=== PATIENT | female | born 1995 | race Caucasian/White ===

== ENCOUNTER 2018-08-07 18:46 | Emergency (ER) | payer MEDICAID, OTHER ==
[~2018-08-07] VITALS: Ht 170.2 cm; Wt 64.9 kg
[~2018-08-07 18:46] MED LIST: ACYC400T PO; BCP; FLUC200T45 PO; METR500T PO; SULF1TAB35 PO; TRAM50TA2 PO
--- OUTSIDE RECORDS SUMMARY | 2018-08-07 18:51 | XMS REPORT ---
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 Name Role Phone Migration, Doctor Unavailable Unavailable PROBLEMS Type Condition ICD9-CM Code AMN19-OU Code Onset Dates Condition Status SNOMED Code Problem ADD (attention deficit disorder) without hyperactivity F98.8 Active 17631653 Problem Depression, major, recurrent, in remission F33.40 Active 24511276 Problem Genital herpes, unspecified A60.00 Active 50286073 Problem Migraine with aura and without status migrainosus, not intractable G43.109 Active 2226887 Problem Moderate episode of recurrent major depressive disorder F33.1 Active 384132549 Problem Generalized anxiety disorder F41.1 Active 85210216 ALLERGIES No Information ENCOUNTERS Encounter Location Date Diagnosis [facility] [id number] [place] [address]- [address]903 Jul, [facility] [address] [address] Jun, ADD (attention deficit disorder) without hyperactivity F98.8 [facility] [id number] [place] [address] 53878- 1600 May, ADD (attention deficit disorder) without hyperactivity F98.8 [facility] [id number] [place] [address] 50529- 5163 Apr, ADD (attention deficit disorder) without hyperactivity F98.8 [facility] [id number] [place] [address] 69279- 5723 Mar, ADD (attention deficit disorder) without hyperactivity F98.8 [facility] [id number] [place] [address] 61385- 1367 Mar, ADD (attention deficit disorder) without hyperactivity F98.8 [facility] [address] [address] Feb, Acute bacterial conjunctivitis of left eye H10.022 [address] [place] [address] 35781- 6516 Feb, ADD (attention deficit disorder) without hyperactivity F98.8 ; Encounter for immunization Z23 and Rash R21 [id number] [address] Jan, [address] [id number] [place] [address] 68048- 4924 Dec, ADD (attention deficit disorder) without hyperactivity F98.8 [address] [id number] [place] [address] 42699- 5303 Dec, Generalized anxiety disorder F41.1 ; Depression, major, recurrent, in remission F33.40 and ADD (attention deficit disorder) without hyperactivity F98.8 [place] [id number] [place] [address] 28779- 7992 Nov, ADD (attention deficit disorder) without hyperactivity F98.8 [address] [address] [place] [address] 83720- 0243 Nov, Generalized anxiety disorder F41.1 ; Moderate episode of recurrent major depressive disorder F33.1 and ADD (attention deficit disorder) without hyperactivity F98.8 [address] [address] [address] [address] Oct, ADD (attention deficit disorder) without hyperactivity F98.8 [address] [address] [address] Oct, Generalized anxiety disorder F41.1 ; Moderate episode of recurrent major depressive disorder F33.1 and ADD (attention deficit disorder) without hyperactivity F98.8 [address] [address] [place] [address] 08524- 4578 Oct, Generalized anxiety disorder F41.1 ; Moderate episode of recurrent major depressive disorder F33.1 and ADD (attention deficit disorder) without hyperactivity F98.8 [address] [address] [address] Sep, ADD (attention deficit disorder) without hyperactivity F98.8 [facility] [id number] [place] [address] 49581- 1759 Sep, Generalized anxiety disorder F41.1 ; Moderate episode of recurrent major depressive disorder F33.1 and ADD (attention deficit disorder) without hyperactivity F98.8 [place] [id number] [place] [address] 18418- 4450 Sep, ADD (attention deficit disorder) without hyperactivity F98.8 [place] [id number] [place] [address] 78522- 0130 August, Generalized anxiety disorder F41.1 ; Moderate episode of recurrent major depressive disorder F33.1 and ADD (attention deficit disorder) without hyperactivity F98.8 [place] [id number] [place] [address] 51292- 9019 August, Generalized anxiety disorder F41.1 ; Moderate episode of recurrent major depressive disorder F33.1 and ADD (attention deficit disorder) without hyperactivity F98.8 [address] [address] [place] [address] 43131- 6535 Jul, ADD (attention deficit disorder) without hyperactivity F98.8 [address] [address] [address] 84[address] Jul, ADD (attention deficit disorder) without hyperactivity F98.8 [place] [address] [address] 8[address] Jul, Generalized anxiety disorder F41.1 ; Moderate episode of recurrent major depressive disorder F33.1 and ADD (attention deficit disorder) without hyperactivity F98.8 [address] [address] [address] [address] Jun, Rash R21 [facility] [id number] [place] [address] 47387- 8142 Jun, Generalized anxiety disorder F41.1 and ADD (attention deficit disorder) without hyperactivity F98.8 [facility] [id number] [place] [address] 65066 -3868 09 Jun, 2017 Skin lesion L98.9 [place] [id number] [place] [address] 68690- 5279 07 Jun, 2017 Severe persistent reactive airway disease with acute exacerbation J45.51 [address] [address] [address]- 6569 Jun, Generalized anxiety disorder F41.1 and ADD (attention deficit disorder) without hyperactivity F98.8 [facility] [address] [address] 16 May, 2017 Other specified bacterial agents as the cause of diseases classified elsewhere B96.89 and Acute pharyngitis due to other specified organisms J02.8 [address] [address] [address]- [address]275 14 May, 2017 Generalized anxiety disorder F41.1 [address] [address] 14296- 5778 14 May, 2017 Shortness of breath R06.02 ; Moderate episode of recurrent major depressive disorder F33.1 and Anxiety F41.9 [facility] [id number] [place] [address] 86437 -1150 14 Jan, 2017 Folliculitis L73.9 [address] [address] 68071- 7933 23 May, 2016 control counseling Z30.09 [place] [id number] [place] [address] 42674- 0147 15 Nov, 2015 Family planning, BCP ( control pills) maintenance Z30.41 [address] [address] 23602- 5171 August, [address] [address] 8[address]14- 0408 28 Danyel, 2016 Encounter for counseling regarding contraception Z30.9 ; Genital herpes, unspecified A60.00 ; OCP (oral contraceptive pills) initiation Z30.011 and Routine screening for STI (sexually transmitted infection) Z11.3 [facility] [address] [address] 14 Jul, 2014 [facility] [address] [address] 0155 Jul, [facility] [id number] [address]- 9608 Apr, [facility] [id number] [place] [address] 34601- 5764 Apr, [facility] [id number] [address] 74[address] Mar, [facility] [id number] [place] [address] 94024- 6510 Mar, [facility] [address] [address] 2307 Jan, [facility] [address] [address]- 3092 Jan, [facility] [address] [address]- 1519 Sep, [facility] [address] [address]- 5140 Sep, [facility] [address] [address]- 4821 Jul, [facility] [address] Jul, [facility] [address] [address] Jun, [facility] [address] [address] Jun, [facility] [place] [facility] [address] [id number] [place] [address]- 4510 May, [facility] [place] [facility] [address] [id number] [place] [address]- 1102 May, [facility] [place] [facility] [address] [id number] [place] [address]- 0663 May, [facility] [place] [facility] [address] [id number] [place] [address]- 8157 May, [facility] [place] [facility] [address] [id number] [place] [address]- 3184 May, [facility] [place] [facility] [address] [id number] [place] [address]- 7628 May, [facility] [place] [facility] [address] [id number] [place] [address]- 6278 May, [facility] [place] [facility] [address] [id number] [place] [address]- 3077 May, [facility] [place] [facility] [address] [id number] [place] [address]- 0076 May, [facility] [place] [facility] [address] [id number] [place] [address]- 4737 May, [facility] [place] [facility] [address] [id number] [place] [address]- 5977 Apr, [facility] [place] [facility] [address] [id number] [address]- 6868 Apr, [facility] [place] [facility] [address] [id number] [place] [address]- 8147 Apr, [facility] [place] [facility] [address] [id number] [place] [address]- 1817 Apr, [facility] [place] [facility] [address] [id number] [place] [address]- 0299 Apr, [facility] [place] [facility] [address] [id number] [place] [address]- 8235 17 Apr, 2013 [facility] [address] [id number] [place] [address]- 4027 Apr, [facility] [place] [facility] [address] [id number] [place] [address]- 0921 Apr, [facility] [place] [facility] [address] [id number] [place] [address]- 8295 Apr, [facility] [place] [facility] [address] [id number] [place] [address]- 8807 Apr, [facility] [place] [facility] [address] [id number] [place] [address]- 9007 Apr, [facility] [place] [facility] [address] [id number] [place] [address]- 2139 Apr, [facility] [place] [facility] [address] [id number] [place] [address]- 6848 Apr, [facility] [place] [facility] [address] [id number] [place] [address]- 4567 Apr, [facility] [place] [facility] [address] [id number] [place] [address]- 5934 Mar, [facility] [place] [facility] [address] [id number] [place] [address]- 8976 Mar, [facility] [place] [facility] [address] [id number] [place] [address]- 0642 Mar, [facility] [place] [facility] [address] [id number] [place] [address]- 5054 Mar, [facility] [place] [facility] [address] [id number] [place] [address]- 2011 Feb, [facility] [place] [facility] [address] [id number] [place] [address]- 3033 Feb, [facility] [place] [facility] [address] [id number] [place] [address]- 6944 Feb, [facility] [address] [facility] [id number] [place] [address] [address] Feb, [facility] [address] [facility] [id number] [address]- 4698 Nov, [facility] [address] [facility] [id number] [place] [address]- 4005 Sep, IMMUNIZATIONS No Known Immunizations SOCIAL HISTORY Never Assessed REASON FOR VISIT EMR-[facility] PLAN OF CARE VITAL SIGNS MEDICATIONS Unknown Medications RESULTS No Results PROCEDURES No Known procedures INSTRUCTIONS MEDICATIONS ADMINISTERED No Known Medications MEDICAL (GENERAL) HISTORY Type Description Date Medical History genital herpes Medical History depression Surgical History No know Surgical history
--- OUTSIDE RECORDS SUMMARY | 2018-08-07 18:51 | XMS REPORT ---
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 Web Services Name Role Phone FARIDA DE LUNA Unavailable PROBLEMS Type Condition ICD9-CM Code TLI59-TB Code Onset Dates Condition Status SNOMED Code Problem Depression, major, recurrent, in remission F33.40 Active 37606021 Problem ADD (attention deficit disorder) without hyperactivity F98.8 Active 32284944 Problem Migraine with aura and without status migrainosus, not intractable G43.109 Active 9004655 Problem Genital herpes, unspecified A60.00 Active 07155450 Problem Generalized anxiety disorder F41.1 Active 39895694 Problem Moderate episode of recurrent major depressive disorder F33.1 Active [id number] ALLERGIES No Information ENCOUNTERS Encounter Location Date Diagnosis [facility] [id number] [place] [address] 5925 Mar, ADD (attention deficit disorder) without hyperactivity F98.8 [facility] [id number] [place] [address]71 [address]61 Feb, Acute bacterial conjunctivitis of left eye H10.022 [facility] [id number] [place] [address]2853- 5515 Feb, ADD (attention deficit disorder) without hyperactivity F98.8 ; Encounter for immunization Z23 and Rash R21 [facility] [id number] [place] [address]80- 9953 Jan, [facility] [address] [address] Dec, ADD (attention deficit disorder) without hyperactivity F98.8 [facility] [address] [address] Dec, Generalized anxiety disorder F41.1 ; Depression, major, recurrent, in remission F33.40 and ADD (attention deficit disorder) without hyperactivity F98.8 [facility] [address] [address] Nov, ADD (attention deficit disorder) without hyperactivity F98.8 [facility] [address] [address] Nov, Generalized anxiety disorder F41.1 ; Moderate episode of recurrent major depressive disorder F33.1 and ADD (attention deficit disorder) without hyperactivity F98.8 [facility] [id number] [place] [address] 72973- 0788 Oct, ADD (attention deficit disorder) without hyperactivity F98.8 [place] [id number] [place] [address]- 4552 Oct, Generalized anxiety disorder F41.1 ; Moderate episode of recurrent major depressive disorder F33.1 and ADD (attention deficit disorder) without hyperactivity F98.8 [place] [address] [address] Oct, Generalized anxiety disorder F41.1 ; Moderate episode of recurrent major depressive disorder F33.1 and ADD (attention deficit disorder) without hyperactivity F98.8 [place] [address] [address] Sep, ADD (attention deficit disorder) without hyperactivity F98.8 [facility] [address] [address] Sep, Generalized anxiety disorder F41.1 ; Moderate episode of recurrent major depressive disorder F33.1 and ADD (attention deficit disorder) without hyperactivity F98.8 [facility] [address] [address] Sep, ADD (attention deficit disorder) without hyperactivity F98.8 [facility] [address] [address] August, Generalized anxiety disorder F41.1 ; Moderate episode of recurrent major depressive disorder F33.1 and ADD (attention deficit disorder) without hyperactivity F98.8 [place] [id number] [place] [address] 8[address]15- 8327 August, Generalized anxiety disorder F41.1 ; Moderate episode of recurrent major depressive disorder F33.1 and ADD (attention deficit disorder) without hyperactivity F98.8 [place] [id number] [place] [address]60- 5473 Jul, ADD (attention deficit disorder) without hyperactivity F98.8 [place] [id number] [place] [address] 12876- 2933 Jul, ADD (attention deficit disorder) without hyperactivity F98.8 [place] [id number] [place] [address] 14052- 1626 Jul, Generalized anxiety disorder F41.1 ; Moderate episode of recurrent major depressive disorder F33.1 and ADD (attention deficit disorder) without hyperactivity F98.8 [place] [id number] [place] [address] 87935- 1123 Jun, Rash R21 [place] [id number] [place] [address] 02143- 3480 Jun, Generalized anxiety disorder F41.1 and ADD (attention deficit disorder) without hyperactivity F98.8 [facility] [id number] [place] [address]4193 Jun, Skin lesion L98.9 [facility] [id number] [place] [address] 59909- 7203 Jun, Severe persistent reactive airway disease with acute exacerbation J45.51 [place] [id number] [place] [address] 67893- 0704 Jun, Generalized anxiety disorder F41.1 and ADD (attention deficit disorder) without hyperactivity F98.8 [facility] [id number] [place] [address] 11123 -3096 May, Other specified bacterial agents as the cause of diseases classified elsewhere B96.89 and Acute pharyngitis due to other specified organisms J02.8 [place] [id number] [place] [address] 90293- 9736 14 May, 2017 Generalized anxiety disorder F41.1 [place] [id number] [place] [address] 60558- 0088 14 May, 2017 Shortness of breath R06.02 ; Moderate episode of recurrent major depressive disorder F33.1 and Anxiety F41.9 [facility] [id number] [place] [address] 33808 -2419 14 Jan, 2017 Folliculitis L73.9 [place] [id number] [place] [address] 93000- 9322 23 May, 2016 control counseling Z30.09 [place] [address] [address]- [address] 15 Nov, 2015 Family planning, BCP ( control pills) maintenance Z30.41 [place] [id number] [place] [address] 27761- 9632 August, [place] [id number] [place] [address] 81697- 4086 Apr, Encounter for counseling regarding contraception Z30.9 ; Genital herpes, unspecified A60.00 ; OCP (oral contraceptive pills) initiation Z30.011 and Routine screening for STI (sexually transmitted infection) Z11.3 [place] [id number] [place] [address] 62764- 8861 Jul, [place] [id number] [place] [address] 94667- 0592 Jul, [place] [id number] [place] [address] 39371- 0635 Apr, [place] [id number] [place] [address] 43638- 4865 Apr, [facility] [place] [facility] [address] [id number] [place] [address]345 Mar, [facility] [place] [facility] [address] [id number] [place] [address]- 2861 Mar, [facility] [place] [facility] [address] [id number] [place] [address]- 9372 Jan, [facility] [place] [facility] [address] [id number] [place] [address]- 5098 Jan, [facility] [place] [facility] [address] [id number] [place] [address]- 7964 Sep, [facility] [place] [facility] [address] [id number] [place] [address]- 3089 Sep, [facility] [place] [facility] [address] [facility] [id number] [place] [address]- 5883 Jul, [facility] [place] [facility] [address] [id number] [place] [address]- 9156 Jul, [facility] [place] [facility] [address] [facility] [id number] [place] [address]- 6522 Jun, [facility] [place] [facility] [address] [facility] [id number] [place] [address]- 1765 Jun, [facility] [place] [facility] [address] [facility] [id number] [place] [address]- 9302 May, [facility] [place] [facility] [address] [id number] [address] 0017 May, [facility] [place] [facility] [address] [id number] [place] [address]- 6712 May, [facility] [place] [facility] [address] [id number] [place] [address]- 8950 May, [facility] [place] [facility] [address] [facility] [id number] [place] [address]- 3532 May, [facility] [place] [facility] [address] [facility] [id number] [address]- 9511 May, [facility] [place] [facility] [address] [id number] [place] [address]- 0336 May, [facility] [place] [facility] [address] [id number] [place] [address]- 3368 May, [facility] [place] [facility] [address] [id number] [place] [address]- 5276 May, [facility] [place] [facility] [address] [id number] [place] [address]- 7187 May, [facility] [place] [facility] [address] [id number] [place] [address]- 6999 Apr, [facility] [place] [facility] [address] [id number] [place] [address]- 4471 Apr, [facility] [place] [facility] [address] [id number] [place] [address]- 1021 Apr, [facility] [place] [facility] [address] [id number] [place] [address]- 4665 Apr, [facility] [place] [facility] [address] [id number] [place] [address]- 1781 Apr, [facility] [place] [facility] [address] [id number] [place] [address]- 0827 Apr, [facility] [place] [facility] [address] [id number] [place] [address]- 1553 Apr, [facility] [place] [facility] [address] [id number] [place] [address]- 1567 Apr, [facility] [place] [facility] [address] [id number] [place] [address]- 3183 Apr, [facility] [place] [facility] [address] [id number] [place] [address]- 2965 Apr, [facility] [place] [facility] [address] [id number] [place] [address]- 2265 Apr, [facility] [address] [facility] [id number] [address]- [address] Apr, [facility] [address] [address]- 9496 Apr, [facility] [address] [facility] [id number] [place] [address]- 5876 Apr, [facility] [address] [address]- 0063 Mar, [facility] [address] [facility] [id number] [address]- 1832 Mar, [facility] [id number] [place] [address] 06012- 9736 Mar, [facility] [address] [address]- 9750 Mar, [facility] [address] [address]- 6325 Feb, [facility] [address] [address] Feb, [facility] [address] [address]- 8038 Feb, [facility] [address] [address]- 1466 Feb, [facility] [address] [address]- 8139 Nov, [facility] [id number] [address]- 4819 Sep, IMMUNIZATIONS No Known Immunizations SOCIAL HISTORY Never Assessed REASON FOR VISIT Controlled Med Refill PLAN OF CARE VITAL SIGNS MEDICATIONS Medication Instructions Dosage Frequency Start Date End Date Duration Status Vyvanse 20 MG Orally Once a day 1 tablet in the morning 24h Mar, 28 days Active RESULTS No Results PROCEDURES No Known procedures INSTRUCTIONS MEDICATIONS ADMINISTERED No Known Medications MEDICAL (GENERAL) HISTORY Type Description Date Medical History genital herpes Medical History depression Surgical History No know Surgical history
--- OUTSIDE RECORDS SUMMARY | 2018-08-07 18:51 | XMS REPORT ---
Author Author YENNIFER DE LUNA [facility] IN [facility] Address [address] [place] [address] Care Team Providers Care Triage Assistant Name Role Phone YENNIFER DE LUNA Unavailable PROBLEMS Type Condition ICD9-CM Code AET87-HW Code Onset Dates Condition Status SNOMED Code Problem Depression, major, recurrent, in remission F33.40 Active 36623043 Problem ADD (attention deficit disorder) without hyperactivity F98.8 Active 45710970 Problem Migraine with aura and without status migrainosus, not intractable G43.109 Active 1112003 Problem Genital herpes, unspecified A60.00 Active 17551910 Problem Generalized anxiety disorder F41.1 Active 18601957 Problem Moderate episode of recurrent major depressive disorder F33.1 Active 676108869 ALLERGIES Substance Reaction Event Type Date Status Penicillin V Potassium rash Drug Allergy Feb, Active ENCOUNTERS Encounter Location Date Diagnosis [facility], [place] [address] [address] Mar, ADD (attention deficit disorder) without hyperactivity F98.8 [facility] [address] [address] Feb, Acute bacterial conjunctivitis of left eye H10.022 [facility], [place] [address] [address] 7[address] Feb, ADD (attention deficit disorder) without hyperactivity F98.8 ; Encounter for immunization Z23 and Rash R21 [facility], [place] [address] [address] Jan, [facility], [place] [address] [address] Dec, ADD (attention deficit disorder) without hyperactivity F98.8 [facility], [place] [address] [place] [address] Dec, Generalized anxiety disorder F41.1 ; Depression, major, recurrent, in remission F33.40 and ADD (attention deficit disorder) without hyperactivity F98.8 [facility], [place] [address] [address] Nov, ADD (attention deficit disorder) without hyperactivity F98.8 [place] [address] [place] [id number] [place] [address] 83881- 2471 Nov, Generalized anxiety disorder F41.1 ; Moderate episode of recurrent major depressive disorder F33.1 and ADD (attention deficit disorder) without hyperactivity F98.8 [place] [id number] [place] [address] 75323- 3044 Oct, ADD (attention deficit disorder) without hyperactivity F98.8 [place] [address] [id number] [place] [address] 24232- 4325 Oct, Generalized anxiety disorder F41.1 ; Moderate episode of recurrent major depressive disorder F33.1 and ADD (attention deficit disorder) without hyperactivity F98.8 [place] [address] [address] 74[address] Oct, Generalized anxiety disorder F41.1 ; Moderate episode of recurrent major depressive disorder F33.1 and ADD (attention deficit disorder) without hyperactivity F98.8 [place] [address] [address] Sep, ADD (attention deficit disorder) without hyperactivity F98.8 [facility], [place] [address] [address] 20[address] Sep, Generalized anxiety disorder F41.1 ; Moderate episode of recurrent major depressive disorder F33.1 and ADD (attention deficit disorder) without hyperactivity F98.8 [place] [address] [address] 1628 Sep, ADD (attention deficit disorder) without hyperactivity F98.8 [place] [address] [id number] [place] [address] 06692- 5896 August, Generalized anxiety disorder F41.1 ; Moderate episode of recurrent major depressive disorder F33.1 and ADD (attention deficit disorder) without hyperactivity F98.8 [place] [address] [id number] [place] [address] 98497- 7315 August, Generalized anxiety disorder F41.1 ; Moderate episode of recurrent major depressive disorder F33.1 and ADD (attention deficit disorder) without hyperactivity F98.8 [place] [address] [id number] [place] [address] 40712- 3058 Jul, ADD (attention deficit disorder) without hyperactivity F98.8 [place] [address] [id number] [place] [address] 00973- 9876 Jul, ADD (attention deficit disorder) without hyperactivity F98.8 [place] [address] [id number] [place] [address] 03246- 3672 Jul, Generalized anxiety disorder F41.1 ; Moderate episode of recurrent major depressive disorder F33.1 and ADD (attention deficit disorder) without hyperactivity F98.8 [place] [address] [id number] [place] [address] 12534- 4717 Jun, Rash R21 [place] [address] [id number] [place] [address] 48623- 9915 Jun, Generalized anxiety disorder F41.1 and ADD (attention deficit disorder) without hyperactivity F98.8 [facility] [id number] [place] [address] 32777 -8747 Jun, Skin lesion L98.9 [place] [address] [id number] [place] [address] 90143- 5706 Jun, Severe persistent reactive airway disease with acute exacerbation J45.51 [facility], [place] [address] [place] [id number] [place] [address] 85772- 4929 Jun, Generalized anxiety disorder F41.1 and ADD (attention deficit disorder) without hyperactivity F98.8 [facility] [id number] [place] [address] 63089 -9333 16 May, 2017 Other specified bacterial agents as the cause of diseases classified elsewhere B96.89 and Acute pharyngitis due to other specified organisms J02.8 [place] [address] [id number] [place] [address] 58155- 1999 14 May, 2017 Generalized anxiety disorder F41.1 [place] [address] [address]- 1264 14 May, 2017 Shortness of breath R06.02 ; Moderate episode of recurrent major depressive disorder F33.1 and Anxiety F41.9 [facility] IN [facility] [address] [address] 14 Jan, 2017 Folliculitis L73.9 [place] [address] [address]- 5093 23 May, 2016 control counseling Z30.09 [place] [address] [address]- 4974 15 Nov, 2015 Family planning, BCP ( control pills) maintenance Z30.41 [place] [address] [address]- 5551 August, [place] [address] [address]- 6[address] Apr, Encounter for counseling regarding contraception Z30.9 ; Genital herpes, unspecified A60.00 ; OCP (oral contraceptive pills) initiation Z30.011 and Routine screening for STI (sexually transmitted infection) Z11.3 [place] [address] [id number] [place] [address] 76739- 7830 Jul, [place] [address] 81724- 2613 Jul, [place] [address] 69482- 7626 Apr, [place] [address] [address]- 8065 Apr, [facility] [place] [facility] [address] [id number] [place] [address]- 2318 Mar, [facility] [place] [facility] [address] [id number] [place] [address]- 8647 Mar, [facility] [place] [facility] [address] [facility] [id number] [place] [address]- 7489 Jan, [facility] [place] [facility] [address] [id number] [place] [address]- 9564 Jan, [facility] [place] [facility] [address] [id number] [place] [address]- 2885 Sep, [facility] [place] [facility] [address] [facility] [id number] [place] [address]- 1423 Sep, [facility] [place] [facility] [address] [facility] [id number] [place] [address]- 5107 Jul, [facility] [place] [facility] [address] [id number] [place] [address]- 6500 Jul, [facility] [place] [facility] [address] [facility] [id number] [place] [address]- 8487 Jun, [facility] [place] [facility] [address] [facility] [id number] [place] [address]- 3601 Jun, [facility] [place] [facility] [address] [facility] [id number] [address]- 7332 May, [facility] [place] [facility] [address] [id number] [address]- 8708 May, [facility] [place] [facility] [address] [id number] [place] [address]- 3463 May, [facility] [place] [facility] [address] [facility] [id number] [place] [address]- 0218 May, [facility] [place] [facility] [address] [facility] [id number] [place] [address]- 7382 May, [facility] [place] [facility] [address] [id number] [place] [address]- 6926 May, [facility] [place] [facility] [address] [id number] [place] [address]- 0739 May, [facility] [place] [facility] [address] [id number] [place] [address]- 6164 May, [facility] [place] [facility] [address] [id number] [place] [address]- 1230 May, [facility] [place] [facility] [address] [id number] [place] [address]- 3969 May, [facility] [place] [facility] [address] [id number] [place] [address]- 9986 Apr, [facility] [place] [facility] [address] [id number] [place] [address]- 0828 Apr, [facility] [place] [facility] [address] [id number] [place] [address]- 2144 Apr, [facility] [place] [facility] [address] [id number] [place] [address]- 7922 Apr, [facility] [place] [facility] [address] [id number] [place] [address]- 4207 Apr, [facility] [place] [facility] [address] [id number] [place] [address]- 1239 Apr, [facility] [place] [facility] [address] [id number] [place] [address]- 8472 Apr, [facility] [place] [facility] [address] [id number] [place] [address]- 7469 Apr, [facility] [place] [facility] [address] [id number] [place] [address]- 0521 Apr, [facility] [place] [facility] [address] [id number] [place] [address]- 8177 Apr, [facility] [place] [facility] [address] [id number], [place] [address]- 2178 Apr, [facility], [place] [id number] [address] Apr, [facility], [place] [address], [place] [address]- 9136 Apr, [facility], [place] [id number] 67[address] Apr, [facility], [place] [address] [address] Mar, [facility], [place] [id number] 1294 Mar, [facility], [place] [address] [address] Mar, [facility], [place] [address] [address] Mar, [facility], [place] [address], [place] [address]- 2200 Feb, [facility], [place] [address], [place] [address]- 9449 Feb, [facility], [place] [address], [place] [address]- 1571 Feb, [facility], [place] [id number] [address]- 3080 Feb, [facility], [place] [id number] [address]- 9242 Nov, [facility], [place] [id number] [address] Sep, IMMUNIZATIONS No Known Immunizations SOCIAL HISTORY Never Assessed REASON FOR VISIT woke up this am with left eye red, swollen, itching, painful, et red. repirts some drainage last noc. [email or web address] PLAN OF CARE Activity Details Follow Up if not improving with PCP or reg follow up Reason: VITAL SIGNS Height 67 in 2018-03-02 Weight 145.2 lbs 2018-03-02 Temperature 97.0 degrees Fahrenheit 2018-03-02 Heart Rate 90 bpm 2018-03-02 Respiratory Rate 20 2018-03-02 BMI 22.74 kg/m2 2018-03-02 Blood pressure systolic 118 mmHg 2018-03-02 Blood pressure diastolic 76 mmHg 2018-03-02 MEDICATIONS Medication Instructions Dosage Frequency Start Date End Date Duration Status Benadryl Allergy 25 MG Orally every 8 hrs 1 tablet as needed 8h Active Gentamicin Sulfate 0.3 % Ophthalmic every 4 hrs 1 drop into affected eye 4h Feb, 7 days Active Vyvanse 20 MG Orally Once a day 1 tablet in the morning 24h Dec, 28 days Active RESULTS No Results PROCEDURES No Known procedures INSTRUCTIONS MEDICATIONS ADMINISTERED No Known Medications MEDICAL (GENERAL) HISTORY Type Description Date Medical History genital herpes Medical History depression Surgical History No know Surgical history
--- OUTSIDE RECORDS SUMMARY | 2018-08-07 18:52 | XMS REPORT ---
Author Author FARIDA DE LUNA Organization [facility] Address [address] [place] [address] Care Team Providers Care Account Executive Trainee Name Role Phone FARIDA DE LUNA Unavailable PROBLEMS Type Condition ICD9-CM Code AFW48-HK Code Onset Dates Condition Status SNOMED Code Problem ADD (attention deficit disorder) without hyperactivity F98.8 Active 24428827 Problem Generalized anxiety disorder F41.1 Active 04084378 Problem Genital herpes, unspecified A60.00 Active 35329518 Problem Moderate episode of recurrent major depressive disorder F33.1 Active 289270431 Problem Migraine with aura and without status migrainosus, not intractable G43.109 Active 9214471 ALLERGIES No Information ENCOUNTERS Encounter Location Date Diagnosis [place] [address] [id number] [place] [address]0719- 9896 Dec, [place] [address] [address]- [address] Nov, ADD (attention deficit disorder) without hyperactivity F98.8 [place] [address] [place] [address] [id number] [place] [address] 40186- 9992 Nov, Generalized anxiety disorder F41.1 ; Moderate episode of recurrent major depressive disorder F33.1 and ADD (attention deficit disorder) without hyperactivity F98.8 [place] [address] [place] [address] [id number] [place] [address] 86040- 8714 Oct, ADD (attention deficit disorder) without hyperactivity F98.8 [place] [address] [place] [address] [id number] [place] [address] 32786- 8892 Oct, Generalized anxiety disorder F41.1 ; Moderate episode of recurrent major depressive disorder F33.1 and ADD (attention deficit disorder) without hyperactivity F98.8 [place] [address] [place] [address]- 3537 Oct, Generalized anxiety disorder F41.1 ; Moderate episode of recurrent major depressive disorder F33.1 and ADD (attention deficit disorder) without hyperactivity F98.8 [facility] [address] [place] [address] 78609- 7549 Sep, ADD (attention deficit disorder) without hyperactivity F98.8 [facility] [address] [place] [id number] [place] [address] 60835- 6492 Sep, Generalized anxiety disorder F41.1 ; Moderate episode of recurrent major depressive disorder F33.1 and ADD (attention deficit disorder) without hyperactivity F98.8 [place] [address] [place] [address] [id number] [place] [address] 23198- 2734 Sep, ADD (attention deficit disorder) without hyperactivity F98.8 [place] [address] [place] [id number] [place] [address] 76622- 0230 August, Generalized anxiety disorder F41.1 ; Moderate episode of recurrent major depressive disorder F33.1 and ADD (attention deficit disorder) without hyperactivity F98.8 [facility] [address] [place] [address] 84763- 9647 August, Generalized anxiety disorder F41.1 ; Moderate episode of recurrent major depressive disorder F33.1 and ADD (attention deficit disorder) without hyperactivity F98.8 [place] [address] [place] [address] 31116- 1888 Jul, ADD (attention deficit disorder) without hyperactivity F98.8 [facility] [address], [place] [address]- 6134 Jul, ADD (attention deficit disorder) without hyperactivity F98.8 [facility] [address], [place] [address]- 2163 Jul, Generalized anxiety disorder F41.1 ; Moderate episode of recurrent major depressive disorder F33.1 and ADD (attention deficit disorder) without hyperactivity F98.8 [place] [address] [place] [address] 74599- 0740 Jun, Rash R21 [place] [address] [place] [address] [id number] [place] [address] 95589- 0654 Jun, Generalized anxiety disorder F41.1 and ADD (attention deficit disorder) without hyperactivity F98.8 [facility] [id number] [place] [address] 89131 -6521 09 Jun, 2017 Skin lesion L98.9 [place] [address] [place] [address] [id number] [place] [address] 49507- 0490 Jun, Severe persistent reactive airway disease with acute exacerbation J45.51 [place] [address] 27677- 5419 Jun, Generalized anxiety disorder F41.1 and ADD (attention deficit disorder) without hyperactivity F98.8 [facility] IN [place] [id number] [place] [address] 60804 -1597 16 May, 2017 Other specified bacterial agents as the cause of diseases classified elsewhere B96.89 and Acute pharyngitis due to other specified organisms J02.8 [place] [address] [place] [id number] [place] [address] 46042- 1270 14 May, 2017 Generalized anxiety disorder F41.1 [place] [address] [place] [id number] [place] [address] 29619- 8262 14 May, 2017 Shortness of breath R06.02 ; Moderate episode of recurrent major depressive disorder F33.1 and Anxiety F41.9 [facility] IN [facility] [id number] [place] [address] 62702 -6371 14 Jan, 2017 Folliculitis L73.9 [place] [address] 74351- 6521 23 May, 2016 control counseling Z30.09 [place] [address] [place] [address] [id number] [place] [address] 19984- 3616 15 Nov, 2015 Family planning, BCP ( control pills) maintenance Z30.41 [place] [address], [place] [address]- 2791 August, [facility] [address] [facility] [id number], [place] [address]- 6787 Apr, Encounter for counseling regarding contraception Z30.9 ; Genital herpes, unspecified A60.00 ; OCP (oral contraceptive pills) initiation Z30.011 and Routine screening for STI (sexually transmitted infection) Z11.3 [facility] [address] [facility] [id number], [place] [address]- 2565 14 Jul, 2014 [facility] [address] [facility] [id number], [place] [address]- 3629 Jul, [facility] [address] [id number] [place] [address] 29970- 3826 Apr, [facility] [id number] [address]- 0955 Apr, [facility] [address], [place] [address]- 0012 Mar, [facility] [address], [place] [address]- 8195 Mar, [facility] [address], [place] [address]- 0010 Jan, [facility] [address], [place] [address]- 7608 Jan, [facility] [address], [place] [address]- 3070 Sep, [facility] [address] [facility] [id number], [place] [address]- 3935 Sep, [facility] [address] [facility] [id number], [place] [address]- 0602 Jul, [facility] [address] [place] [id number], [place] [address]- 6619 Jul, [facility] [id number] [place] [address], [place] [address]- 6187 Jun, [facility] [place] [facility] [address] [id number] [place] [address]- 3386 Jun, [facility] [place] [facility] [address] [id number] [place] [address]- 9270 May, [facility] [place] [facility] [address] [id number] [place] [address]- 4015 May, [facility] [place] [facility] [address] [id number] [place] [address]- 6571 May, [facility] [place] [facility] [address] [id number] [place] [address]- 3277 May, [facility] [place] [facility] [address] [id number] [place] [address]- 0587 May, [facility] [place] [facility] [address] [id number] [place] [address]- 7182 May, [facility] [place] [facility] [address] [id number] [place] [address]- 9969 May, [facility] [place] [facility] [address] [facility] [id number] [place] [address]- 4037 May, [facility] [place] [facility] [address] [facility] [id number] [place] [address]- 1687 May, [facility] [place] [facility] [address] [id number] [place] [address]- 2866 May, [facility] [place] [facility] [address] [id number] [place] [address]- 6203 Apr, [facility] [place] [facility] [address] [id number] [place] [address]- 5807 Apr, [facility] [place] [facility] [address] [id number] [place] [address]- 2347 Apr, [facility] [place] [facility] [address] [id number] [place] [address]- 5977 Apr, [facility] [place] [facility] [address] [id number] [place] [address]- 8819 Apr, [facility] [place] [facility] [address] [id number] [place] [address]- 0525 Apr, [facility] [place] [facility] [address] [id number] [place] [address]- 6691 Apr, [facility] [place] [facility] [address] [id number] [place] [address]- 1573 Apr, [facility] [place] [facility] [address] [id number] [place] [address]- 6504 Apr, [facility] [place] [facility] [address] [id number] [place] [address]- 9215 Apr, [facility] [place] [facility] [address] [id number] [place] [address]- 3887 Apr, [facility] [place] [facility] [address] [id number] [place] [address]- 3472 Apr, [facility] [place] [facility] [address] [id number] [place] [address]- 5420 Apr, [facility] [place] [facility] [address] [id number] [place] [address]- 2516 Apr, [facility] [place] [facility] [address] [id number], [place] [address]- 7784 Mar, [facility] [place] [facility] [address] [id number], [place] [address]- 4705 Mar, [facility] [place] [facility] [address] [id number] [place] [address]- 5636 Mar, [facility] [place] [facility] [address] [id number][place] [address] Mar, [facility] [place] [facility] [address] [id number], [place] [address] Feb, [facility] [place] [facility] [address] [facility] [id number] [place] [address] Feb, [facility] [address] [facility] [id number], [place] [address] Feb, [facility] [address] [facility] [id number], [place] [address] Feb, [facility] [address] [facility] [id number], [place] [address] Nov, [facility] [address] [facility] [id number], [place] [address] Sep, IMMUNIZATIONS No Known Immunizations SOCIAL HISTORY Never Assessed REASON FOR VISIT controlled med refill PLAN OF CARE VITAL SIGNS MEDICATIONS Medication Instructions Dosage Frequency Start Date End Date Duration Status Vyvanse 20 MG Orally Once a day 1 tablet in the morning 24h Oct, 28 days Active RESULTS No Results PROCEDURES No Known procedures INSTRUCTIONS MEDICATIONS ADMINISTERED No Known Medications MEDICAL (GENERAL) HISTORY Type Description Date Medical History genital herpes Medical History depression
--- OUTSIDE RECORDS SUMMARY | 2018-08-07 18:52 | XMS REPORT ---
Author Author OSMEL GARCIA Organization [facility] Address [address] [place] [address] Care Team Providers Care Lever Operator Name Role Phone RADHA OSMEL Unavailable PROBLEMS Type Condition ICD9-CM Code [id number] Code Onset Dates Condition Status SNOMED Code Problem Depression, major, recurrent, in remission F33.40 Active 97696581 Problem ADD (attention deficit disorder) without hyperactivity F98.8 Active 95672571 Problem Migraine with aura and without status migrainosus, not intractable G43.109 Active 4906626 Problem Genital herpes, unspecified A60.00 Active 78042421 Problem Generalized anxiety disorder F41.1 Active 33540316 Problem Moderate episode of recurrent major depressive disorder F33.1 Active 812530315 ALLERGIES No Information ENCOUNTERS Encounter Location Date Diagnosis [place] [address] [place] [address] 85731- 4341 Dec, Generalized anxiety disorder F41.1 ; Depression, major, recurrent, in remission F33.40 and ADD (attention deficit disorder) without hyperactivity F98.8 [place] [address] [place] [address] 76982- 4339 Nov, ADD (attention deficit disorder) without hyperactivity F98.8 [place] [address] [place] [id number] [place] [address] 01609- 1994 Nov, Generalized anxiety disorder F41.1 ; Moderate episode of recurrent major depressive disorder F33.1 and ADD (attention deficit disorder) without hyperactivity F98.8 [place] [address] [place] [address] 45713- 2266 Oct, ADD (attention deficit disorder) without hyperactivity F98.8 [place] [address] [place] [id number] [place] [address] 66826- 1855 Oct, Generalized anxiety disorder F41.1 ; Moderate episode of recurrent major depressive disorder F33.1 and ADD (attention deficit disorder) without hyperactivity F98.8 [facility] [address] [address] 9387 Oct, Generalized anxiety disorder F41.1 ; Moderate episode of recurrent major depressive disorder F33.1 and ADD (attention deficit disorder) without hyperactivity F98.8 [facility] [address] [place] [id number] [place] [address] 08251- 8038 Sep, ADD (attention deficit disorder) without hyperactivity F98.8 [facility] [address] [place] [id number] [address] 3113 Sep, Generalized anxiety disorder F41.1 ; Moderate episode of recurrent major depressive disorder F33.1 and ADD (attention deficit disorder) without hyperactivity F98.8 [place] [address] [address]- 3967 Sep, ADD (attention deficit disorder) without hyperactivity F98.8 [facility] [address] [place] [id number] [address] August, Generalized anxiety disorder F41.1 ; Moderate episode of recurrent major depressive disorder F33.1 and ADD (attention deficit disorder) without hyperactivity F98.8 [facility] [address] [address]- 2294 August, Generalized anxiety disorder F41.1 ; Moderate episode of recurrent major depressive disorder F33.1 and ADD (attention deficit disorder) without hyperactivity F98.8 [facility] [address], [place] [address]- 5998 Jul, ADD (attention deficit disorder) without hyperactivity F98.8 [facility] [address] [place] [id number] [address] 5551 Jul, ADD (attention deficit disorder) without hyperactivity F98.8 [facility] [address] [place] [id number] [address]- 9187 Jul, Generalized anxiety disorder F41.1 ; Moderate episode of recurrent major depressive disorder F33.1 and ADD (attention deficit disorder) without hyperactivity F98.8 [place] [address] [place] [id number] [place] [address] 27205- 8248 Jun, Rash R21 [facility] [address] [place] [id number] [place] [address] 28957- 1968 Jun, Generalized anxiety disorder F41.1 and ADD (attention deficit disorder) without hyperactivity F98.8 [facility] [address] [place] [address] [id number] [place] [address] 88085 -9383 09 Jun, 2017 Skin lesion L98.9 [place] [address] [address]80- 7493 07 Jun, 2017 Severe persistent reactive airway disease with acute exacerbation J45.51 [place] [address] [place] [id number] [place] [address] 61922- 0602 Jun, Generalized anxiety disorder F41.1 and ADD (attention deficit disorder) without hyperactivity F98.8 [facility] [address] [place] [id number] [place] [address] 19824 -7982 16 May, 2017 Other specified bacterial agents as the cause of diseases classified elsewhere B96.89 and Acute pharyngitis due to other specified organisms J02.8 [place] [address] [place] [address] 49291- 0063 14 May, 2017 Generalized anxiety disorder F41.1 [place] [address] [place] [id number] [place] [address] 82262- 3896 14 May, 2017 Shortness of breath R06.02 ; Moderate episode of recurrent major depressive disorder F33.1 and Anxiety F41.9 [facility] [address] [place] [id number] [place] [address] 02241 -3159 14 Jan, 2017 Folliculitis L73.9 [place] [address] [place] [id number] [place] [address] 94677- 8540 23 May, 2016 control counseling Z30.09 [place] [address] [place] [address]- 6897 15 Nov, 2015 Family planning, BCP ( control pills) maintenance Z30.41 [facility] [address] [place] [id number] [place] [address] 13361- 6940 August, [facility] [address] [place] [address] 10740- 6773 28 Apr, 2015 Encounter for counseling regarding contraception Z30.9 ; Genital herpes, unspecified A60.00 ; OCP (oral contraceptive pills) initiation Z30.011 and Routine screening for STI (sexually transmitted infection) Z11.3 [facility] [address] [place] [address] 18158- 3745 14 Jul, 2014 [facility] [address] [place] [id number] [place] [address] 41456- 5084 Jul, [facility] [address] [place] [id number] [place] [address] 81771- 6021 Apr, [facility] [address] [place] [address] 35651- 8155 Apr, [facility] [address] [place] [address] 26905- 9233 Mar, [facility] [address], [place] [address]- 2445 Mar, [facility] [address], [place] [address]- 4350 Jan, [facility] [address], [place] [address]- 9474 Jan, [facility] [address], [place] [address]- 4012 Sep, [facility] [address] [address]- 2131 Sep, [facility] [address], [place] [address]- 0325 Jul, [facility] [place] [facility] [address] [id number] [place] [address]- 7115 Jul, [facility] [place] [facility] [address] [id number] [place] [address]- 9446 Jun, [facility] [place] [facility] [address] [id number] [place] [address]- 9747 Jun, [facility] [place] [facility] [address] [id number] [place] [address]- 2189 May, [facility] [place] [facility] [address] [id number] [place] [address]- 2349 May, [facility] [place] [facility] [address] [id number] [place] [address]- 7897 May, [facility] [place] [facility] [address] [id number] [place] [address]- 3950 May, [facility] [place] [facility] [address] [id number] [place] [address]- 0070 May, [facility] [place] [facility] [address] [id number] [place] [address]- 6818 May, [facility] [place] [facility] [address] [id number] [place] [address]- 2948 May, [facility] [place] [facility] [address] [id number] [place] [address]- 9334 May, [facility] [place] [facility] [address] [id number] [place] [address]- 9883 May, [facility] [place] [facility] [address] [id number] [place] [address]- 9978 May, [facility] [place] [facility] [address] [id number] [place] [address]- 2722 Apr, [facility] [place] [facility] [address] [id number] [place] [address]- 9886 Apr, [facility] [place] [facility] [address] [id number] [place] [address]- 1171 Apr, [facility] [address] [id number] [place] [address]- 6849 Apr, [facility] [place] [facility] [address] [id number] [place] [address]- 1243 Apr, [facility] [place] [facility] [address] [id number] [place] [address]- 3953 Apr, [facility] [place] [facility] [address] [id number] [place] [address]- 2039 Apr, [facility] [place] [facility] [address] [id number] [place] [address]- 9777 Apr, [facility] [place] [facility] [address] [id number] [place] [address]- 5875 Apr, [facility] [place] [facility] [address] [id number] [place] [address]- 2520 Apr, [facility] [place] [facility] [address] [id number] [place] [address]- 2379 Apr, [facility] [place] [facility] [address] [id number] [place] [address]- 7138 Apr, [facility] [place] [facility] [address] [id number] [place] [address]- 1011 Apr, [facility] [place] [facility] [address] [id number] [place] [address]- 2336 Apr, [facility] [place] [facility] [address] [id number] [place] [address]- 8314 Mar, [facility] [place] [facility] [address] [id number] [place] [address]- 5084 Mar, [facility] [place] [facility] [address] [id number] [place] [address]- 3284 Mar, [facility] [place] [facility] [address] [id number] [place] [address]- 8900 Mar, [facility] [address] [place] [id number] [address]- 2333 Feb, [facility] [address] [place] [id number] [address]- 1825 Feb, [facility] [address], [place] [address]- 7164 Feb, [facility] [address], [place] [address]- 3326 Feb, [facility] [address] [address]- 7579 Nov, [facility] [address] [place] [id number] 3515 Sep, IMMUNIZATIONS No Known Immunizations SOCIAL HISTORY Never Assessed REASON FOR VISIT Follow-up Anxiety PLAN OF CARE Activity Details Follow Up 4 Weeks Reason: Follow-up VITAL SIGNS MEDICATIONS Unknown Medications RESULTS No Results PROCEDURES Procedure Date Ordered Result Body Site Psychotherapy, patient &/family, 30 minutes, established patient Nov 14, 2017 INSTRUCTIONS MEDICATIONS ADMINISTERED No Known Medications MEDICAL (GENERAL) HISTORY Type Description Date Medical History genital herpes Medical History depression
--- OUTSIDE RECORDS SUMMARY | 2018-08-07 18:52 | XMS REPORT ---
Author Author FARIDA DE LUNA Organization [facility] Address [address] [place] [address] Care Team Providers Care Mail Officer Name Role Phone FARIDA DE LUNA Unavailable PROBLEMS Type Condition ICD9-CM Code WXB60-GP Code Onset Dates Condition Status SNOMED Code Problem Depression, major, recurrent, in remission F33.40 Active 53304478 Problem ADD (attention deficit disorder) without hyperactivity F98.8 Active 84866989 Problem Migraine with aura and without status migrainosus, not intractable G43.109 Active 3027301 Problem Genital herpes, unspecified A60.00 Active 61955337 Problem Generalized anxiety disorder F41.1 Active 92210507 Problem Moderate episode of recurrent major depressive disorder F33.1 Active 064522175 ALLERGIES No Information ENCOUNTERS Encounter Location Date Diagnosis [place] [address] [place] [id number] [place] [address] 19366- 7747 Dec, Generalized anxiety disorder F41.1 ; Depression, major, recurrent, in remission F33.40 and ADD (attention deficit disorder) without hyperactivity F98.8 [place] [address] [place] [address] 86447- 1193 Nov, ADD (attention deficit disorder) without hyperactivity F98.8 [facility] [address] [place] [id number] [place] [address] 40008- 4710 Nov, Generalized anxiety disorder F41.1 ; Moderate episode of recurrent major depressive disorder F33.1 and ADD (attention deficit disorder) without hyperactivity F98.8 [place] [address] [place] [id number] [place] [address] 36710- 6745 Oct, ADD (attention deficit disorder) without hyperactivity F98.8 [place] [address] [place] [id number] [place] [address] 59424- 9918 Oct, Generalized anxiety disorder F41.1 ; Moderate episode of recurrent major depressive disorder F33.1 and ADD (attention deficit disorder) without hyperactivity F98.8 [facility] [address], [place] [address]- 6393 Oct, Generalized anxiety disorder F41.1 ; Moderate episode of recurrent major depressive disorder F33.1 and ADD (attention deficit disorder) without hyperactivity F98.8 [facility] [address] [place] [id number] [place] [address] 58627- 3599 Sep, ADD (attention deficit disorder) without hyperactivity F98.8 [facility] [address] [place] [id number] [place] [address] 77889- 2970 Sep, Generalized anxiety disorder F41.1 ; Moderate episode of recurrent major depressive disorder F33.1 and ADD (attention deficit disorder) without hyperactivity F98.8 [place] [address], [place] [address]- 8681 Sep, ADD (attention deficit disorder) without hyperactivity F98.8 [facility] [address] [place] [id number] [place] [address] 44064- 3877 August, Generalized anxiety disorder F41.1 ; Moderate episode of recurrent major depressive disorder F33.1 and ADD (attention deficit disorder) without hyperactivity F98.8 [facility] [address], [place] [address]- 2763 August, Generalized anxiety disorder F41.1 ; Moderate episode of recurrent major depressive disorder F33.1 and ADD (attention deficit disorder) without hyperactivity F98.8 [facility] [address], [place] [address]- 6456 Jul, ADD (attention deficit disorder) without hyperactivity F98.8 [facility] [address], [place] [address]- 6276 Jul, ADD (attention deficit disorder) without hyperactivity F98.8 [facility] [address], [place] [address]- 1122 Jul, Generalized anxiety disorder F41.1 ; Moderate episode of recurrent major depressive disorder F33.1 and ADD (attention deficit disorder) without hyperactivity F98.8 [place] [address] [place] [id number] [place] [address] 95447- 7654 29 Jun, 2017 Rash R21 [place] [address] [place] [id number] [place] [address] 27644- 6459 Jun, Generalized anxiety disorder F41.1 and ADD (attention deficit disorder) without hyperactivity F98.8 [facility] [address] [place] [id number] [place] [address] 58074 -8649 09 Jun, 2017 Skin lesion L98.9 [place] [address] 88755- 5862 07 Jun, 2017 Severe persistent reactive airway disease with acute exacerbation J45.51 [place] [address] [place] [id number] [place] [address] 50587- 4263 Jun, Generalized anxiety disorder F41.1 and ADD (attention deficit disorder) without hyperactivity F98.8 [facility] [place] [address] [place] [id number] [place] [address] 26035 -3292 16 May, 2017 Other specified bacterial agents as the cause of diseases classified elsewhere B96.89 and Acute pharyngitis due to other specified organisms J02.8 [place] [address] [place] [id number] [place] [address] 68169- 2660 14 May, 2017 Generalized anxiety disorder F41.1 [place] [address] [place] [id number] [place] [address] 73310- 7761 14 May, 2017 Shortness of breath R06.02 ; Moderate episode of recurrent major depressive disorder F33.1 and Anxiety F41.9 [facility] [address] [place] [id number] [place] [address] 09716 -2061 14 Jan, 2017 Folliculitis L73.9 [place] [address] [place] [id number] [place] [address] 11309- 5298 23 May, 2016 control counseling Z30.09 [place] [address], [place] [address]- 6211 15 Nov, 2015 Family planning, BCP ( control pills) maintenance Z30.41 [facility] [address] [place] [id number] [place] [address] 32091- 4639 26 Aug, 2015 [facility] [address] [place] [id number] [place] [address] 18038- 8285 28 Apr, 2015 Encounter for counseling regarding contraception Z30.9 ; Genital herpes, unspecified A60.00 ; OCP (oral contraceptive pills) initiation Z30.011 and Routine screening for STI (sexually transmitted infection) Z11.3 [facility] [address] [place] [id number] [place] [address] 151588- 3555 14 Jul, 2014 [facility] [address] [place] [id number] [place] [address] 58259- 9170 Jul, [facility] [address] [place] [id number] [place] [address] 90591- 0713 Apr, [facility] [address] [place] [address] 96407- 9954 Apr, [facility] [address] [place] [id number] [place] [address] 00796- 1820 Mar, [facility] [address], [place] [address]- 4084 Mar, [facility] [address] [place] [address] 37341- 9007 Jan, [facility] [address], [place] [address]- 4294 Jan, [facility] [address] [place] [id number] [place] [address] 556711- 6228 Sep, [facility] [address], [place] [address]- 8336 Sep, [facility] [address] [place] [address] 52873- 0351 Jul, [facility] [place] [facility] [address] [id number] [place] [address]- 4413 Jul, [facility] [place] [facility] [address] [id number] [place] [address]- 1947 Jun, [facility] [place] [facility] [address] [id number] [place] [address]- 2100 Jun, [facility] [place] [facility] [address] [id number] [place] [address]- 8184 May, [facility] [place] [facility] [address] [id number] [place] [address]- 4000 May, [facility] [place] [facility] [address] [id number] [place] [address]- 5775 May, [facility] [place] [facility] [address] [id number] [place] [address]- 4199 May, [facility] [place] [facility] [address] [id number] [place] [address]- 1160 May, [facility] [place] [facility] [address] [id number] [place] [address]- 2639 May, [facility] [place] [facility] [address] [id number] [place] [address]- 3431 May, [facility] [place] [facility] [address] [id number] [place] [address]- 9131 May, [facility] [place] [facility] [address] [id number] [place] [address]- 0313 May, [facility] [place] [facility] [address] [id number] [place] [address]- 3509 May, [facility] [place] [facility] [address] [id number] [place] [address]- 6804 Apr, [facility] [place] [facility] [address] [id number] [place] [address]- 3038 Apr, [facility] [place] [facility] [address] [id number] [place] [address]- 4586 Apr, [facility] [address] [id number] [place] [address]- 8447 Apr, [facility] [place] [facility] [address] [id number] [place] [address]- 4436 Apr, [facility] [address] [id number] [place] [address]- 1806 Apr, [facility] [place] [facility] [address] [id number] [place] [address]- 3421 Apr, [facility] [address] [id number] [place] [address]- 1162 Apr, [facility] [place] [facility] [address] [id number] [place] [address]- 6922 Apr, [facility] [place] [facility] [address] [id number] [place] [address]- 0145 Apr, [facility] [address] [id number] [place] [address]- 2466 Apr, [facility] [place] [facility] [address] [id number] [place] [address]- 4542 Apr, [facility] [address] [id number] [place] [address]- 8533 Apr, [facility] [place] [facility] [address] [id number] [place] [address]- 5034 Apr, [facility] [place] [facility] [address] [id number] [place] [address]- 0706 Mar, [facility] [place] [facility] [address] [id number] [place] [address]- 3496 Mar, [facility] [place] [facility] [address] [id number] [place] [address]- 2546 Mar, [facility] [place] [facility] [address] [id number] [place] [address]- 2396 Mar, [facility] [address] [facility] [id number] [address]- 0805 Feb, [facility] [address], [place] [address]- 0396 Feb, [facility] [address], [place] [address]- 9618 Feb, [facility] [address], [place] [address] 2546 Feb, [facility] [address] [place] [id number], [place] [address]- 9887 Nov, [facility] [address], [place] [address]- 0464 Sep, IMMUNIZATIONS No Known Immunizations SOCIAL HISTORY Never Assessed REASON FOR VISIT Controlled Med Refill 12/04/17 PLAN OF CARE VITAL SIGNS MEDICATIONS Medication Instructions Dosage Frequency Start Date End Date Duration Status Vyvanse 20 MG Orally Once a day 1 tablet in the morning 24h Nov, 28 days Active RESULTS No Results PROCEDURES No Known procedures INSTRUCTIONS MEDICATIONS ADMINISTERED No Known Medications MEDICAL (GENERAL) HISTORY Type Description Date Medical History genital herpes Medical History depression
--- OUTSIDE RECORDS SUMMARY | 2018-08-07 18:52 | XMS REPORT ---
Author Author OSMEL GARCIA Organization [facility] Address [address] [place] [address] Care Team Providers Care Slasher Tender Name Role Phone RADHA OSMEL Unavailable PROBLEMS Type Condition ICD9-CM Code WEV31-LP Code Onset Dates Condition Status SNOMED Code Problem Depression, major, recurrent, in remission F33.40 Active 10316533 Problem ADD (attention deficit disorder) without hyperactivity F98.8 Active 04604853 Problem Migraine with aura and without status migrainosus, not intractable G43.109 Active 9307448 Problem Genital herpes, unspecified A60.00 Active 23375924 Problem Generalized anxiety disorder F41.1 Active 99188239 Problem Moderate episode of recurrent major depressive disorder F33.1 Active [id number] ALLERGIES No Information ENCOUNTERS Encounter Location Date Diagnosis [place] [address] [place] [address] 83536- 8309 Dec, ADD (attention deficit disorder) without hyperactivity F98.8 [place] [address] [place] [id number] [place] [address] 80277- 7913 Dec, Generalized anxiety disorder F41.1 ; Depression, major, recurrent, in remission F33.40 and ADD (attention deficit disorder) without hyperactivity F98.8 [place] [address] [place] [id number] [place] [address] 16749- 3750 Nov, ADD (attention deficit disorder) without hyperactivity F98.8 [place] [address] [place] [id number] [place] [address] 10356- 0790 Nov, Generalized anxiety disorder F41.1 ; Moderate episode of recurrent major depressive disorder F33.1 and ADD (attention deficit disorder) without hyperactivity F98.8 [place] [address] [place] [address] 11229- 8425 Oct, ADD (attention deficit disorder) without hyperactivity F98.8 [facility] [address] [place] [id number] [address] 5583 Oct, Generalized anxiety disorder F41.1 ; Moderate episode of recurrent major depressive disorder F33.1 and ADD (attention deficit disorder) without hyperactivity F98.8 [facility] [address] [address] 7911 Oct, Generalized anxiety disorder F41.1 ; Moderate episode of recurrent major depressive disorder F33.1 and ADD (attention deficit disorder) without hyperactivity F98.8 [facility] [address] [address]- 6679 Sep, ADD (attention deficit disorder) without hyperactivity F98.8 [facility] [address] [address] 2214 Sep, Generalized anxiety disorder F41.1 ; Moderate episode of recurrent major depressive disorder F33.1 and ADD (attention deficit disorder) without hyperactivity F98.8 [facility] [address] [address] 6494 Sep, ADD (attention deficit disorder) without hyperactivity F98.8 [facility] [address] [address] 5077 August, Generalized anxiety disorder F41.1 ; Moderate episode of recurrent major depressive disorder F33.1 and ADD (attention deficit disorder) without hyperactivity F98.8 [facility] [address] [address] 8740 August, Generalized anxiety disorder F41.1 ; Moderate episode of recurrent major depressive disorder F33.1 and ADD (attention deficit disorder) without hyperactivity F98.8 [facility] [address] [address]- 7102 Jul, ADD (attention deficit disorder) without hyperactivity F98.8 [facility] [address] [place] [id number] [address]- 5518 Jul, ADD (attention deficit disorder) without hyperactivity F98.8 [place] [address] [place] [address] 04706- 3959 05 Jul, 2017 Generalized anxiety disorder F41.1 ; Moderate episode of recurrent major depressive disorder F33.1 and ADD (attention deficit disorder) without hyperactivity F98.8 [place] [address] [place] [id number] [place] [address] 99892- 1452 29 Jun, 2017 Rash R21 [place] [address] 89313- 1245 Jun, Generalized anxiety disorder F41.1 and ADD (attention deficit disorder) without hyperactivity F98.8 [facility] WALK IN [place] [address] 95517 -1897 09 Jun, 2017 Skin lesion L98.9 [place] [address] [place] [id number] [place] [address] 47651- 3288 Jun, Severe persistent reactive airway disease with acute exacerbation J45.51 [place] [address] [place] [id number] [place] [address] 52377- 3766 Jun, Generalized anxiety disorder F41.1 and ADD (attention deficit disorder) without hyperactivity F98.8 [facility] WALK [place] [address] [place] [id number] [place] [address] 61319 -2346 16 May, 2017 Other specified bacterial agents as the cause of diseases classified elsewhere B96.89 and Acute pharyngitis due to other specified organisms J02.8 [place] [address] [place] [id number] [place] [address] 04345- 2134 14 May, 2017 Generalized anxiety disorder F41.1 [place] [address] [place] [id number] [place] [address] 63649- 3490 14 May, 2017 Shortness of breath R06.02 ; Moderate episode of recurrent major depressive disorder F33.1 and Anxiety F41.9 [facility] WALK IN [facility] [address] [id number] [place] [address] 82015 -5231 14 Jan, 2017 Folliculitis L73.9 [place] [address] [place] [id number] [place] [address] 65104- 4332 23 May, 2016 control counseling Z30.09 [facility] [address] [address] [id number] [place] [address] 08670- 5114 15 Nov, 2015 Family planning, BCP ( control pills) maintenance Z30.41 [facility] [address] [place] [id number] [place] [address] 41036- 3637 August, [facility] [address] 33347- 0850 28 Apr, 2015 Encounter for counseling regarding contraception Z30.9 ; Genital herpes, unspecified A60.00 ; OCP (oral contraceptive pills) initiation Z30.011 and Routine screening for STI (sexually transmitted infection) Z11.3 [facility] [address] [place] [id number] [place] [address] 94627- 8001 14 Jul, 2014 [facility] [address] 85232- 1275 Jul, [facility] [address] [place] [id number] [place] [address] 61245- 6333 Apr, [facility] [address] [place] [id number] [place] [address] 72299- 6782 Apr, [facility] [address] [place] [address] [id number] [place] [address] 50065- 2479 Mar, [facility] [address] [place] [id number] [place] [address] 65405- 9741 Mar, [facility] [address] [place] [id number] [place] [address] 89571- 7436 Jan, [facility] [address] [place] [id number] [place] [address] [id number]- 1462 Jan, [facility] [address] [place] [id number] [place] [address] 40609- 4993 Sep, [facility] [address] [address] [id number] [place] [address] 82518- 0149 Sep, [facility] [place] [facility] [address] [id number] [place] [address]- 9636 Jul, [facility] [place] [facility] [address] [id number] [place] [address]- 3981 Jul, [facility] [place] [facility] [address] [facility] [id number] [place] [address]- 0311 Jun, [facility] [place] [facility] [address] [facility] [address] [facility] [id number] [place] [address]- 0886 Jun, [facility] [place] [facility] [address] [id number] [place] [address]- 3050 May, [facility] [place] [facility] [address] [facility] [address] [facility] [id number] [place] [address]- 0338 May, [facility] [place] [facility] [address] [facility] [address] [facility] [id number] [place] [address]- 3167 May, [facility] [place] [facility] [address] [facility] [address] [facility] [id number] [place] [address]- 7544 May, [facility] [place] [facility] [address] [facility] [address] [facility] [id number] [place] [address]- 3787 May, [facility] [place] [facility] [address] [facility] [address] [facility] [id number] [place] [address]- 6186 May, [facility] [place] [facility] [address] [facility] [address] [facility] [id number] [place] [address]- 8499 May, [facility] [place] [facility] [address] [facility] [address] [facility] [id number] [address]- 1353 May, [facility] [place] [facility] [address] [facility] [address] [facility] [id number] [place] [address]- 7666 May, [facility] [place] [facility] [address] [facility] [address] [facility] [id number] [address]- 9940 May, [facility] [place] [facility] [address] [facility] [address] [facility] [id number] [address]- 0884 Apr, [facility] [place] [facility] [address] [id number] [place] [address]- 6107 Apr, [facility] [place] [facility] [address] [id number] [place] [address]- 1364 Apr, [facility] [place] [facility] [address] [id number] [place] [address]- 0667 Apr, [facility] [place] [facility] [address] [id number] [place] [address]- 6118 Apr, [facility] [address] [id number] [place] [address]- 8220 Apr, [facility] [place] [facility] [address] [id number] [place] [address]- 1980 Apr, [facility] [address] [id number] [place] [address]- 9311 Apr, [facility] [address] [id number] [place] [address]- 1396 Apr, [facility] [place] [facility] [address] [id number] [place] [address]- 8335 Apr, [facility] [place] [facility] [address] [id number] [place] [address]- 6677 Apr, [facility] [place] [facility] [address] [id number] [place] [address]- 1327 Apr, [facility] [place] [facility] [address] [id number] [place] [address]- 4982 Apr, [facility] [place] [facility] [address] [id number] [place] [address]- 2348 Apr, [facility] [place] [facility] [address] [id number] [place] [address]- 4402 Mar, [facility] [place] [facility] [address] [id number] [place] [address]- 3813 Mar, [facility] [place] [facility] [address] [id number] [address] 2546 Mar, [facility] [address] [place] [id number] [address]- 2926 Mar, [facility] [address] [place] [id number] [address]- 1876 Feb, [facility] [address] [address] 2546 Feb, [facility] [address] [address]- 8883 Feb, [facility] [address] [address]- 3818 Feb, [facility] [address] [address]- 6706 Nov, [facility] [address] [address]- 2982 Sep, IMMUNIZATIONS No Known Immunizations SOCIAL HISTORY Never Assessed REASON FOR VISIT Follow-up Anxiety PLAN OF CARE VITAL SIGNS MEDICATIONS Unknown Medications RESULTS No Results PROCEDURES Procedure Date Ordered Result Body Site Psychotherapy, patient &/family, 30 minutes, established patient Dec 23, 2017 INSTRUCTIONS MEDICATIONS ADMINISTERED No Known Medications MEDICAL (GENERAL) HISTORY Type Description Date Medical History genital herpes Medical History depression
--- OUTSIDE RECORDS SUMMARY | 2018-08-07 18:52 | XMS REPORT ---
Author Author FARIDA DE LUNA [facility] Address [address] [place] [address] Care Team Providers Care Product Coordinator Name Role Phone FARIDA DE LUNA Unavailable PROBLEMS ALLERGIES No Information ENCOUNTERS IMMUNIZATIONS No Known Immunizations SOCIAL HISTORY No smoking Hx information available REASON FOR VISIT PLAN OF CARE VITAL SIGNS MEDICATIONS RESULTS No Results PROCEDURES No Known procedures INSTRUCTIONS MEDICATIONS ADMINISTERED No Known Medications MEDICAL (GENERAL) HISTORY
--- OUTSIDE RECORDS SUMMARY | 2018-08-07 18:53 | XMS REPORT ---
Author Author OSMEL GARCIA Organization [facility] Address [address] [place] [address] Care Team Providers Care Shirring Machine Operator Name Role Phone RADHAHEYDIOSMEL Unavailable PROBLEMS Type Condition ICD9-CM Code UAD78-MT Code Onset Dates Condition Status SNOMED Code Problem ADD (attention deficit disorder) without hyperactivity F98.8 Active 66414736 Problem Generalized anxiety disorder F41.1 Active 28476211 Problem Genital herpes, unspecified A60.00 Active 38676888 Problem Moderate episode of recurrent major depressive disorder F33.1 Active 557384187 Problem Migraine with aura and without status migrainosus, not intractable G43.109 Active 1316604 ALLERGIES No Information ENCOUNTERS Encounter Location Date Diagnosis [place] [address] [place] [id number] [place] [address] 26034- 8143 Dec, [place] [address] 13716- 8436 Nov, ADD (attention deficit disorder) without hyperactivity F98.8 [place] [address] [place] [id number] [place] [address] 96050- 6567 Nov, Generalized anxiety disorder F41.1 ; Moderate episode of recurrent major depressive disorder F33.1 and ADD (attention deficit disorder) without hyperactivity F98.8 [place] [address] [place] [id number] [place] [address] 24602- 1918 Oct, ADD (attention deficit disorder) without hyperactivity F98.8 [place] [address] 10674- 7721 Oct, Generalized anxiety disorder F41.1 ; Moderate episode of recurrent major depressive disorder F33.1 and ADD (attention deficit disorder) without hyperactivity F98.8 [place] [address] 84938- 3480 Oct, Generalized anxiety disorder F41.1 ; Moderate episode of recurrent major depressive disorder F33.1 and ADD (attention deficit disorder) without hyperactivity F98.8 [facility] [address], [place] [address]- 8640 Sep, ADD (attention deficit disorder) without hyperactivity F98.8 [facility] [address] [place] [id number] [place] [address] 04463- 1067 Sep, Generalized anxiety disorder F41.1 ; Moderate episode of recurrent major depressive disorder F33.1 and ADD (attention deficit disorder) without hyperactivity F98.8 [place] [address] [place] [id number] [place] [address] 05177- 6662 Sep, ADD (attention deficit disorder) without hyperactivity F98.8 [place] [address] [place] [id number] [place] [address] 37708- 3464 August, Generalized anxiety disorder F41.1 ; Moderate episode of recurrent major depressive disorder F33.1 and ADD (attention deficit disorder) without hyperactivity F98.8 [place] [address], [place] [address]- 1520 August, Generalized anxiety disorder F41.1 ; Moderate episode of recurrent major depressive disorder F33.1 and ADD (attention deficit disorder) without hyperactivity F98.8 [facility] [address], [place] [address]- 7699 Jul, ADD (attention deficit disorder) without hyperactivity F98.8 [facility] [address], [place] [address]- 7600 Jul, ADD (attention deficit disorder) without hyperactivity F98.8 [facility] [address], [place] [address]- 2281 Jul, Generalized anxiety disorder F41.1 ; Moderate episode of recurrent major depressive disorder F33.1 and ADD (attention deficit disorder) without hyperactivity F98.8 [facility] [address], [place] [address]- 8810 Jun, Rash R21 [place] [address] [place] [id number] [place] [address] 04633- 6395 19 Jun, 2017 Generalized anxiety disorder F41.1 and ADD (attention deficit disorder) without hyperactivity F98.8 [facility] WALK IN [facility] [address] [place] [id number] [place] [address] 42018 -4523 09 Jun, 2017 Skin lesion L98.9 [place] [address] 52457- 3446 07 Jun, 2017 Severe persistent reactive airway disease with acute exacerbation J45.51 [place] [address] 86864- 5646 Jun, Generalized anxiety disorder F41.1 and ADD (attention deficit disorder) without hyperactivity F98.8 [facility] [place] [address] 52448 -6959 16 May, 2017 Other specified bacterial agents as the cause of diseases classified elsewhere B96.89 and Acute pharyngitis due to other specified organisms J02.8 [place] [address] [place] [id number] [place] [address] 77082- 5169 14 May, 2017 Generalized anxiety disorder F41.1 [place] [address] [place] [id number] [place] [address] 16968- 3420 14 May, 2017 Shortness of breath R06.02 ; Moderate episode of recurrent major depressive disorder F33.1 and Anxiety F41.9 [facility] IN [facility] [address] [place] [id number] [place] [address] 31583 -5624 14 Jan, 2017 Folliculitis L73.9 [place] [address] 56504- 0881 23 May, 2016 control counseling Z30.09 [place] [address] 20259- 6227 15 Nov, 2015 Family planning, BCP ( control pills) maintenance Z30.41 [place] [address] [place] [address]- 9[address] August, [facility] [address], [place] [address]- 2010 Apr, Encounter for counseling regarding contraception Z30.9 ; Genital herpes, unspecified A60.00 ; OCP (oral contraceptive pills) initiation Z30.011 and Routine screening for STI (sexually transmitted infection) Z11.3 [facility] [address] [place] [id number] [place] [address] 89564- 8632 14 Jul, 2014 [facility] [address] [place] [id number] [place] [address] 63453- 1815 Jul, [facility] [id number] [place] [address] 40148- 9457 Apr, [facility] [address] [place] [id number] [place] [address] 36288- 4116 Apr, [facility] [address] [place] [id number] [place] [address] 47799- 9395 Mar, [facility] [address] [address]- 2063 Mar, [facility] [id number] [place] [address] 75739- 9356 Jan, [facility] [address], [place] [address]- 3797 Jan, [facility] [address], [place] [address]- 4369 Sep, [facility] [address], [place] [address]- 3215 Sep, [facility] [address] [id number] [place] [address] 58269- 2062 Jul, [facility] [address], [place] [address]- 9322 Jul, [facility] [address] [place] [id number] [place] [address] 95847- 7355 Jun, [facility] [place] [facility] [address] [id number] [place] [address]- 5325 Jun, [facility] [place] [facility] [address] [id number] [place] [address]- 1902 May, [facility] [place] [facility] [address] [facility] [id number] [place] [address]- 0756 May, [facility] [place] [facility] [address] [id number] [place] [address]- 1011 May, [facility] [place] [facility] [address] [id number] [place] [address]- 7617 May, [facility] [place] [facility] [address] [id number] [place] [address]- 5914 May, [facility] [place] [facility] [address] [facility] [id number] [place] [address]- 1103 May, [facility] [place] [facility] [address] [facility] [id number] [place] [address]- 7532 May, [facility] [place] [facility] [address] [facility] [id number] [place] [address]- 4860 May, [facility] [place] [facility] [address] [facility] [id number] [place] [address]- 2418 May, [facility] [place] [facility] [address] [facility] [id number] [place] [address]- 9581 May, [facility] [place] [facility] [address] [facility] [id number] [place] [address]- 3155 Apr, [facility] [place] [facility] [address] [id number] [place] [address]- 5656 Apr, [facility] [place] [facility] [address] [facility] [id number] [place] [address]- 5841 Apr, [facility] [place] [facility] [address] [facility] [id number] [place] [address]- 1378 Apr, [facility] [place] [facility] [address] [id number] [place] [address]- 9198 Apr, [facility] [place] [facility] [address] [id number] [place] [address]- 8621 Apr, [facility] [place] [facility] [address] [id number] [place] [address]- 6530 Apr, [facility] [place] [facility] [address] [id number] [place] [address]- 7496 Apr, [facility] [place] [facility] [address] [id number] [place] [address]- 6575 Apr, [facility] [place] [facility] [address] [id number] [place] [address]- 8961 Apr, [facility] [place] [facility] [address] [id number] [place] [address]- 8100 Apr, [facility] [place] [facility] [address] [id number] [place] [address]- 5983 Apr, [facility] [place] [facility] [address] [id number] [place] [address]- 8307 Apr, [facility] [place] [facility] [address] [id number] [place] [address]- 9026 Apr, [facility] [place] [facility] [address] [id number] [place] [address]- 8512 Mar, [facility] [place] [facility] [address] [id number] [address]- 1644 Mar, [facility] [place] [facility] [address] [id number] [place] [address]- 9282 Mar, [facility] [place] [facility] [address] [id number] [place] [address] Mar, [facility] [place] [facility] [address] [id number] [place] [address] Feb, [facility] [place] [facility] [address] [id number], [place] [address] Feb, [facility] [address] [facility] [id number] [address] Feb, [facility] [address] [facility] [id number], [place] [address] Feb, [facility] [address] [facility] [id number], [place] [address] Nov, [facility] [address] [facility] [id number], [place] [address] Sep, IMMUNIZATIONS No Known Immunizations SOCIAL HISTORY Never Assessed REASON FOR VISIT Follow-up Anxiety PLAN OF CARE Activity Details Follow Up 2 Weeks Reason: Follow-up VITAL SIGNS MEDICATIONS Unknown Medications RESULTS No Results PROCEDURES Procedure Date Ordered Result Body Site Psychotherapy, patient &/family, 45 minutes, established patient October 24, 2017 INSTRUCTIONS MEDICATIONS ADMINISTERED No Known Medications MEDICAL (GENERAL) HISTORY Type Description Date Medical History genital herpes Medical History depression
--- OUTSIDE RECORDS SUMMARY | 2018-08-07 18:53 | XMS REPORT ---
Author Author OSMEL GARCIA Organization [facility] Address [address] [place] [address] Care Team Providers Care Access Registrar Name Role Phone RADHAHEYDIOSMEL Unavailable PROBLEMS Type Condition ICD9-CM Code [id number] Code Onset Dates Condition Status SNOMED Code Problem ADD (attention deficit disorder) without hyperactivity F98.8 Active 48337197 Problem Generalized anxiety disorder F41.1 Active 23074042 Problem Genital herpes, unspecified A60.00 Active 25442119 Problem Moderate episode of recurrent major depressive disorder F33.1 Active 529839784 Problem Migraine with aura and without status migrainosus, not intractable G43.109 Active 8968696 ALLERGIES No Information ENCOUNTERS Encounter Location Date Diagnosis [place] [address] [address] [id number] [place] [address] 76214- 8069 Dec, [place] [address] [address] [id number] [place] [address] 76676- 6917 Dec, [place] [address] [address] [id number] [place] [address] 25540- 6104 Nov, ADD (attention deficit disorder) without hyperactivity F98.8 [place] [address] [id number] [place] [address] 58854- 6134 Nov, Generalized anxiety disorder F41.1 ; Moderate episode of recurrent major depressive disorder F33.1 and ADD (attention deficit disorder) without hyperactivity F98.8 [place] [address] [id number] [place] [address] 38221- 3235 Oct, ADD (attention deficit disorder) without hyperactivity F98.8 [place] [address] [address] [id number] [place] [address] 15369- 4724 Oct, Generalized anxiety disorder F41.1 ; Moderate episode of recurrent major depressive disorder F33.1 and ADD (attention deficit disorder) without hyperactivity F98.8 [facility] [address] [address] 3[address] Oct, Generalized anxiety disorder F41.1 ; Moderate episode of recurrent major depressive disorder F33.1 and ADD (attention deficit disorder) without hyperactivity F98.8 [facility] [address] [address] 6974 Sep, ADD (attention deficit disorder) without hyperactivity F98.8 [facility] [id number] [address] 8080 Sep, Generalized anxiety disorder F41.1 ; Moderate episode of recurrent major depressive disorder F33.1 and ADD (attention deficit disorder) without hyperactivity F98.8 [facility] [address] [address]- 9837 Sep, ADD (attention deficit disorder) without hyperactivity F98.8 [place] [address] [address] 6120 August, Generalized anxiety disorder F41.1 ; Moderate episode of recurrent major depressive disorder F33.1 and ADD (attention deficit disorder) without hyperactivity F98.8 [place] [address] [address] 50[address] August, Generalized anxiety disorder F41.1 ; Moderate episode of recurrent major depressive disorder F33.1 and ADD (attention deficit disorder) without hyperactivity F98.8 [place] [address] [address]- 9140 Jul, ADD (attention deficit disorder) without hyperactivity F98.8 [place] [address] [address]- 4314 Jul, ADD (attention deficit disorder) without hyperactivity F98.8 [facility] [address], [place] [address]- 7615 Jul, Generalized anxiety disorder F41.1 ; Moderate episode of recurrent major depressive disorder F33.1 and ADD (attention deficit disorder) without hyperactivity F98.8 [place] [id number] [place] [address] 78373- 6044 Jun, Rash R21 [place] [id number] [place] [address] 48874- 4326 Jun, Generalized anxiety disorder F41.1 and ADD (attention deficit disorder) without hyperactivity F98.8 [facility]ALK IN [place] [address] 65675 -0008 09 Jun, 2017 Skin lesion L98.9 [place] [address] 23695- 0094 07 Jun, 2017 Severe persistent reactive airway disease with acute exacerbation J45.51 [place] [id number] [place] [address] 96116- 9703 Jun, Generalized anxiety disorder F41.1 and ADD (attention deficit disorder) without hyperactivity F98.8 [facility] IN [place] [id number] [place] [address] 97188 -7692 16 May, 2017 Other specified bacterial agents as the cause of diseases classified elsewhere B96.89 and Acute pharyngitis due to other specified organisms J02.8 [place] [id number] [place] [address] 51395- 2160 14 May, 2017 Generalized anxiety disorder F41.1 [place] [id number] [place] [address] 57187- 5367 14 May, 2017 Shortness of breath R06.02 ; Moderate episode of recurrent major depressive disorder F33.1 and Anxiety F41.9 [facility] [place] [id number] [place] [address] 05096 -3543 14 Jan, 2017 Folliculitis L73.9 [place] [address] [id number] [place] [address] 10897- 2291 23 May, 2016 control counseling Z30.09 [place] [address] 65725- 6817 15 Nov, 2015 Family planning, BCP ( control pills) maintenance Z30.41 [facility] [id number] [place] [address] 97718- 3000 August, [facility] [id number] [place] [address] 34835- 1587 Apr, Encounter for counseling regarding contraception Z30.9 ; Genital herpes, unspecified A60.00 ; OCP (oral contraceptive pills) initiation Z30.011 and Routine screening for STI (sexually transmitted infection) Z11.3 [facility] [id number] [place] [address] 17216- 9654 14 Jul, 2014 [facility] [id number] [place] [address] 64688- 2570 Jul, [facility] [id number] [place] [address] 42348- 8967 Apr, [facility] [id number] [place] [address] 50322- 2729 Apr, [facility] [id number] [place] [address] 97194- 2053 Mar, [facility] [id number] [place] [address] 88033- 9890 Mar, [facility] [id number] [place] [address] 54484- 6775 Jan, [facility] [id number] [place] [address] 72565- 7621 Jan, [facility] [id number] [place] [address] 32691- 3867 Sep, [facility] [id number] [place] [address] 79849- 2700 Sep, [facility] [id number] [place] [address] 26519- 1220 Jul, [facility] [id number] [place] [address] 30440- 6421 Jul, [facility] [place] [facility] [address] [id number] [place] [address]- 5516 Jun, [facility] [place] [facility] [address] [id number] [place] 6736 Jun, [facility] [place] [facility] [address] [facility] [id number] [place] [address]- 4058 May, [facility] [place] [facility] [address] [id number] [place] [address]- 4091 May, [facility] [place] [facility] [address] [id number] [place] [address]- 4379 May, [facility] [place] [facility] [address] [id number] [place] [address]- 2889 May, [facility] [place] [facility] [address] [facility] [id number] [place] [address]- 9597 May, [facility] [place] [facility] [address] [facility] [id number] [place] [address]- 2950 May, [facility] [place] [facility] [address] [facility] [id number] [place] [address]- 3190 May, [facility] [place] [facility] [address] [facility] [id number] [place] [address]- 3792 May, [facility] [place] [facility] [address] [facility] [id number] [place] [address]- 4888 May, [facility] [place] [facility] [address] [facility] [id number] [place] [address]- 3065 May, [facility] [place] [facility] [address] [id number] [place] [address]- 8116 Apr, [facility] [place] [facility] [address] [facility] [id number] [place] [address]- 0403 Apr, [facility] [place] [facility] [address] [facility] [id number] [place] [address]- 5675 Apr, [facility] [place] [facility] [address] [id number] [place] [address]- 3847 Apr, [facility] [place] [facility] [address] [id number] [place] [address]- 9290 Apr, [facility] [place] [facility] [address] [id number] [place] [address]- 8749 Apr, [facility] [place] [facility] [address] [id number] [place] [address]- 2373 Apr, [facility] [place] [facility] [address] [id number] [place] [address]- 7270 Apr, [facility] [place] [facility] [address] [id number] [place] [address]- 9627 Apr, [facility] [place] [facility] [address] [id number] [place] [address]- 7706 Apr, [facility] [place] [facility] [address] [id number] [place] [address]- 0855 Apr, [facility] [place] [facility] [address] [id number] [place] [address]- 9267 Apr, [facility] [place] [facility] [address] [id number] [place] [address]- 8035 Apr, [facility] [place] [facility] [address] [id number] [place] [address]- 7565 Apr, [facility] [place] [facility] [address] [id number] [address]- 3714 Mar, [facility] [place] [facility] [address] [id number] [place] [address]- 3052 Mar, [facility] [place] [facility] [address] [id number] [place] [address]- 9295 Mar, [facility] [place] [facility] [address] [id number] [place] [address]- 0054 Mar, [facility] [place] [facility] [address] [id number] [address]- 2546 Feb, [facility] [address] [facility] [id number], [place] [address] 2546 Feb, [facility] [address], [place] [address] 2546 Feb, [facility] [address] [facility] [id number], [place] [address]- 2546 Feb, [facility] [address] [facility] [id number] [address] 2546 Nov, [facility] [address] [facility] [id number] [address]- 9716 Sep, IMMUNIZATIONS No Known Immunizations SOCIAL HISTORY Never Assessed REASON FOR VISIT Follow-up Anxiety PLAN OF CARE Activity Details Follow Up 2 Weeks Reason: Follow-up VITAL SIGNS MEDICATIONS Unknown Medications RESULTS No Results PROCEDURES Procedure Date Ordered Result Body Site Psychotherapy, patient &/family, 45 minutes, established patient October 08, 2017 INSTRUCTIONS MEDICATIONS ADMINISTERED No Known Medications MEDICAL (GENERAL) HISTORY Type Description Date Medical History genital herpes Medical History depression
--- OUTSIDE RECORDS SUMMARY | 2018-08-07 18:53 | XMS REPORT ---
Author Author FARIDA DE LUNA Organization [facility] Address [address] [place] [address] Care Team Providers Care Maintenance Clerk Name Role Phone FARIDA DE LUNA Unavailable PROBLEMS Type Condition ICD9-CM Code SUB65-QQ Code Onset Dates Condition Status SNOMED Code Problem ADD (attention deficit disorder) without hyperactivity F98.8 Active 17162538 Problem Generalized anxiety disorder F41.1 Active 94158394 Problem Genital herpes, unspecified A60.00 Active 23221123 Problem Moderate episode of recurrent major depressive disorder F33.1 Active 476214460 Problem Migraine with aura and without status migrainosus, not intractable G43.109 Active 5691002 ALLERGIES Substance Reaction Event Type Date Status Penicillin V Potassium rash Drug Allergy Sep, Active ENCOUNTERS Encounter Location Date Diagnosis [place] [address] [address] [id number] [place] [address] 10778- 5891 Dec, [place] [address] [place] [id number] [place] [address] 22149- 5892 Dec, [place] [address] [place] [address] [id number] [place] [address] 59232- 7765 Nov, ADD (attention deficit disorder) without hyperactivity F98.8 [place] [address] [place] [address] [id number] [place] [address] 57201- 9304 Nov, Generalized anxiety disorder F41.1 ; Moderate episode of recurrent major depressive disorder F33.1 and ADD (attention deficit disorder) without hyperactivity F98.8 [place] [address] [address] [id number] [place] [address] 43991- 9764 Oct, ADD (attention deficit disorder) without hyperactivity F98.8 [place] [address] [place] [address] [id number] [place] [address] 45067- 6899 Oct, Generalized anxiety disorder F41.1 ; Moderate episode of recurrent major depressive disorder F33.1 and ADD (attention deficit disorder) without hyperactivity F98.8 [facility] [address], [place] [address]- 8312 Oct, Generalized anxiety disorder F41.1 ; Moderate episode of recurrent major depressive disorder F33.1 and ADD (attention deficit disorder) without hyperactivity F98.8 [facility] [address] [place] [id number] [place] [address] 55041- 3520 Sep, ADD (attention deficit disorder) without hyperactivity F98.8 [facility] [address] [id number], [place] [address]- 7362 Sep, Generalized anxiety disorder F41.1 ; Moderate episode of recurrent major depressive disorder F33.1 and ADD (attention deficit disorder) without hyperactivity F98.8 [place] [address] [place] [id number], [place] [address]- 5400 Sep, ADD (attention deficit disorder) without hyperactivity F98.8 [facility] [id number], [place] [address]- 2768 August, Generalized anxiety disorder F41.1 ; Moderate episode of recurrent major depressive disorder F33.1 and ADD (attention deficit disorder) without hyperactivity F98.8 [facility] [address], [place] [address]- 7469 August, Generalized anxiety disorder F41.1 ; Moderate episode of recurrent major depressive disorder F33.1 and ADD (attention deficit disorder) without hyperactivity F98.8 [facility] [address], [place] [address]- 8683 Jul, ADD (attention deficit disorder) without hyperactivity F98.8 [facility] [address], [place] [address]- 4503 Jul, ADD (attention deficit disorder) without hyperactivity F98.8 [facility] [address] [place] [id number], [place] [address]- 3624 Jul, Generalized anxiety disorder F41.1 ; Moderate episode of recurrent major depressive disorder F33.1 and ADD (attention deficit disorder) without hyperactivity F98.8 [place] [address] [place] [id number] [place] [address] 86883- 1389 29 Jun, 2017 Rash R21 [place] [address] [place] [id number] [place] [address] 71998- 5140 Jun, Generalized anxiety disorder F41.1 and ADD (attention deficit disorder) without hyperactivity F98.8 [facility] [address] [place] [address] [id number] [place] [address] 25495 -6786 09 Jun, 2017 Skin lesion L98.9 [place] [address] 77863- 8495 07 Jun, 2017 Severe persistent reactive airway disease with acute exacerbation J45.51 [place] [address] [place] [id number] [place] [address] 68824- 1325 Jun, Generalized anxiety disorder F41.1 and ADD (attention deficit disorder) without hyperactivity F98.8 [facility] WALK IN [facility] [address] [place] [id number] [place] [address] 88585 -1036 16 May, 2017 Other specified bacterial agents as the cause of diseases classified elsewhere B96.89 and Acute pharyngitis due to other specified organisms J02.8 [place] [address] [place] [id number] [place] [address] 24380- 9979 14 May, 2017 Generalized anxiety disorder F41.1 [place] [address] [place] [id number] [place] [address] 73763- 8184 14 May, 2017 Shortness of breath R06.02 ; Moderate episode of recurrent major depressive disorder F33.1 and Anxiety F41.9 [facility] WALK IN [facility] [address] [place] [id number] [place] [address] 63122 -7899 14 Jan, 2017 Folliculitis L73.9 [place] [address] [place] [id number] [place] [address] 55777- 9318 23 May, 2016 control counseling Z30.09 [place] [address], [place] [address]- 3213 15 Nov, 2015 Family planning, BCP ( control pills) maintenance Z30.41 [facility] [address] [place] [address] [id number] [place] [address] 29222- 2654 August, [facility] [address] [id number] [place] [address] 08172- 6072 28 Apr, 2015 Encounter for counseling regarding contraception Z30.9 ; Genital herpes, unspecified A60.00 ; OCP (oral contraceptive pills) initiation Z30.011 and Routine screening for STI (sexually transmitted infection) Z11.3 [facility] [address] [place] [id number] [place] [address] 84511- 6074 14 Jul, 2014 [facility] [address] [place] [address] [id number] [place] [address] 07387- 0366 Jul, [facility] [address] [place] [address] [id number] [place] [address] 13552- 9687 Apr, [facility] [address] [place] [address] 66554- 4560 Apr, [facility] [address] [place] [address] [id number] [place] [address] 16629- 5088 Mar, [facility] [address], [place] [address]- 5103 Mar, [facility] [address], [place] [address]- 7476 Jan, [facility] [address], [place] [address]- 4431 Jan, [facility] [id number] [place] [address] 58998- 5216 Sep, [facility] [address], [place] [address]- 9861 Sep, [facility] [address], [place] [address]- 1475 Jul, [facility] [place] [facility] [address] [id number] [place] [address]- 4384 Jul, [facility] [place] [facility] [address] [id number] [place] [address]- 8911 Jun, [facility] [place] [facility] [address] [id number] [place] [address]- 2205 Jun, [facility] [place] [facility] [address] [id number] [place] [address]- 0207 May, [facility] [place] [facility] [address] [id number] [place] [address]- 8203 May, [facility] [place] [facility] [address] [id number] [place] [address]- 4152 May, [facility] [place] [facility] [address] [id number] [place] [address]- 1861 May, [facility] [place] [facility] [address] [id number] [place] [address]- 7922 May, [facility] [place] [facility] [address] [id number] [place] [address]- 7980 May, [facility] [place] [facility] [address] [id number] [place] [address]- 9666 May, [facility] [place] [facility] [address] [id number] [place] [address]- 6353 May, [facility] [place] [facility] [address] [id number] [place] [address]- 6152 May, [facility] [place] [facility] [address] [id number] [place] [address]- 2243 May, [facility] [place] [facility] [address] [id number] [place] [address]- 3871 Apr, [facility] [place] [facility] [address] [id number] [place] [address]- 3418 Apr, [facility] [place] [facility] [address] [id number] [place] [address]- 2095 Apr, [facility] [address] [id number] [place] [address]- 1023 Apr, [facility] [address] [id number] [place] [address]- 0349 Apr, [facility] [address] [id number] [place] [address]- 5888 Apr, [facility] [address] [id number] [place] [address]- 7745 Apr, [facility] [address] [id number] [place] [address]- 7891 Apr, [facility] [address] [id number] [place] [address]- 0003 Apr, [facility] [address] [id number] [place] [address]- 8873 Apr, [facility] [address] [id number] [place] [address]- 7760 Apr, [facility] [address] [id number] [place] [address]- 1159 Apr, [facility] [address] [id number] [place] [address]- 4022 Apr, [facility] [address] [id number] [place] [address]- 7217 Apr, [facility] [address] [id number] [place] [address]- 2277 Mar, [facility] [place] [facility] [address] [id number] [place] [address]- 5010 Mar, [facility] [address] [id number] [place] [address]- 9626 Mar, [facility] [address] [id number] [place] [address]- 8862 Mar, [facility] [address] [facility] [id number], [place] [address]- 3776 Feb, [facility] [address] [facility] [id number], [place] [address]- 9066 Feb, [facility] [address] [facility] [id number], [place] [address]- 0646 Feb, [facility] [address] [id number], [place] [address]- 2546 Feb, [facility] [address] [facility] [id number], [place] [address]- 9096 Nov, [facility] [id number], [place] [address]- 9196 Sep, IMMUNIZATIONS No Known Immunizations SOCIAL HISTORY Never Assessed REASON FOR VISIT Anxiety-Jordon MARVIN, ADD f/u (Vyvanse refill due) PLAN OF CARE Activity Details Follow Up FU for ADD Reason: VITAL SIGNS Height 67 in 2017-09-09 Weight 155.6 lbs 2017-09-09 Temperature 98.2 degrees Fahrenheit 2017-09-09 Heart Rate 74 bpm 2017-09-09 Respiratory Rate 20 2017-09-09 BMI 24.37 kg/m2 2017-09-09 Blood pressure systolic 116 mmHg 2017-09-09 Blood pressure diastolic 78 mmHg 2017-09-09 MEDICATIONS Medication Instructions Dosage Frequency Start Date End Date Duration Status Vyvanse 20 MG Orally Once a day 1 tablet in the morning 24h Sep, 28 days Active Singulair 10 MG Orally Once a day 1 tablet in the evening 24h Active Lisdexamfetamine Dimesylate 20 MG Orally Once a day 1 capsule in the morning 24h Jul, 28 days Active Triamcinolone Acetonide 0.1 % Externally Twice a day 1 application to affected area 12h Jun, 14 days Not-Taking RESULTS No Results PROCEDURES Procedure Date Ordered Result Body Site 09 PANEL (PROFILE 1) September 09, 2017 INSTRUCTIONS MEDICATIONS ADMINISTERED No Known Medications MEDICAL (GENERAL) HISTORY Type Description Date Medical History genital herpes Medical History depression
--- OUTSIDE RECORDS SUMMARY | 2018-08-07 18:53 | XMS REPORT ---
Author Author OSMEL GARCIA Organization [facility] Address [address] [place] [address] Care Team Providers Care Field Research Assistant Name Role Phone RADHAHEYDIOSMEL Unavailable PROBLEMS Type Condition ICD9-CM Code DQA10-EF Code Onset Dates Condition Status SNOMED Code Problem ADD (attention deficit disorder) without hyperactivity F98.8 Active 48255344 Problem Generalized anxiety disorder F41.1 Active 32861149 Problem Genital herpes, unspecified A60.00 Active 95421125 Problem Moderate episode of recurrent major depressive disorder F33.1 Active 170995851 Problem Migraine with aura and without status migrainosus, not intractable G43.109 Active 3057483 ALLERGIES No Information ENCOUNTERS Encounter Location Date Diagnosis [place] [address] [place] [id number] [place] [address] 38524- 1577 Dec, [place] [address] [place] [id number] [place] [address] 69322- 0470 Dec, [place] [address] [place] [id number] [place] [address] 63014- 4645 Nov, ADD (attention deficit disorder) without hyperactivity F98.8 [place] [address] [place] [id number] [place] [address] 93691- 2919 Nov, Generalized anxiety disorder F41.1 ; Moderate episode of recurrent major depressive disorder F33.1 and ADD (attention deficit disorder) without hyperactivity F98.8 [place] [address] [id number] [place] [address] 18111- 7508 Oct, ADD (attention deficit disorder) without hyperactivity F98.8 [place] [address] [place] [id number] [place] [address] 35110- 5312 Oct, Generalized anxiety disorder F41.1 ; Moderate episode of recurrent major depressive disorder F33.1 and ADD (attention deficit disorder) without hyperactivity F98.8 [facility] [address] [address] 8550 Oct, Generalized anxiety disorder F41.1 ; Moderate episode of recurrent major depressive disorder F33.1 and ADD (attention deficit disorder) without hyperactivity F98.8 [facility] [address] [address] 8372 Sep, ADD (attention deficit disorder) without hyperactivity F98.8 [facility] [id number] [address]- 9186 Sep, Generalized anxiety disorder F41.1 ; Moderate episode of recurrent major depressive disorder F33.1 and ADD (attention deficit disorder) without hyperactivity F98.8 [facility] [address] [address]- 6330 Sep, ADD (attention deficit disorder) without hyperactivity F98.8 [place] [address] [address]- 1545 August, Generalized anxiety disorder F41.1 ; Moderate episode of recurrent major depressive disorder F33.1 and ADD (attention deficit disorder) without hyperactivity F98.8 [place] [address] [address] 2111 August, Generalized anxiety disorder F41.1 ; Moderate episode of recurrent major depressive disorder F33.1 and ADD (attention deficit disorder) without hyperactivity F98.8 [place] [address] [address]- 8815 Jul, ADD (attention deficit disorder) without hyperactivity F98.8 [place] [address] [address]- 4953 Jul, ADD (attention deficit disorder) without hyperactivity F98.8 [facility] [address] [address]- 9704 Jul, Generalized anxiety disorder F41.1 ; Moderate episode of recurrent major depressive disorder F33.1 and ADD (attention deficit disorder) without hyperactivity F98.8 [place] [address] [place] [address] 85709- 9114 Jun, Rash R21 [place] [address] [id number] [place] [address] 44532- 0446 Jun, Generalized anxiety disorder F41.1 and ADD (attention deficit disorder) without hyperactivity F98.8 [facility] [place] [address] 60367 -9945 09 Jun, 2017 Skin lesion L98.9 [place] [address] 24609- 6980 07 Jun, 2017 Severe persistent reactive airway disease with acute exacerbation J45.51 [place] [address] [id number] [place] [address] 75068- 1253 Jun, Generalized anxiety disorder F41.1 and ADD (attention deficit disorder) without hyperactivity F98.8 [facility] [place] [address] [id number] [place] [address] 02947 -8531 16 May, 2017 Other specified bacterial agents as the cause of diseases classified elsewhere B96.89 and Acute pharyngitis due to other specified organisms J02.8 [place] [address] [id number] [place] [address] 50691- 9065 14 May, 2017 Generalized anxiety disorder F41.1 [place] [address] [address] [id number] [place] [address] 14636- 7152 14 May, 2017 Shortness of breath R06.02 ; Moderate episode of recurrent major depressive disorder F33.1 and Anxiety F41.9 [facility] [place] [address] [id number] [place] [address] 74178 -5261 14 Jan, 2017 Folliculitis L73.9 [place] [address] [id number] [place] [address] 25899- 1443 23 May, 2016 control counseling Z30.09 [place] [address] 62703- 5091 15 Nov, 2015 Family planning, BCP ( control pills) maintenance Z30.41 [facility] [id number] [place] [address] 70724- 7100 August, [facility] [id number] [place] [address] 72141- 5971 Apr, Encounter for counseling regarding contraception Z30.9 ; Genital herpes, unspecified A60.00 ; OCP (oral contraceptive pills) initiation Z30.011 and Routine screening for STI (sexually transmitted infection) Z11.3 [facility] [id number] [place] [address] 20779- 8499 14 Jul, 2014 [facility] [id number] [place] [address] 72008- 3094 Jul, [facility] [id number] [place] [address] 14168- 5906 Apr, [facility] [id number] [place] [address] 49609- 0533 Apr, [facility] [id number] [place] [address] 04280- 5862 Mar, [facility] [id number] [place] [address] 84056- 8249 Mar, [facility] [id number] [place] [address] 46949- 6982 Jan, [facility] [id number] [place] [address] 01464- 0541 Jan, [facility] [address] [place] [address] 93547- 0062 Sep, [facility] [id number] [place] [address] 35606- 0008 Sep, [facility] [id number] [place] [address] 65876- 9566 Jul, [facility] [id number] [place] [address] 82192- 2563 Jul, [facility] [place] [facility] [address] [id number] [place] [address]- 4426 Jun, [facility] [place] [facility] [address] [id number] [place] 1386 Jun, [facility] [place] [facility] [address] [facility] [id number] [place] [address]- 2181 May, [facility] [place] [facility] [address] [id number] [place] [address]- 5866 May, [facility] [place] [facility] [address] [id number] [place] [address]- 9185 May, [facility] [place] [facility] [address] [id number] [place] [address]- 1915 May, [facility] [place] [facility] [address] [facility] [id number] [place] [address]- 3134 May, [facility] [place] [facility] [address] [facility] [id number] [place] [address]- 0010 May, [facility] [place] [facility] [address] [facility] [id number] [place] [address]- 6575 May, [facility] [place] [facility] [address] [facility] [id number] [place] [address]- 6703 May, [facility] [place] [facility] [address] [facility] [id number] [place] [address]- 7488 May, [facility] [place] [facility] [address] [facility] [id number] [place] [address]- 1317 May, [facility] [place] [facility] [address] [id number] [place] [address]- 4885 Apr, [facility] [place] [facility] [address] [facility] [id number] [place] [address]- 4940 Apr, [facility] [place] [facility] [address] [facility] [id number] [place] [address]- 4145 Apr, [facility] [place] [facility] [address] [id number] [place] [address]- 7261 Apr, [facility] [place] [facility] [address] [id number] [place] [address]- 9531 Apr, [facility] [place] [facility] [address] [id number] [place] [address]- 5646 Apr, [facility] [place] [facility] [address] [id number] [place] [address]- 8374 Apr, [facility] [place] [facility] [address] [id number] [place] [address]- 2466 Apr, [facility] [place] [facility] [address] [id number] [place] [address]- 1091 Apr, [facility] [place] [facility] [address] [id number] [place] [address]- 8668 Apr, [facility] [place] [facility] [address] [id number] [place] [address]- 5111 Apr, [facility] [place] [facility] [address] [id number] [place] [address]- 3943 Apr, [facility] [place] [facility] [address] [id number] [place] [address]- 8679 Apr, [facility] [place] [facility] [address] [id number] [place] [address]- 2526 Apr, [facility] [place] [facility] [address] [id number] [address]- 2463 Mar, [facility] [place] [facility] [address] [id number] [place] [address]- 1903 Mar, [facility] [place] [facility] [address] [id number] [place] [address]- 2530 Mar, [facility] [place] [facility] [address] [id number] [place] [address]- 1626 Mar, [facility] [place] [facility] [address] [id number] [address]- 2546 Feb, [facility] [address] [facility] [id number] [address] 2546 Feb, [facility] [address] [address] 2546 Feb, [facility] [address] [facility] [id number] [address]- 2546 Feb, [facility] [address] [facility] [id number] [address] 2546 Nov, [facility] [address] [facility] [id number] [address]- 7346 Sep, IMMUNIZATIONS No Known Immunizations SOCIAL HISTORY Never Assessed REASON FOR VISIT Follow-up Anxiety PLAN OF CARE Activity Details Follow Up 2 Weeks Reason: Follow-up VITAL SIGNS MEDICATIONS Unknown Medications RESULTS No Results PROCEDURES Procedure Date Ordered Result Body Site Psychotherapy, patient &/family, 45 minutes, established patient September 23, 2017 INSTRUCTIONS MEDICATIONS ADMINISTERED No Known Medications MEDICAL (GENERAL) HISTORY Type Description Date Medical History genital herpes Medical History depression
--- OUTSIDE RECORDS SUMMARY | 2018-08-07 18:53 | XMS REPORT ---
Author Author FARIDA DE LUNA Organization [facility] Address [address] [place] [address] Care Team Providers Care Brassiere Cup Mold Cutter Name Role Phone FARIDA DE LUNA Unavailable PROBLEMS Type Condition ICD9-CM Code YKF26-DW Code Onset Dates Condition Status SNOMED Code Problem ADD (attention deficit disorder) without hyperactivity F98.8 Active 84533371 Problem Generalized anxiety disorder F41.1 Active 61066048 Problem Genital herpes, unspecified A60.00 Active 06508860 Problem Moderate episode of recurrent major depressive disorder F33.1 Active 835195435 Problem Migraine with aura and without status migrainosus, not intractable G43.109 Active 2743278 ALLERGIES No Information ENCOUNTERS Encounter Location Date Diagnosis [place] [address] [place] [id number] [place] [address] 26367- 0754 Dec, [place] [address] 89787- 8842 Dec, [place] [address] [place] [id number] [place] [address] 68528- 4403 Nov, ADD (attention deficit disorder) without hyperactivity F98.8 [place] [address] [place] [id number] [place] [address] 73761- 9573 Nov, Generalized anxiety disorder F41.1 ; Moderate episode of recurrent major depressive disorder F33.1 and ADD (attention deficit disorder) without hyperactivity F98.8 [place] [address] 43092- 5305 Oct, ADD (attention deficit disorder) without hyperactivity F98.8 [place] [address] [place] [id number] [place] [address] 24546- 4631 Oct, Generalized anxiety disorder F41.1 ; Moderate episode of recurrent major depressive disorder F33.1 and ADD (attention deficit disorder) without hyperactivity F98.8 [facility] [address], [place] [address]- 1388 Oct, Generalized anxiety disorder F41.1 ; Moderate episode of recurrent major depressive disorder F33.1 and ADD (attention deficit disorder) without hyperactivity F98.8 [facility] [address], [place] [address]- 8051 Sep, ADD (attention deficit disorder) without hyperactivity F98.8 [facility] [address] [place] [id number] [place] [address] 30992- 0864 Sep, Generalized anxiety disorder F41.1 ; Moderate episode of recurrent major depressive disorder F33.1 and ADD (attention deficit disorder) without hyperactivity F98.8 [place] [address], [place] [address]- 5317 Sep, ADD (attention deficit disorder) without hyperactivity F98.8 [place] [address] [place] [address] 66097- 5749 August, Generalized anxiety disorder F41.1 ; Moderate episode of recurrent major depressive disorder F33.1 and ADD (attention deficit disorder) without hyperactivity F98.8 [place] [address], [place] [address]- 4840 August, Generalized anxiety disorder F41.1 ; Moderate episode of recurrent major depressive disorder F33.1 and ADD (attention deficit disorder) without hyperactivity F98.8 [place] [address], [place] [address]- 5764 Jul, ADD (attention deficit disorder) without hyperactivity F98.8 [facility] [address], [place] [address]- 0220 Jul, ADD (attention deficit disorder) without hyperactivity F98.8 [facility] [address], [place] [address]- 7487 Jul, Generalized anxiety disorder F41.1 ; Moderate episode of recurrent major depressive disorder F33.1 and ADD (attention deficit disorder) without hyperactivity F98.8 [place] [address] [place] [id number] [place] [address] 72227- 3058 29 Jun, 2017 Rash R21 [place] [address] [place] [id number] [place] [address] 04223- 4842 19 Jun, 2017 Generalized anxiety disorder F41.1 and ADD (attention deficit disorder) without hyperactivity F98.8 [facility] [address] 37762 -2874 09 Jun, 2017 Skin lesion L98.9 [place] [address] [place] [id number] [place] [address] 46155- 8297 07 Jun, 2017 Severe persistent reactive airway disease with acute exacerbation J45.51 [place] [address] [place] [id number] [place] [address] 68252- 1114 01 Jun, 2017 Generalized anxiety disorder F41.1 and ADD (attention deficit disorder) without hyperactivity F98.8 [facility] [place] [address] [place] [id number] [place] [address] 66974 -5579 16 May, 2017 Other specified bacterial agents as the cause of diseases classified elsewhere B96.89 and Acute pharyngitis due to other specified organisms J02.8 [place] [address] [place] [id number] [place] [address] 68657- 0794 14 May, 2017 Generalized anxiety disorder F41.1 [place] [address] [place] [id number] [place] [address] 10627- 3450 14 May, 2017 Shortness of breath R06.02 ; Moderate episode of recurrent major depressive disorder F33.1 and Anxiety F41.9 [facility] [address] [place] [id number] [place] [address] 97275 -6486 14 Jan, 2017 Folliculitis L73.9 [place] [address] [place] [id number] [place] [address] 68793- 4796 23 May, 2016 control counseling Z30.09 [place] [address] 26354- 8876 Nov, Family planning, BCP ( control pills) maintenance Z30.41 [facility] [address] [place] [id number] [place] [address] 28890- 3652 August, [facility] [address] [place] [id number] [place] [address] 25572- 4621 28 Apr, 2015 Encounter for counseling regarding contraception Z30.9 ; Genital herpes, unspecified A60.00 ; OCP (oral contraceptive pills) initiation Z30.011 and Routine screening for STI (sexually transmitted infection) Z11.3 [facility] [address] [place] [address] 30192- 0690 14 Jul, 2014 [facility] [address] [place] [id number] [place] [address] 90823- 0840 Jul, [facility] [address] [place] [id number] [place] [address] 56507- 0546 Apr, [facility] [address] [place] [id number] [place] [address] 87414- 3701 Apr, [facility] [address] [place] [id number] [place] [address] 87259- 7618 Mar, [facility] [address] [place] [id number] [place] [address] 44415- 5774 Mar, [facility] [address], [place] [address]- 0548 Jan, [facility] [address] [place] [address] 17716- 2178 Jan, [facility] [address], [place] [address]- 2464 Sep, [facility] [address] [place] [id number] [place] [address] 49683- 6309 Sep, [facility] [address], [place] [address]- 1535 Jul, [facility] [address] [place] [id number] [place] [address], [place] [address]- 4646 Jul, [facility] [place] [facility] [address] [id number] [place] [address]- 0529 Jun, [facility] [place] [facility] [address] [id number] [place] [address]- 1290 Jun, [facility] [place] [facility] [address] [id number] [place] [address]- 0766 May, [facility] [place] [facility] [address] [id number] [place] [address]- 0278 May, [facility] [place] [facility] [address] [id number] [place] [address]- 6855 May, [facility] [place] [facility] [address] [id number] [place] [address]- 8354 May, [facility] [place] [facility] [address] [id number] [place] [address]- 6471 May, [facility] [place] [facility] [address] [id number] [place] [address]- 9841 May, [facility] [place] [facility] [address] [id number] [place] [address]- 6443 May, [facility] [place] [facility] [address] [facility] [id number] [place] [address]- 3664 May, [facility] [place] [facility] [address] [id number] [place] [address]- 5384 May, [facility] [place] [facility] [address] [id number] [place] [address]- 1026 May, [facility] [place] [facility] [address] [id number] [place] [address]- 9651 Apr, [facility] [place] [facility] [address] [id number] [place] [address]- 0786 Apr, [facility] [place] [facility] [address] [id number] [place] [address]- 6406 Apr, [facility] [place] [facility] [address] [id number] [place] [address]- 4160 Apr, [facility] [place] [facility] [address] [id number] [place] [address]- 8812 Apr, [facility] [place] [facility] [address] [id number] [place] [address]- 0627 Apr, [facility] [place] [facility] [address] [id number] [place] [address]- 7582 Apr, [facility] [place] [facility] [address] [id number] [place] [address]- 2950 Apr, [facility] [place] [facility] [address] [id number] [place] [address]- 3699 Apr, [facility] [place] [facility] [address] [id number] [place] [address]- 0490 Apr, [facility] [place] [facility] [address] [id number] [place] [address]- 2475 Apr, [facility] [place] [facility] [address] [id number] [place] [address]- 6691 Apr, [facility] [place] [facility] [address] [id number] [place] [address]- 0963 Apr, [facility] [place] [facility] [address] [id number], [place] [address]- 3889 Apr, [facility] [place] [facility] [address] [id number], [place] [address]- 7357 Mar, [facility] [place] [facility] [address] [id number] [place] [address]- 8286 Mar, [facility] [place] [facility] [address] [id number], [place] [address]- 2709 Mar, [facility] [place] [facility] [address] [id number], [place] [address]- 2896 Mar, [facility] [place] [facility] [address] [facility] [id number], [place] [address]- 3786 Feb, [facility] [address] [place] [id number] [address]- 6537 Feb, [facility] [id number], [place] [address] Feb, [facility] [address] [id number], [place] [address] Feb, [facility] [address] [id number], [place] [address] Nov, [facility] [address] [id number], [place] [address] Sep, IMMUNIZATIONS No Known Immunizations SOCIAL HISTORY Never Assessed REASON FOR VISIT Controlled Med Refill 10/09/17 PLAN OF CARE VITAL SIGNS MEDICATIONS Medication Instructions Dosage Frequency Start Date End Date Duration Status Vyvanse 20 MG Orally Once a day 1 tablet in the morning 24h Sep, 28 days Active RESULTS No Results PROCEDURES No Known procedures INSTRUCTIONS MEDICATIONS ADMINISTERED No Known Medications MEDICAL (GENERAL) HISTORY Type Description Date Medical History genital herpes Medical History depression
--- OUTSIDE RECORDS SUMMARY | 2018-08-07 18:54 | XMS REPORT ---
Author Author MAITE PERALTA Organization [facility] Address [address] [place] [address] Care Team Providers Care Superintendent Transportation Name Role Phone MAITE PERALTA Unavailable PROBLEMS Type Condition ICD9-CM Code [id number] Code Onset Dates Condition Status SNOMED Code Problem ADD (attention deficit disorder) without hyperactivity F98.8 Active 64900829 Problem Generalized anxiety disorder F41.1 Active 34395824 Problem Genital herpes, unspecified A60.00 Active 89190839 Problem Moderate episode of recurrent major depressive disorder F33.1 Active 135685357 Problem Migraine with aura and without status migrainosus, not intractable G43.109 Active 9700010 ALLERGIES No Information ENCOUNTERS Encounter Location Date Diagnosis [place] [id number] [place] [address] 09372- 8204 Dec, [place] [id number] [place] [address] 32600- 0579 Dec, [place] [id number] [place] [address] 45821- 5798 Nov, [place] [id number] [place] [address] 83934- 8924 Oct, ADD (attention deficit disorder) without hyperactivity F98.8 [facility] [id number] [place] [address] 60782- 5660 Oct, Generalized anxiety disorder F41.1 ; Moderate episode of recurrent major depressive disorder F33.1 and ADD (attention deficit disorder) without hyperactivity F98.8 [place] [id number] [place] [address] 80405- 4403 Oct, Generalized anxiety disorder F41.1 ; Moderate episode of recurrent major depressive disorder F33.1 and ADD (attention deficit disorder) without hyperactivity F98.8 [place] [address] [address] 8818 Sep, ADD (attention deficit disorder) without hyperactivity F98.8 [facility] [id number] [place] [address] 49255- 3786 Sep, Generalized anxiety disorder F41.1 ; Moderate episode of recurrent major depressive disorder F33.1 and ADD (attention deficit disorder) without hyperactivity F98.8 [place] [id number] [place] [address] 81556- 9423 Sep, ADD (attention deficit disorder) without hyperactivity F98.8 [place] [id number] [place] [address] 38269- 7957 August, Generalized anxiety disorder F41.1 ; Moderate episode of recurrent major depressive disorder F33.1 and ADD (attention deficit disorder) without hyperactivity F98.8 [place] [id number] [place] [address] 59909- 5620 August, Generalized anxiety disorder F41.1 ; Moderate episode of recurrent major depressive disorder F33.1 and ADD (attention deficit disorder) without hyperactivity F98.8 [place] [address] [place] [address] 88412- 3876 Jul, ADD (attention deficit disorder) without hyperactivity F98.8 [place] [address] [address]- 3767 Jul, ADD (attention deficit disorder) without hyperactivity F98.8 [place] [address] [address]- 1052 Jul, Generalized anxiety disorder F41.1 ; Moderate episode of recurrent major depressive disorder F33.1 and ADD (attention deficit disorder) without hyperactivity F98.8 [place] [address] [address] 5388 Jun, Rash R21 [facility] [address] [address]- 0403 Jun, Generalized anxiety disorder F41.1 and ADD (attention deficit disorder) without hyperactivity F98.8 [facility] [id number] [place] [address] 98095 -0804 09 Jun, 2017 Skin lesion L98.9 [place] [address] 64977- 6107 07 Jun, 2017 Severe persistent reactive airway disease with acute exacerbation J45.51 [place] [address] 26319- 6470 Jun, Generalized anxiety disorder F41.1 and ADD (attention deficit disorder) without hyperactivity F98.8 [facility] [address] 00369 -4846 16 May, 2017 Other specified bacterial agents as the cause of diseases classified elsewhere B96.89 and Acute pharyngitis due to other specified organisms J02.8 [place] [address] 61471- 2113 14 May, 2017 Generalized anxiety disorder F41.1 [place] [address] 04519- 9511 14 May, 2017 Shortness of breath R06.02 ; Moderate episode of recurrent major depressive disorder F33.1 and Anxiety F41.9 [facility] [id number] [place] [address] 24982 -9298 14 Jan, 2017 Folliculitis L73.9 [place] [address] 91339- 4973 23 May, 2016 control counseling Z30.09 [place] [id number] [place] [address] 03620- 3802 15 Nov, 2015 Family planning, BCP ( control pills) maintenance Z30.41 [place] [address] 49272- 0226 August, [place] [address] 55842- 2448 28 Adnyel, 2016 Encounter for counseling regarding contraception Z30.9 ; Genital herpes, unspecified A60.00 ; OCP (oral contraceptive pills) initiation Z30.011 and Routine screening for STI (sexually transmitted infection) Z11.3 [facility] [address] 7749 14 Jul, 2014 [facility] [address] [address]- 0735 13 Jul, 2014 [facility] [address] [address]- 7258 Apr, [facility] [address] [place] [address] 17109- 7065 Apr, [facility] [address] [address]- 8787 Mar, [facility] [address] [address]- 4865 Mar, [facility] [address] [address]- 9859 Jan, [facility] [address] [address]- 7592 Jan, [facility] [address] [address]- 3259 Sep, [facility] [address] [address]- 2237 Sep, [facility] [address] [address]- 2956 Jul, [facility] [address] [address]- 6601 Jul, [facility] [address] 4592 Jun, [facility] [address] 0640 Jun, [facility] [place] [facility] [address] [id number] [place] [address]- 0609 May, [facility] [place] [facility] [address] [id number] [place] [address]- 0761 May, [facility] [place] [facility] [address] [id number] [place] [address]- 6306 May, [facility] [place] [facility] [address] [id number] [place] [address]- 9118 May, [facility] [place] [facility] [address] [id number] [place] [address]- 1628 May, [facility] [place] [facility] [address] [id number] [place] [address]- 6412 May, [facility] [place] [facility] [address] [id number] [place] [address]- 2671 May, [facility] [place] [facility] [address] [id number] [place] [address]- 5537 May, [facility] [place] [facility] [address] [id number] [place] [address]- 5084 May, [facility] [place] [facility] [address] [id number] [place] [address]- 0996 May, [facility] [place] [facility] [address] [id number] [place] [address]- 1155 Apr, [facility] [place] [facility] [address] [id number] [place] [address]- 9037 Apr, [facility] [place] [facility] [address] [id number] [place] [address]- 3016 Apr, [facility] [place] [facility] [address] [id number] [place] [address]- 1131 Apr, [facility] [place] [facility] [address] [id number] [place] [address]- 9100 Apr, [facility] [place] [facility] [address] [id number] [place] [address]- 4561 17 Apr, 2013 [facility] [address] [id number] [place] [address]- 7071 Apr, [facility] [place] [facility] [address] [id number] [place] [address]- 7625 Apr, [facility] [place] [facility] [address] [id number] [place] [address]- 8677 Apr, [facility] [place] [facility] [address] [id number] [place] [address]- 4277 Apr, [facility] [place] [facility] [address] [id number] [place] [address]- 1583 Apr, [facility] [place] [facility] [address] [id number] [place] [address]- 6979 Apr, [facility] [place] [facility] [address] [id number] [place] [address]- 0915 Apr, [facility] [place] [facility] [address] [id number] [place] [address]- 3575 Apr, [facility] [place] [facility] [address] [id number] [place] [address]- 7984 Mar, [facility] [place] [facility] [address] [id number] [place] [address]- 7058 Mar, [facility] [place] [facility] [address] [id number] [place] [address]- 9453 Mar, [facility] [place] [facility] [address] [id number] [place] [address]- 1407 Mar, [facility] [place] [facility] [address] [id number] [place] [address]- 5902 Feb, [facility] [place] [facility] [address] [id number] [place] [address]- 4862 Feb, [facility] [place] [facility] [address] [id number] [place] [address]- 6448 Feb, [facility] [address] [facility] [id number] [place] [address]- 0416 Feb, [facility] [address] [facility] [id number] [address]- 3606 Nov, [facility] [address] [facility] [id number] [address]- 3346 Sep, IMMUNIZATIONS No Known Immunizations SOCIAL HISTORY Never Assessed REASON FOR VISIT Controlled Med Refill/Vyvanse PLAN OF CARE VITAL SIGNS MEDICATIONS Medication Instructions Dosage Frequency Start Date End Date Duration Status Lisdexamfetamine Dimesylate 20 MG Orally Once a day 1 capsule in the morning 24h Jul, 28 days Active RESULTS No Results PROCEDURES No Known procedures INSTRUCTIONS MEDICATIONS ADMINISTERED No Known Medications MEDICAL (GENERAL) HISTORY Type Description Date Medical History genital herpes Medical History depression
--- OUTSIDE RECORDS SUMMARY | 2018-08-07 18:54 | XMS REPORT ---
Author Author OSMEL GARCIA Organization [facility] Address [address] [place] [address] Care Team Providers Care Cigar Bander Hand Name Role Phone RADHAHEYDIOSMEL Unavailable PROBLEMS Type Condition ICD9-CM Code BKM79-OC Code Onset Dates Condition Status SNOMED Code Problem ADD (attention deficit disorder) without hyperactivity F98.8 Active 75427950 Problem Generalized anxiety disorder F41.1 Active 61935203 Problem Genital herpes, unspecified A60.00 Active 34331799 Problem Moderate episode of recurrent major depressive disorder F33.1 Active 794281135 Problem Migraine with aura and without status migrainosus, not intractable G43.109 Active 0513093 ALLERGIES No Information ENCOUNTERS Encounter Location Date Diagnosis [place] [id number] [place] [address] 13470- 6648 Dec, [place] [address] [place] [address] [id number] [place] [address] 72593- 8921 Dec, [place] [id number] [place] [address] 36588- 6684 Nov, Generalized anxiety disorder F41.1 ; Moderate episode of recurrent major depressive disorder F33.1 and ADD (attention deficit disorder) without hyperactivity F98.8 [place] [address] [place] [address] 66867- 7384 Oct, ADD (attention deficit disorder) without hyperactivity F98.8 [facility] [address] [place] [address] 57877- 0261 Oct, Generalized anxiety disorder F41.1 ; Moderate episode of recurrent major depressive disorder F33.1 and ADD (attention deficit disorder) without hyperactivity F98.8 [place] [address] [place] [address] 68319- 9686 Oct, Generalized anxiety disorder F41.1 ; Moderate episode of recurrent major depressive disorder F33.1 and ADD (attention deficit disorder) without hyperactivity F98.8 [facility] [address], [place] [address]- 7044 Sep, ADD (attention deficit disorder) without hyperactivity F98.8 [facility] [address] [place] [id number], [place] [address]- 2558 Sep, Generalized anxiety disorder F41.1 ; Moderate episode of recurrent major depressive disorder F33.1 and ADD (attention deficit disorder) without hyperactivity F98.8 [facility] [id number], [place] [address]- 9181 Sep, ADD (attention deficit disorder) without hyperactivity F98.8 [facility] [id number] [address]- 1282 August, Generalized anxiety disorder F41.1 ; Moderate episode of recurrent major depressive disorder F33.1 and ADD (attention deficit disorder) without hyperactivity F98.8 [facility] [address], [place] [address]- 9197 August, Generalized anxiety disorder F41.1 ; Moderate episode of recurrent major depressive disorder F33.1 and ADD (attention deficit disorder) without hyperactivity F98.8 [facility] [id number], [place] [address]- 9395 Jul, ADD (attention deficit disorder) without hyperactivity F98.8 [facility] [address], [place] [address]- 5753 Jul, ADD (attention deficit disorder) without hyperactivity F98.8 [facility] [id number], [place] [address]- 7122 Jul, Generalized anxiety disorder F41.1 ; Moderate episode of recurrent major depressive disorder F33.1 and ADD (attention deficit disorder) without hyperactivity F98.8 [facility] [id number], [place] [address]- 3243 Jun, Rash R21 [place] [id number] [place] [address] 45795- 4313 19 Jun, 2017 Generalized anxiety disorder F41.1 and ADD (attention deficit disorder) without hyperactivity F98.8 [facility] [id number] [place] [address] 83979 -5287 09 Jun, 2017 Skin lesion L98.9 [place] [address] 05787- 5403 07 Jun, 2017 Severe persistent reactive airway disease with acute exacerbation J45.51 [place] [id number] [place] [address] 61115- 0199 Jun, Generalized anxiety disorder F41.1 and ADD (attention deficit disorder) without hyperactivity F98.8 [facility] [place] [id number] [place] [address] 67650 -9981 16 May, 2017 Other specified bacterial agents as the cause of diseases classified elsewhere B96.89 and Acute pharyngitis due to other specified organisms J02.8 [place] [id number] [place] [address] 31817- 1073 14 May, 2017 Generalized anxiety disorder F41.1 [place] [id number] [place] [address] 25607- 7550 14 May, 2017 Shortness of breath R06.02 ; Moderate episode of recurrent major depressive disorder F33.1 and Anxiety F41.9 [facility] [place] [id number] [place] [address] 77401 -9532 14 Jan, 2017 Folliculitis L73.9 [place] [address] 52549- 7322 23 May, 2016 control counseling Z30.09 [place] [address] 62747- 5581 Nov, Family planning, BCP ( control pills) maintenance Z30.41 [place] [address] 45566- 3476 August, [facility] [address] 3065 28 Apr, 2015 Encounter for counseling regarding contraception Z30.9 ; Genital herpes, unspecified A60.00 ; OCP (oral contraceptive pills) initiation Z30.011 and Routine screening for STI (sexually transmitted infection) Z11.3 [facility] [address], [place] [address]- 9997 14 Jul, 2014 [facility] [address] [facility] [id number] [address]- 1050 Jul, [facility] [id number] [place] [address] 446931- 1382 Apr, [facility] [address], [place] [address]- 0132 Apr, [facility] [id number] 2616 Mar, [facility] [address], [place] [address]- 8436 Mar, [facility] [address], [place] [address]- 4727 Jan, [facility] [address], [place] [address]- 5884 Jan, [facility] [address]- 7140 Sep, [facility] [address], [place] [address]- 0891 Sep, [facility] [address], [place] [address]- 5915 Jul, [facility] [address] 5911 Jul, [facility] [address], [place] [address]- 7172 Jun, [facility] [place] [facility] [address] [id number] [place] [address]- 8098 Jun, [facility] [place] [facility] [address] [id number] [place] [address]- 6236 May, [facility] [place] [facility] [address] [id number] [place] [address]- 8656 May, [facility] [place] [facility] [address] [id number] [place] [address]- 9121 May, [facility] [place] [facility] [address] [id number] [place] [address]- 9440 May, [facility] [place] [facility] [address] [id number] [place] [address]- 3993 May, [facility] [place] [facility] [address] [id number] [place] [address]- 1257 May, [facility] [place] [facility] [address] [id number] [place] [address]- 1996 May, [facility] [place] [facility] [address] [id number] [place] [address]- 4281 May, [facility] [place] [facility] [address] [id number] [place] [address]- 7350 May, [facility] [place] [facility] [address] [id number] [place] [address]- 7614 May, [facility] [place] [facility] [address] [id number] [place] [address]- 7794 Apr, [facility] [place] [facility] [address] [id number] [place] [address]- 4871 Apr, [facility] [place] [facility] [address] [id number] [place] [address]- 0309 Apr, [facility] [place] [facility] [address] [id number] [place] [address]- 1812 Apr, [facility] [place] [facility] [address] [id number] [place] [address]- 3333 Apr, [facility] [address] [id number] [place] [address]- 3054 Apr, [facility] [address] [id number] [place] [address]- 1256 Apr, [facility] [address] [id number] [place] [address]- 4776 Apr, [facility] [address] [id number] [place] [address]- 1465 Apr, [facility] [address] [id number] [place] [address]- 6331 Apr, [facility] [address] [id number] [place] [address]- 1828 Apr, [facility] [address] [id number] [place] [address]- 3083 Apr, [facility] [address] [id number] [place] [address]- 2658 Apr, [facility] [address] [id number] [place] [address]- 8073 Apr, [facility] [address] [id number] [place] [address]- 9326 Mar, [facility] [address] [id number] [place] [address]- 4898 Mar, [facility] [address] [id number] [place] [address]- 0047 Mar, [facility] [place] [facility] [address] [id number] [place] [address]- 5817 Mar, [facility] [place] [facility] [address] [id number] [place] [address]- 9502 Feb, [facility] [address] [id number] [place] [address]- 4225 Feb, [facility] [address] [facility] [id number] [address]- 2546 Feb, [facility] [address] [facility] [id number], [place] [address]- 2546 Feb, [facility] [address] [facility] [id number], [place] [address]- 2546 Nov, [facility] [address] [place] [id number], [place] [address]- 2546 Sep, IMMUNIZATIONS No Known Immunizations SOCIAL HISTORY Never Assessed REASON FOR VISIT Follow-up Anxiety PLAN OF CARE Activity Details Follow Up 3 Weeks Reason: Follow-up VITAL SIGNS MEDICATIONS Unknown Medications RESULTS No Results PROCEDURES Procedure Date Ordered Result Body Site Psychotherapy, patient &/family, 45 minutes, established patient September 03, 2017 INSTRUCTIONS MEDICATIONS ADMINISTERED No Known Medications MEDICAL (GENERAL) HISTORY Type Description Date Medical History genital herpes Medical History depression
--- OUTSIDE RECORDS SUMMARY | 2018-08-07 18:54 | XMS REPORT ---
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 Name Role Phone FARIDA DE LUNA Unavailable PROBLEMS Type Condition ICD9-CM Code GNS77-JK Code Onset Dates Condition Status SNOMED Code Problem ADD (attention deficit disorder) without hyperactivity F98.8 Active 91146132 Problem Generalized anxiety disorder F41.1 Active 58857955 Problem Genital herpes, unspecified A60.00 Active 26657407 Problem Moderate episode of recurrent major depressive disorder F33.1 Active 215421742 Problem Migraine with aura and without status migrainosus, not intractable G43.109 Active 4205782 ALLERGIES Substance Reaction Event Type Date Status Penicillin V Potassium rash Drug Allergy Jul, Active ENCOUNTERS Encounter Location Date Diagnosis [facility] [id number] [place] [address] 71109- 0077 Dec, [facility] [id number] [place] [address] 27623- 4096 Dec, [facility] [id number] [place] [address] 56921- 3755 Nov, [facility] [id number] [place] [address] 05848- 0734 Oct, ADD (attention deficit disorder) without hyperactivity F98.8 [facility] [id number] [place] [address] 66242- 2634 Oct, Generalized anxiety disorder F41.1 ; Moderate episode of recurrent major depressive disorder F33.1 and ADD (attention deficit disorder) without hyperactivity F98.8 [facility] [id number] [place] [address] 23037- 2787 Oct, Generalized anxiety disorder F41.1 ; Moderate episode of recurrent major depressive disorder F33.1 and ADD (attention deficit disorder) without hyperactivity F98.8 [facility] [id number] [address]- 2345 Sep, ADD (attention deficit disorder) without hyperactivity F98.8 [facility] [address] [id number] [address]- 4036 Sep, Generalized anxiety disorder F41.1 ; Moderate episode of recurrent major depressive disorder F33.1 and ADD (attention deficit disorder) without hyperactivity F98.8 [facility] [id number] [address]- 8448 Sep, ADD (attention deficit disorder) without hyperactivity F98.8 [facility] [id number] [address]- 4860 August, Generalized anxiety disorder F41.1 ; Moderate episode of recurrent major depressive disorder F33.1 and ADD (attention deficit disorder) without hyperactivity F98.8 [facility] [address] [id number] [address]- 2958 August, Generalized anxiety disorder F41.1 ; Moderate episode of recurrent major depressive disorder F33.1 and ADD (attention deficit disorder) without hyperactivity F98.8 [facility] [id number] [address]- 4571 Jul, ADD (attention deficit disorder) without hyperactivity F98.8 [facility] [id number] [address]- 9539 Jul, ADD (attention deficit disorder) without hyperactivity F98.8 [facility] [address] [id number] [address]- 0457 Jul, Generalized anxiety disorder F41.1 ; Moderate episode of recurrent major depressive disorder F33.1 and ADD (attention deficit disorder) without hyperactivity F98.8 [facility] [address] [id number] [address]- 0044 Jun, Rash R21 [facility] [id number] [place] [address] 50319- 3034 19 Jun, 2017 Generalized anxiety disorder F41.1 and ADD (attention deficit disorder) without hyperactivity F98.8 [facility] WALK IN [facility] [address] 6[address] -1658 09 Jun, 2017 Skin lesion L98.9 [place] [address] 23836- 8509 07 Jun, 2017 Severe persistent reactive airway disease with acute exacerbation J45.51 [place] [address] 25547- 4332 01 Jun, 2017 Generalized anxiety disorder F41.1 and ADD (attention deficit disorder) without hyperactivity F98.8 [facility] [place] [address] 84500 -5545 16 May, 2017 Other specified bacterial agents as the cause of diseases classified elsewhere B96.89 and Acute pharyngitis due to other specified organisms J02.8 [place] [address] 82569- 0137 14 May, 2017 Generalized anxiety disorder F41.1 [place] [address] 11937- 2120 14 May, 2017 Shortness of breath R06.02 ; Moderate episode of recurrent major depressive disorder F33.1 and Anxiety F41.9 [facility] [place] [address] 25333 -6347 14 Jan, 2017 Folliculitis L73.9 [place] [address] 37136- 5083 23 May, 2016 control counseling Z30.09 [place] [address] 02191- 0185 15 Nov, 2015 Family planning, BCP ( control pills) maintenance Z30.41 [place] [address] 08167- 7660 August, [place] [address] [address] 28 Apr, 2016 Encounter for counseling regarding contraception Z30.9 ; Genital herpes, unspecified A60.00 ; OCP (oral contraceptive pills) initiation Z30.011 and Routine screening for STI (sexually transmitted infection) Z11.3 [facility] [id number] 9420 14 Jul, 2014 [facility] [id number] 9447 13 Jul, 2014 [facility] [address] 57[address] Apr, [facility] [address] 2815 Apr, [facility] [address], [place] [address]- 0497 Mar, [facility] [address], [place] [address]- 5032 Mar, [facility] [address], [place] [address]- 1264 Jan, [facility] [address], [place] [address]- 2076 Jan, [facility] [address], [place] [address]- 4985 Sep, [facility] [address], [place] [address]- 6347 Sep, [facility] [id number] 5288 Jul, [facility] [address] 7753 Jul, [facility] [id number] [address]- 6542 Jun, [facility] [address] [id number] [place] [address]- 0867 Jun, [facility] [place] [facility] [address] [id number] [place] [address]- 1478 May, [facility] [place] [facility] [address] [id number] [place] [address]- 9436 May, [facility] [place] [facility] [address] [id number] [place] [address]- 0946 May, [facility] [place] [facility] [address] [id number] [place] [address]- 4140 May, [facility] [place] [facility] [address] [id number] [place] [address]- 4854 May, [facility] [place] [facility] [address] [facility] [id number] [place] [address]- 4008 May, [facility] [place] [facility] [address] [id number] [place] [address]- 8619 May, [facility] [place] [facility] [address] [id number] [place] [address]- 6663 May, [facility] [place] [facility] [address] [facility] [id number] [place] [address]- 7606 May, [facility] [place] [facility] [address] [id number] [place] [address]- 7021 May, [facility] [place] [facility] [address] [id number] [place] [address]- 5243 Apr, [facility] [place] [facility] [address] [id number] [place] [address]- 4074 Apr, [facility] [place] [facility] [address] [id number] [place] [address]- 6630 Apr, [facility] [place] [facility] [address] [id number] [place] [address]- 3144 Apr, [facility] [place] [facility] [address] [id number] [place] [address]- 0056 Apr, [facility] [place] [facility] [address] [id number] [place] [address]- 2760 Apr, [facility] [place] [facility] [address] [id number] [place] [address]- 3064 Apr, [facility] [place] [facility] [address] [id number] [place] [address]- 3113 Apr, [facility] [place] [facility] [address] [id number] [place] [address]- 1132 Apr, [facility] [place] [facility] [address] [id number] [place] [address]- 5919 Apr, [facility] [place] [facility] [address] [id number] [place] [address]- 7673 Apr, [facility] [place] [facility] [address] [id number] [place] [address]- 8575 Apr, [facility] [place] [facility] [address] [id number] [place] [address]- 8212 Apr, [facility] [place] [facility] [address] [id number] [place] [address]- 7452 Apr, [facility] [place] [facility] [address] [id number] [place] [address]- 6016 Mar, [facility] [place] [facility] [address] [id number], [place] [address]- 8178 Mar, [facility] [place] [facility] [address] [id number] [address]- 1884 Mar, [facility] [place] [facility] [address] [id number] [place] [address]- 0583 Mar, [facility] [place] [facility] [address] [id number] [place] [address]- 1265 Feb, [facility] [place] [facility] [address] [id number] [place] [address]- 6223 Feb, [facility] [place] [facility] [address] [facility] [id number] [place] [address]- 4946 Feb, [facility] [address] [facility] [id number] [address]- 2643 Feb, [facility] [address] [facility] [id number] [address] 2546 Nov, [facility] [address] [facility] [id number] 5287 Sep, IMMUNIZATIONS No Known Immunizations SOCIAL HISTORY Never Assessed REASON FOR VISIT Anxiety f/u-Jordon MARVIN PLAN OF CARE Activity Details Follow Up 2 Months Reason:ADD VITAL SIGNS Height 67 in 2017-07-17 Weight 161.0 lbs 2017-07-17 Temperature 98.1 degrees Fahrenheit 2017-07-17 Heart Rate 66 bpm 2017-07-17 Respiratory Rate 18 2017-07-17 BMI 25.21 kg/m2 2017-07-17 Blood pressure systolic 110 mmHg 2017-07-17 Blood pressure diastolic 78 mmHg 2017-07-17 MEDICATIONS Medication Instructions Dosage Frequency Start Date End Date Duration Status Singulair 10 MG Orally Once a day 1 tablet in the evening 24h Active Lisdexamfetamine Dimesylate 20 mg Orally Once a day 1 capsule in the morning 24h Jul, 14 days Active Cetirizine HCl 10 mg Orally Once a day 1 tablet 24h 14 May, 2017 Jul, 30 day(s) Active Triamcinolone Acetonide 0.1 % Externally Twice a day 1 application to affected area 12h Jun, 14 days Active RESULTS No Results PROCEDURES No Known procedures INSTRUCTIONS MEDICATIONS ADMINISTERED No Known Medications MEDICAL (GENERAL) HISTORY Type Description Date Medical History genital herpes Medical History depression
--- OUTSIDE RECORDS SUMMARY | 2018-08-07 18:54 | XMS REPORT ---
Author Author OSMEL GARCIA Organization [facility] Address [address] [place] [address] Care Team Providers Care Cat Tender Name Role Phone RADHAHEYDIOSMEL Unavailable PROBLEMS Type Condition ICD9-CM Code QLP80-DD Code Onset Dates Condition Status SNOMED Code Problem ADD (attention deficit disorder) without hyperactivity F98.8 Active 59087542 Problem Generalized anxiety disorder F41.1 Active 69534961 Problem Genital herpes, unspecified A60.00 Active 04659179 Problem Moderate episode of recurrent major depressive disorder F33.1 Active 863322267 Problem Migraine with aura and without status migrainosus, not intractable G43.109 Active 8630013 ALLERGIES No Information ENCOUNTERS Encounter Location Date Diagnosis [place] [id number] [place] [address] 25534- 4175 Dec, [place] [id number] [place] [address] 48652- 0247 Dec, [place] [id number] [place] [address] 06992- 8786 Nov, Generalized anxiety disorder F41.1 ; Moderate episode of recurrent major depressive disorder F33.1 and ADD (attention deficit disorder) without hyperactivity F98.8 [place] [address] [place] [address] 37280- 7489 Oct, ADD (attention deficit disorder) without hyperactivity F98.8 [facility] [id number] [place] [address] 85266- 3874 Oct, Generalized anxiety disorder F41.1 ; Moderate episode of recurrent major depressive disorder F33.1 and ADD (attention deficit disorder) without hyperactivity F98.8 [place] [address] [place] [address] 53063- 9011 Oct, Generalized anxiety disorder F41.1 ; Moderate episode of recurrent major depressive disorder F33.1 and ADD (attention deficit disorder) without hyperactivity F98.8 [facility] [address] [address]- 3933 Sep, ADD (attention deficit disorder) without hyperactivity F98.8 [facility] [id number] [address]- 5044 Sep, Generalized anxiety disorder F41.1 ; Moderate episode of recurrent major depressive disorder F33.1 and ADD (attention deficit disorder) without hyperactivity F98.8 [facility] [id number] [address]- 5132 Sep, ADD (attention deficit disorder) without hyperactivity F98.8 [facility] [id number] [address]- 9307 August, Generalized anxiety disorder F41.1 ; Moderate episode of recurrent major depressive disorder F33.1 and ADD (attention deficit disorder) without hyperactivity F98.8 [facility] [address], [place] [address]- 5002 August, Generalized anxiety disorder F41.1 ; Moderate episode of recurrent major depressive disorder F33.1 and ADD (attention deficit disorder) without hyperactivity F98.8 [facility] [id number] [address]- 4382 Jul, ADD (attention deficit disorder) without hyperactivity F98.8 [facility] [address] [address]- 5199 Jul, ADD (attention deficit disorder) without hyperactivity F98.8 [facility] [address] [id number] [address]- 8073 Jul, Generalized anxiety disorder F41.1 ; Moderate episode of recurrent major depressive disorder F33.1 and ADD (attention deficit disorder) without hyperactivity F98.8 [facility] [id number] [address]- 1500 Jun, Rash R21 [place] [address] [place] [address] 05486- 7267 19 Jun, 2017 Generalized anxiety disorder F41.1 and ADD (attention deficit disorder) without hyperactivity F98.8 [facility] WALK IN [facility] [id number] [place] [address] 27080 -0043 09 Jun, 2017 Skin lesion L98.9 [place] [address] 6[address]89- 8829 07 Jun, 2017 Severe persistent reactive airway disease with acute exacerbation J45.51 [place] [id number] [place] [address] 08114- 7732 Jun, Generalized anxiety disorder F41.1 and ADD (attention deficit disorder) without hyperactivity F98.8 [facility] WALK IN [place] [id number] [place] [address] 90359 -8850 16 May, 2017 Other specified bacterial agents as the cause of diseases classified elsewhere B96.89 and Acute pharyngitis due to other specified organisms J02.8 [place] [id number] [place] [address] 51396- 1311 14 May, 2017 Generalized anxiety disorder F41.1 [place] [id number] [place] [address] 48392- 5503 14 May, 2017 Shortness of breath R06.02 ; Moderate episode of recurrent major depressive disorder F33.1 and Anxiety F41.9 [facility] [place] [id number] [place] [address] 79405 -8006 14 Jan, 2017 Folliculitis L73.9 [place] [address] 83243- 3248 23 May, 2016 control counseling Z30.09 [place] [address] 52846- 2659 Nov, Family planning, BCP ( control pills) maintenance Z30.41 [place] [address] 09911- 1859 August, [facility] [address] 1301 28 Apr, 2015 Encounter for counseling regarding contraception Z30.9 ; Genital herpes, unspecified A60.00 ; OCP (oral contraceptive pills) initiation Z30.011 and Routine screening for STI (sexually transmitted infection) Z11.3 [facility] [address], [place] [address]- 7514 14 Jul, 2014 [facility] [address] [facility] [id number] [address]- 0006 Jul, [facility] [address] [place] [address] 543774- 7020 Apr, [facility] [address] [address]- 4574 Apr, [facility] [id number] 0690 Mar, [facility] [address] [address]- 1287 Mar, [facility] [address], [place] [address]- 9322 Jan, [facility] [address], [place] [address]- 4093 Jan, [facility] [address] 9639 Sep, [facility] [address] [address]- 9534 Sep, [facility] [address], [place] [address]- 2142 Jul, [facility] [address] 4908 Jul, [facility] [address], [place] [address]- 0247 Jun, [facility] [place] [facility] [address] [id number] [place] [address]- 9063 Jun, [facility] [place] [facility] [address] [id number] [place] [address]- 4586 May, [facility] [place] [facility] [address] [id number] [place] [address]- 4706 May, [facility] [place] [facility] [address] [id number] [place] [address]- 8025 May, [facility] [place] [facility] [address] [id number] [place] [address]- 8031 May, [facility] [place] [facility] [address] [id number] [place] [address]- 1242 May, [facility] [place] [facility] [address] [id number] [place] [address]- 7391 May, [facility] [place] [facility] [address] [id number] [place] [address]- 3693 May, [facility] [place] [facility] [address] [id number] [place] [address]- 8091 May, [facility] [place] [facility] [address] [id number] [place] [address]- 6130 May, [facility] [place] [facility] [address] [id number] [place] [address]- 1909 May, [facility] [place] [facility] [address] [id number] [place] [address]- 9601 Apr, [facility] [place] [facility] [address] [id number] [place] [address]- 7807 Apr, [facility] [place] [facility] [address] [id number] [place] [address]- 8886 Apr, [facility] [place] [facility] [address] [id number] [place] [address]- 8206 Apr, [facility] [place] [facility] [address] [id number] [place] [address]- 3296 Apr, [facility] [address] [id number] [place] [address]- 7816 Apr, [facility] [address] [id number] [place] [address]- 1726 Apr, [facility] [address] [id number] [place] [address]- 6538 Apr, [facility] [address] [id number] [place] [address]- 1081 Apr, [facility] [address] [id number] [place] [address]- 2229 Apr, [facility] [address] [id number] [place] [address]- 7513 Apr, [facility] [address] [id number] [place] [address]- 8461 Apr, [facility] [address] [id number] [place] [address]- 7661 Apr, [facility] [address] [id number] [place] [address]- 5050 Apr, [facility] [address] [id number] [place] [address]- 2299 Mar, [facility] [address] [id number] [place] [address]- 3102 Mar, [facility] [address] [id number] [place] [address]- 1838 Mar, [facility] [place] [facility] [address] [id number] [place] [address]- 1708 Mar, [facility] [place] [facility] [address] [id number] [place] [address]- 6255 Feb, [facility] [address] [id number] [place] [address]- 4271 Feb, [facility] [address] [facility] [id number] [address]- 2546 Feb, [facility] [id number] [address]- 2546 Feb, [facility] [address] [facility] [id number] [address]- 2546 Nov, [facility] [id number] [address]- 2546 Sep, IMMUNIZATIONS No Known Immunizations SOCIAL HISTORY Never Assessed REASON FOR VISIT Follow-up Anxiety PLAN OF CARE Activity Details Follow Up 2 Weeks Reason: Follow-up VITAL SIGNS MEDICATIONS Unknown Medications RESULTS No Results PROCEDURES Procedure Date Ordered Result Body Site Psychotherapy, patient &/family, 45 minutes, established patient August 19, 2017 INSTRUCTIONS MEDICATIONS ADMINISTERED No Known Medications MEDICAL (GENERAL) HISTORY Type Description Date Medical History genital herpes Medical History depression
--- OUTSIDE RECORDS SUMMARY | 2018-08-07 18:55 | XMS REPORT ---
Author Author MAITE PERALTA Organization [facility] Address [address] [place] [address] Care Team Providers Care Warm In Name Role Phone MAITE PERALTA Unavailable PROBLEMS Type Condition ICD9-CM Code [id number] Code Onset Dates Condition Status SNOMED Code Problem ADD (attention deficit disorder) without hyperactivity F98.8 Active 31733999 Problem Generalized anxiety disorder F41.1 Active 41706064 Problem Genital herpes, unspecified A60.00 Active 59844033 Problem Moderate episode of recurrent major depressive disorder F33.1 Active 923544542 Problem Migraine with aura and without status migrainosus, not intractable G43.109 Active 7915375 ALLERGIES Substance Reaction Event Type Date Status Penicillin V Potassium rash Drug Allergy Jun, Active ENCOUNTERS Encounter Location Date Diagnosis [place] [id number] [place] [address] 91503- 9366 Dec, [place] [address] [place] [id number] [place] [address] 47222- 1652 Dec, [facility] [id number] [place] [address] 96021- 7555 Nov, [facility] [address] [place] [id number] [place] [address] 92006- 8595 Oct, Generalized anxiety disorder F41.1 ; Moderate episode of recurrent major depressive disorder F33.1 and ADD (attention deficit disorder) without hyperactivity F98.8 [facility] [id number] [place] [address] 97328- 6862 Oct, Generalized anxiety disorder F41.1 ; Moderate episode of recurrent major depressive disorder F33.1 and ADD (attention deficit disorder) without hyperactivity F98.8 [facility] [address] [place] [address] 42753- 7383 Sep, ADD (attention deficit disorder) without hyperactivity F98.8 [facility] [address] [address] 68[address] Sep, Generalized anxiety disorder F41.1 ; Moderate episode of recurrent major depressive disorder F33.1 and ADD (attention deficit disorder) without hyperactivity F98.8 [facility] [address] [address] 2795 Sep, ADD (attention deficit disorder) without hyperactivity F98.8 [facility] [address] [address] 1383 August, Generalized anxiety disorder F41.1 ; Moderate episode of recurrent major depressive disorder F33.1 and ADD (attention deficit disorder) without hyperactivity F98.8 [facility] [address] [address] 58[address] August, Generalized anxiety disorder F41.1 ; Moderate episode of recurrent major depressive disorder F33.1 and ADD (attention deficit disorder) without hyperactivity F98.8 [facility] [address] [address]- 0233 Jul, ADD (attention deficit disorder) without hyperactivity F98.8 [facility] [address] [address]- 7497 Jul, ADD (attention deficit disorder) without hyperactivity F98.8 [facility] [address] [address]- 5974 Jul, Generalized anxiety disorder F41.1 ; Moderate episode of recurrent major depressive disorder F33.1 and ADD (attention deficit disorder) without hyperactivity F98.8 [facility] [address] [address] 9445 Jun, Rash R21 [facility] [address] [address]- 7993 Jun, Generalized anxiety disorder F41.1 and ADD (attention deficit disorder) without hyperactivity F98.8 [facility] [address] [id number] [place] [address] 13012 -6671 09 Jun, 2017 Skin lesion L98.9 [place] [address] 20417- 6472 07 Jun, 2017 Severe persistent reactive airway disease with acute exacerbation J45.51 [place] [address] 62346- 3994 01 Jun, 2017 Generalized anxiety disorder F41.1 and ADD (attention deficit disorder) without hyperactivity F98.8 [facility] [address] [place] [id number] [place] [address] 58954 -7088 16 May, 2017 Other specified bacterial agents as the cause of diseases classified elsewhere B96.89 and Acute pharyngitis due to other specified organisms J02.8 [place] [address] [place] [id number] [place] [address] 15946- 8680 14 May, 2017 Generalized anxiety disorder F41.1 [place] [address] 05346- 2234 14 May, 2017 Shortness of breath R06.02 ; Moderate episode of recurrent major depressive disorder F33.1 and Anxiety F41.9 [place] [address] [place] [address] [id number] [place] [address] 00592 -7763 14 Jan, 2017 Folliculitis L73.9 [place] [address] [place] [id number] [place] [address] 83001- 7113 23 May, 2016 control counseling Z30.09 [place] [address] 30068- 1079 15 Nov, 2015 Family planning, BCP ( control pills) maintenance Z30.41 [place] [address] 52080- 4605 August, [place] [address] [place] [id number] [place] [address] 77904- 3343 Apr, Encounter for counseling regarding contraception Z30.9 ; Genital herpes, unspecified A60.00 ; OCP (oral contraceptive pills) initiation Z30.011 and Routine screening for STI (sexually transmitted infection) Z11.3 [facility] [address] [facility] [id number] [address] 3[address] 14 Jul, 2014 [facility] [address] [facility] [id number] [address] Jul, [facility] [address] [facility] [id number] 7151 Apr, [facility] [address] [facility] [id number], [place] [address]- 1060 Apr, [facility] [address] [facility] [id number][place] 8304 Mar, [facility] [address] [facility] [id number][place] [address]- 0976 Mar, [facility] [address] [place] [id number] [address]- 9528 Jan, [facility] [address] [facility] [id number], [place] [address]- 8964 Jan, [facility] [address] [facility] [id number], [place] [address]- 6851 Sep, [facility] [address] [facility] [id number], [place] [address]- 3119 Sep, [facility] [address] [facility] [id number], [place] [address]- 8286 Jul, [facility] [address] [facility] [id number][place] 7079 Jul, [facility] [address] [facility] [id number], [place] [address]- 1770 Jun, [facility] [address] [facility] [id number]- 8799 Jun, [facility] [address] [facility] [id number][place]- 3788 May, [facility] [place] [facility] [address] [id number] [place] [address]- 1763 May, [facility] [place] [facility] [address] [id number] [place] [address]- 1936 May, [facility] [place] [facility] [address] [id number] [place] [address]- 0761 May, [facility] [place] [facility] [address] [id number] [place] [address]- 6763 May, [facility] [place] [facility] [address] [id number] [place] [address]- 7318 May, [facility] [place] [facility] [address] [id number] [place] [address]- 7783 May, [facility] [place] [facility] [address] [id number] [place] [address]- 3743 May, [facility] [place] [facility] [address] [id number] [place] [address]- 1545 May, [facility] [place] [facility] [address] [id number] [place] [address]- 0207 May, [facility] [place] [facility] [address] [id number] [place] [address]- 3909 Apr, [facility] [place] [facility] [address] [id number] [place] [address]- 5975 Apr, [facility] [place] [facility] [address] [id number] [place] [address]- 2649 Apr, [facility] [place] [facility] [address] [id number] [place] [address]- 6423 Apr, [facility] [place] [facility] [address] [id number] [place] [address]- 0994 Apr, [facility] [place] [facility] [address] [id number] [place] [address]- 7521 Apr, [facility] [place] [facility] [address] [id number] [place] [address]- 1692 07 Apr, 2013 [facility] [address] [id number] [place] [address]- 2159 Apr, [facility] [address] [id number] [place] [address]- 1510 Apr, [facility] [address] [id number] [place] [address]- 7573 Apr, [facility] [address] [id number] [place] [address]- 7858 Apr, [facility] [address] [id number] [place] [address]- 9772 Apr, [facility] [address] [id number] [place] [address]- 1695 Apr, [facility] [address] [id number] [place] [address]- 3154 Apr, [facility] [address] [id number] [place] [address]- 3093 Mar, [facility] [address] [id number] [place] [address]- 1079 Mar, [facility] [address] [id number] [place] [address]- 7427 Mar, [facility] [place] [facility] [address] [id number] [place] [address]- 1233 Mar, [facility] [address] [id number] [place] [address]- 9664 Feb, [facility] [place] [facility] [address] [id number] [place] [address]- 5443 Feb, [facility] [place] [facility] [address] [id number] [place] [address]- 2521 Feb, [facility] [address] [id number] [place] [address]- 6391 Feb, [facility] [address] [facility] [id number] [place] [address]- 7476 Nov, [facility] [address] [facility] [id number] [place] [address]- 6166 Sep, IMMUNIZATIONS No Known Immunizations SOCIAL HISTORY Never Assessed REASON FOR VISIT Rash that apperead saturday after cleaning a house, rash showed up on her face and spread to the neck and chest-Jordon MARVIN PLAN OF CARE VITAL SIGNS Height 67 in 2017-07-04 Weight 159.3 lbs 2017-07-04 Temperature 98.4 degrees Fahrenheit 2017-07-04 Heart Rate 78 bpm 2017-07-04 Respiratory Rate 18 2017-07-04 BMI 24.95 kg/m2 2017-07-04 Blood pressure systolic 126 mmHg 2017-07-04 Blood pressure diastolic 74 mmHg 2017-07-04 MEDICATIONS Medication Instructions Dosage Frequency Start Date End Date Duration Status Singulair 10 MG Orally Once a day 1 tablet in the evening 24h Active Cetirizine HCl 10 mg Orally Once a day 1 tablet 24h 14 May, 2017 Jul, 30 day(s) Active Triamcinolone Acetonide 0.1 % Externally Twice a day 1 application to affected area 12h Jun, 14 days Active Montelukast Sodium 10 mg Orally Once a day 1 tablet in the evening 24h May, 30 day(s) Not-Taking RESULTS No Results PROCEDURES No Known procedures INSTRUCTIONS MEDICATIONS ADMINISTERED No Known Medications MEDICAL (GENERAL) HISTORY Type Description Date Medical History genital herpes Medical History depression
--- OUTSIDE RECORDS SUMMARY | 2018-08-07 18:55 | XMS REPORT ---
Author Author KLEBER GREEN [facility] Address [address] [place] [address] Care Team Providers Care Chief Dispatcher Service Name Role Phone KLEBER GREEN Unavailable PROBLEMS Type Condition ICD9-CM Code VZR73-UF Code Onset Dates Condition Status SNOMED Code Problem ADD (attention deficit disorder) without hyperactivity F98.8 Active 05448433 Problem Generalized anxiety disorder F41.1 Active 65816695 Problem Genital herpes, unspecified A60.00 Active 07686284 Problem Moderate episode of recurrent major depressive disorder F33.1 Active 131846482 Problem Migraine with aura and without status migrainosus, not intractable G43.109 Active 6467278 ALLERGIES Substance Reaction Event Type Date Status Penicillin V Potassium rash Drug Allergy Jun, Active ENCOUNTERS Encounter Location Date Diagnosis [place] [address] [place] [id number] [place] [address] 88885- 3031 Nov, [place] [address] [place] [id number] [place] [address] 46763- 9796 Oct, [place] [address] [place] [id number] [place] [address] 17167- 0693 Oct, Generalized anxiety disorder F41.1 ; Moderate episode of recurrent major depressive disorder F33.1 and ADD (attention deficit disorder) without hyperactivity F98.8 [facility] [address] [place] [id number] [place] [address] 87842- 9651 Sep, ADD (attention deficit disorder) without hyperactivity F98.8 [facility] [address] [place] [id number] [place] [address] 90464- 8398 Sep, Generalized anxiety disorder F41.1 ; Moderate episode of recurrent major depressive disorder F33.1 and ADD (attention deficit disorder) without hyperactivity F98.8 [place] [address] [place] [id number] [place] [address] 52010- 8060 Sep, ADD (attention deficit disorder) without hyperactivity F98.8 [place] [address] [place] [id number] [place] [address] 61618- 0862 August, Generalized anxiety disorder F41.1 ; Moderate episode of recurrent major depressive disorder F33.1 and ADD (attention deficit disorder) without hyperactivity F98.8 [place] [address] [place] [id number] [place] [address] 23376- 5229 August, Generalized anxiety disorder F41.1 ; Moderate episode of recurrent major depressive disorder F33.1 and ADD (attention deficit disorder) without hyperactivity F98.8 [place] [address] [place] [id number] [place] [address] 81066- 3076 Jul, ADD (attention deficit disorder) without hyperactivity F98.8 [place] [address] [place] [id number] [place] [address] 67463- 6015 Jul, ADD (attention deficit disorder) without hyperactivity F98.8 [place] [address] [place] [id number] [place] [address] 45253- 4016 Jul, Generalized anxiety disorder F41.1 ; Moderate episode of recurrent major depressive disorder F33.1 and ADD (attention deficit disorder) without hyperactivity F98.8 [place] [address] [place] [address] 29157- 4502 Jun, Rash R21 [place] [address] [place] [id number] [place] [address] 38743- 2607 Jun, Generalized anxiety disorder F41.1 and ADD (attention deficit disorder) without hyperactivity F98.8 [facility] [address] [place] [id number] [place] [address] 17724 -7784 Jun, Skin lesion L98.9 [facility] [address] [place] [id number] [place] [address] 28683- 8054 Jun, Severe persistent reactive airway disease with acute exacerbation J45.51 [place] [address] [place] [address]- 4742 Jun, Generalized anxiety disorder F41.1 and ADD (attention deficit disorder) without hyperactivity F98.8 [facility] [place] [address] [place] [id number] [place] [address] 17317 -4585 16 May, 2017 Other specified bacterial agents as the cause of diseases classified elsewhere B96.89 and Acute pharyngitis due to other specified organisms J02.8 [place] [address] 28984- 7443 14 May, 2017 Generalized anxiety disorder F41.[address] 83054- 6895 14 May, 2017 Shortness of breath R06.02 ; Moderate episode of recurrent major depressive disorder F33.1 and Anxiety F41.9 [facility] [place] [address] [place] [id number] [place] [address] 74717 -4918 14 Jan, 2017 Folliculitis L73.9 [place] [address] 97049- 2244 23 May, 2016 control counseling Z30.[address] 79806- 8933 15 Nov, 2015 Family planning, BCP ( control pills) maintenance Z30.41 [place] [address] 68454- 2356 August, [place] [address] 64064- 6112 Apr, Encounter for counseling regarding contraception Z30.9 ; Genital herpes, unspecified A60.00 ; OCP (oral contraceptive pills) initiation Z30.011 and Routine screening for STI (sexually transmitted infection) Z11.3 [place] [address] [place] [id number] [place] [address] 04361- 7717 14 Jul, 2014 [place] [address] 39607- 1246 Jul, [facility] [address] [id number] [place] [address]- 4163 Apr, [facility] [place] [facility] [address] [id number] [place] [address]- 4894 Apr, [facility] [place] [facility] [address] [id number] [place] [address]- 9943 Mar, [facility] [place] [facility] [address] [id number] [place] [address]- 5781 Mar, [facility] [place] [facility] [address] [id number] [place] [address]- 0431 Jan, [facility] [place] [facility] [address] [id number] [place] [address]- 1382 Jan, [facility] [place] [facility] [address] [id number] [place] [address]- 9756 Sep, [facility] [place] [facility] [address] [id number] [place] [address]- 6457 Sep, [facility] [place] [facility] [address] [id number] [place] [address]- 2768 Jul, [facility] [place] [facility] [address] [id number] [place] [address]- 5663 Jul, [facility] [place] [facility] [address] [id number] [place] [address]- 7328 Jun, [facility] [place] [facility] [address] [id number] [address]- 2584 Jun, [facility] [place] [facility] [address] [id number] [place] [address]- 3504 May, [facility] [place] [facility] [address] [id number] [place] [address]- 5120 May, [facility] [place] [facility] [address] [id number] [place] 8969 May, [facility] [place] [facility] [address] [id number] [place] [address]- 9365 May, [facility] [place] [facility] [address] [id number] [place] [address]- 4976 18 May, 2013 [facility] [place] [facility] [address] [id number] [place] [address]- 0346 May, [facility] [place] [facility] [address] [id number] [place] [address]- 3136 May, [facility] [place] [facility] [address] [id number] [place] [address]- 7650 May, [facility] [place] [facility] [address] [id number] [place] [address]- 7781 May, [facility] [place] [facility] [address] [id number] [place] [address]- 5825 May, [facility] [place] [facility] [address] [facility] [id number] [place] [address]- 1489 Apr, [facility] [place] [facility] [address] [id number] [place] [address]- 3351 Apr, [facility] [place] [facility] [address] [id number] [place] [address]- 8551 Apr, [facility] [place] [facility] [address] [facility] [id number] [place] [address]- 4203 Apr, [facility] [place] [facility] [address] [id number] [place] [address]- 7870 Apr, [facility] [place] [facility] [address] [id number] [place] [address]- 8452 Apr, [facility] [place] [facility] [address] [id number] [place] [address]- 7716 Apr, [facility] [place] [facility] [address] [id number] [place] [address]- 0186 Apr, [facility] [place] [facility] [address] [id number] [place] [address]- 8210 Apr, [facility] [address] [id number] [place] [address]- 6423 Apr, [facility] [address] [facility] [id number] [place] [address]- 7242 Apr, [facility] [address] [facility] [id number] [place] 7028 Apr, [facility] [address] [facility] [id number] [place] [address]- 9264 Apr, [facility] [address] [facility] [id number] [place] [address]- 4910 Apr, [facility] [address] [facility] [id number] [place] [address]- 8628 Mar, [facility] [address] [facility] [id number] [place] [address]- 1449 Mar, [facility] [address] [facility] [id number] [place] [address]- 8867 Mar, [facility] [address] [facility] [id number] [place] [address]- 6465 Mar, [facility] [address] [facility] [id number] [place] [address]- 4484 Feb, [facility] [address] [facility] [id number] [place] [address]- 7908 Feb, [facility] [address] [facility] [id number] [place] [address]- 8612 Feb, [facility] [address] [facility] [id number] [place] [address]- 5142 Feb, [facility] [address] [facility] [id number] [place] [address]- 8463 Nov, [facility] [address] [facility] [id number] [place] 6893 Sep, IMMUNIZATIONS No Known Immunizations SOCIAL HISTORY Never Assessed REASON FOR VISIT sore, red area on her pubic bone. been there off and on for 2 weeks. denies any drainage. [email or web address] PLAN OF CARE Activity Details Follow Up prn Reason: VITAL SIGNS Height 67 in 2017-06-14 Weight 157.4 lbs 2017-06-14 Temperature 98.2 degrees Fahrenheit 2017-06-14 Heart Rate 84 bpm 2017-06-14 Respiratory Rate 20 2017-06-14 BMI 24.65 kg/m2 2017-06-14 Blood pressure systolic 114 mmHg 2017-06-14 Blood pressure diastolic 68 mmHg 2017-06-14 MEDICATIONS Medication Instructions Dosage Frequency Start Date End Date Duration Status Montelukast Sodium 10 mg Orally Once a day 1 tablet in the evening 24h May, 30 day(s) Not-Taking Bactrim DS 800-160 MG Orally Twice a day 1 tablet 12h Jun,Jun 10 day(s) Active Singulair 10 MG Orally Once a day 1 tablet in the evening 24h Active Cetirizine HCl 10 mg Orally Once a day 1 tablet 24h 14 May, 2017 Jul, 30 day(s) Active RESULTS No Results PROCEDURES No Known procedures INSTRUCTIONS MEDICATIONS ADMINISTERED No Known Medications MEDICAL (GENERAL) HISTORY Type Description Date Medical History genital herpes Medical History depression
--- OUTSIDE RECORDS SUMMARY | 2018-08-07 18:55 | XMS REPORT ---
Author Author OSMEL GARCIA [facility] Address [address] [place] [address] Care Team Providers Care Guide Travel Name Role Phone RADHAHEYDIOSMEL Unavailable PROBLEMS Type Condition ICD9-CM Code BRZ74-BL Code Onset Dates Condition Status SNOMED Code Problem ADD (attention deficit disorder) without hyperactivity F98.8 Active 29962131 Problem Generalized anxiety disorder F41.1 Active 37020691 Problem Genital herpes, unspecified A60.00 Active 48694212 Problem Moderate episode of recurrent major depressive disorder F33.1 Active 984034675 Problem Migraine with aura and without status migrainosus, not intractable G43.109 Active 2232572 ALLERGIES No Information ENCOUNTERS Encounter Location Date Diagnosis [place] [id number] [place] [address] 40082- 8554 Dec, [facility] [place] [id number] [place] [address] 17111- 5658 Dec, [place] [id number] [place] [address] 25945- 1196 Nov, [facility] [place] [id number] [place] [address] 02345- 4453 Oct, Generalized anxiety disorder F41.1 ; Moderate episode of recurrent major depressive disorder F33.1 and ADD (attention deficit disorder) without hyperactivity F98.8 [facility] [place] [id number] [place] [address] 32718- 2475 Oct, Generalized anxiety disorder F41.1 ; Moderate episode of recurrent major depressive disorder F33.1 and ADD (attention deficit disorder) without hyperactivity F98.8 [facility] [place] [id number] [place] [address] 71465- 4953 Sep, ADD (attention deficit disorder) without hyperactivity F98.8 [facility] [place] [address], [place] [address] 8165 Sep, Generalized anxiety disorder F41.1 ; Moderate episode of recurrent major depressive disorder F33.1 and ADD (attention deficit disorder) without hyperactivity F98.8 [facility] [place] [address], [place] [address] 3706 Sep, ADD (attention deficit disorder) without hyperactivity F98.8 [place] [id number] [place] [address] 29355- 9177 August, Generalized anxiety disorder F41.1 ; Moderate episode of recurrent major depressive disorder F33.1 and ADD (attention deficit disorder) without hyperactivity F98.8 [place] [address], [place] [address] 2663 August, Generalized anxiety disorder F41.1 ; Moderate episode of recurrent major depressive disorder F33.1 and ADD (attention deficit disorder) without hyperactivity F98.8 [facility] [place] [id number] [place] [address] 01373- 1874 Jul, ADD (attention deficit disorder) without hyperactivity F98.8 [facility] [place] [id number] [place] [address] 24888- 8515 Jul, ADD (attention deficit disorder) without hyperactivity F98.8 [place] [address], [place] [address]- 5093 Jul, Generalized anxiety disorder F41.1 ; Moderate episode of recurrent major depressive disorder F33.1 and ADD (attention deficit disorder) without hyperactivity F98.8 [facility] [place] [address], [place] [address]- 7885 Jun, Rash R21 [facility] [place] [id number] [place] [address] 21741- 5916 Jun, Generalized anxiety disorder F41.1 and ADD (attention deficit disorder) without hyperactivity F98.8 [facility] [address], [place] [address] 09 Jun, 2017 Skin lesion L98.9 [place] [id number] [place] [address] 76675- 2302 07 Jun, 2017 Severe persistent reactive airway disease with acute exacerbation J45.51 [place] [id number] [place] [address] 03128- 1562 01 Jun, 2017 Generalized anxiety disorder F41.1 and ADD (attention deficit disorder) without hyperactivity F98.8 [facility] [address] [address] -0893 16 May, 2017 Other specified bacterial agents as the cause of diseases classified elsewhere B96.89 and Acute pharyngitis due to other specified organisms J02.8 [place] [id number] [place] [address] 60256- 1489 14 May, 2017 Generalized anxiety disorder F41.1 [place] [address] 50524- 1131 14 May, 2017 Shortness of breath R06.02 ; Moderate episode of recurrent major depressive disorder F33.1 and Anxiety F41.9 [place] [id number] [place] [address] 21091 -9483 14 Jan, 2017 Folliculitis L73.9 [place] [id number] [place] [address] 79253- 8320 23 May, 2016 control counseling Z30.09 [place] [address] 84220- 0377 Nov, Family planning, BCP ( control pills) maintenance Z30.41 [place] [address] 50894- 7072 August, [place] [address] 14246- 6581 Apr, Encounter for counseling regarding contraception Z30.9 ; Genital herpes, unspecified A60.00 ; OCP (oral contraceptive pills) initiation Z30.011 and Routine screening for STI (sexually transmitted infection) Z11.3 [facility] [address] [id number] [place] [address]- 6511 14 Jul, 2014 [facility] [address] [id number] [place] [address]- 2913 Jul, [facility] [address] [facility] [id number] [place] [address]- 8908 Apr, [facility] [address] [id number], [place] [address]- 9695 Apr, [facility] [address] [id number] [place] [address]- 7705 Mar, [facility] [address] [id number] [place] [address]- 1202 Mar, [facility] [address] [id number] [place] [address]- 4936 Jan, [facility] [address] [id number], [place] [address]- 3679 Jan, [facility] [address] [id number], [place] [address]- 7151 Sep, [facility] [address] [id number], [place] [address]- 1004 Sep, [facility] [address] [id number], [place] [address]- 8631 Jul, [facility] [place] [facility] [address] [id number], [place] [address]- 4086 Jul, [facility] [place] [facility] [address] [id number], [place] [address]- 3051 Jun, [facility] [place] [facility] [address] [id number], [place] [address]- 8421 Jun, [facility] [place] [facility] [address] [id number], [place] [address]- 8931 May, [facility] [place] [facility] [address] [id number] [place] [address]- 2131 May, [facility] [place] [facility] [address] [id number] [place] [address]- 9876 May, [facility] [place] [facility] [address] [id number] [place] [address]- 6966 May, [facility] [place] [facility] [address] [id number] [place] [address]- 6216 May, [facility] [place] [facility] [address] [id number] [place] [address]- 8531 May, [facility] [place] [facility] [address] [id number] [place] [address]- 3143 May, [facility] [place] [facility] [address] [facility] [id number] [place] [address]- 9525 May, [facility] [place] [facility] [address] [id number] [place] [address]- 7886 May, [facility] [place] [facility] [address] [id number] [place] [address]- 5472 May, [facility] [place] [facility] [address] [facility] [id number] [place] [address]- 9995 Apr, [facility] [place] [facility] [address] [id number] [place] [address]- 4702 Apr, [facility] [place] [facility] [address] [id number] [place] [address]- 7144 Apr, [facility] [place] [facility] [address] [id number] [place] [address]- 3354 Apr, [facility] [place] [facility] [address] [id number] [place] [address]- 4419 Apr, [facility] [place] [facility] [address] [id number] [place] [address]- 8655 Apr, [facility] [place] [facility] [address] [id number] [place] [address]- 8095 07 Apr, 2013 [facility] [place] [facility] [address] [id number] [place] [address]- 0000 Apr, [facility] [place] [facility] [address] [id number] [place] [address]- 9196 Apr, [facility] [place] [facility] [address] [id number] [place] [address]- 3787 Apr, [facility] [place] [facility] [address] [id number] [place] [address]- 3807 Apr, [facility] [place] [facility] [address] [id number] [place] [address]- 4678 Apr, [facility] [place] [facility] [address] [id number] [place] [address]- 5809 Apr, [facility] [place] [facility] [address] [id number] [place] [address]- 5552 Apr, [facility] [place] [facility] [address] [id number] [place] [address]- 1527 Mar, [facility] [place] [facility] [address] [id number] [place] [address]- 3568 Mar, [facility] [place] [facility] [address] [id number] [place] [address]- 3385 Mar, [facility] [place] [facility] [address] [id number], [place] [address]- 6082 Mar, [facility] [place] [facility] [address] [id number], [place] [address]- 9403 Feb, [facility] [place] [facility] [address] [id number] [place] [address]- 1368 Feb, [facility] [place] [facility] [address] [id number] [place] [address]- 6424 Feb, [facility] [place] [facility] [address] [id number] [place] [address]- 1016 Feb, [facility] [place] [facility] [address] [facility] [id number] [place] [address]- 1056 Nov, [facility] [place] [address] [facility] [id number] [place] [address] Sep, IMMUNIZATIONS No Known Immunizations SOCIAL HISTORY Never Assessed REASON FOR VISIT Follow-up Anxiety PLAN OF CARE Activity Details Follow Up 2 Weeks Reason: Follow-up VITAL SIGNS MEDICATIONS Unknown Medications RESULTS No Results PROCEDURES Procedure Date Ordered Result Body Site Psychotherapy, patient &/family, 45 minutes, established patient July 11, 2017 INSTRUCTIONS MEDICATIONS ADMINISTERED No Known Medications MEDICAL (GENERAL) HISTORY Type Description Date Medical History genital herpes Medical History depression
--- OUTSIDE RECORDS SUMMARY | 2018-08-07 18:55 | XMS REPORT ---
Author Author FARIDA DE LUNA Organization [facility] Address [address] [place] [address] Care Team Providers Care Electronic Tech Name Role Phone FARIDA DE LUNA Unavailable PROBLEMS Type Condition ICD9-CM Code ZCK02-TE Code Onset Dates Condition Status SNOMED Code Problem ADD (attention deficit disorder) without hyperactivity F98.8 Active 70621439 Problem Generalized anxiety disorder F41.1 Active 66957338 Problem Genital herpes, unspecified A60.00 Active 07928134 Problem Moderate episode of recurrent major depressive disorder F33.1 Active 503337032 Problem Migraine with aura and without status migrainosus, not intractable G43.109 Active 8171627 ALLERGIES Substance Reaction Event Type Date Status Penicillin V Potassium rash Drug Allergy Jun, Active ENCOUNTERS Encounter Location Date Diagnosis [place] [id number] [place] [address] 59942- 4909 Dec, [facility] [id number] [place] [address] 72121- 8247 Dec, [facility] [address] [place] [address] 78150- 3725 Nov, [facility] [id number] [place] [address] 96600- 1016 Oct, Generalized anxiety disorder F41.1 ; Moderate episode of recurrent major depressive disorder F33.1 and ADD (attention deficit disorder) without hyperactivity F98.8 [facility] [id number] [place] [address] 50763- 1164 Oct, Generalized anxiety disorder F41.1 ; Moderate episode of recurrent major depressive disorder F33.1 and ADD (attention deficit disorder) without hyperactivity F98.8 [facility] [address] [place] [address] 58124- 0479 Sep, ADD (attention deficit disorder) without hyperactivity F98.8 [facility] [address], [place] [address]- 8633 Sep, Generalized anxiety disorder F41.1 ; Moderate episode of recurrent major depressive disorder F33.1 and ADD (attention deficit disorder) without hyperactivity F98.8 [facility] [address] [place] [address] 08768- 9535 Sep, ADD (attention deficit disorder) without hyperactivity F98.8 [place] [address] [place] [address] 02796- 4546 August, Generalized anxiety disorder F41.1 ; Moderate episode of recurrent major depressive disorder F33.1 and ADD (attention deficit disorder) without hyperactivity F98.8 [place] [address], [place] [address]- 7828 August, Generalized anxiety disorder F41.1 ; Moderate episode of recurrent major depressive disorder F33.1 and ADD (attention deficit disorder) without hyperactivity F98.8 [facility] [address], [place] [address]- 5193 Jul, ADD (attention deficit disorder) without hyperactivity F98.8 [facility] [address], [place] [address]- 3848 Jul, ADD (attention deficit disorder) without hyperactivity F98.8 [place] [address], [place] [address]- 9949 Jul, Generalized anxiety disorder F41.1 ; Moderate episode of recurrent major depressive disorder F33.1 and ADD (attention deficit disorder) without hyperactivity F98.8 [place] [address], [place] [address]- 5148 Jun, Rash R21 [facility] [address] [place] [id number], [place] [address]- 9716 Jun, Generalized anxiety disorder F41.1 and ADD (attention deficit disorder) without hyperactivity F98.8 [facility] [address] [place] [address] 82219 -6750 09 Jun, 2017 Skin lesion L98.9 [place] [address] 14347- 5598 07 Jun, 2017 Severe persistent reactive airway disease with acute exacerbation J45.51 [place] [id number] [place] [address] 34555- 2194 Jun, Generalized anxiety disorder F41.1 and ADD (attention deficit disorder) without hyperactivity F98.8 [facility] [place] [id number] [place] [address] 11789 -5964 16 May, 2017 Other specified bacterial agents as the cause of diseases classified elsewhere B96.89 and Acute pharyngitis due to other specified organisms J02.8 [place] [id number] [place] [address] 00552- 7144 14 May, 2017 Generalized anxiety disorder F41.1 [place] [address] 28009- 2932 14 May, 2017 Shortness of breath R06.02 ; Moderate episode of recurrent major depressive disorder F33.1 and Anxiety F41.9 [facility] [place] [id number] [place] [address] 80521 -0965 14 Jan, 2017 Folliculitis L73.9 [place] [id number] [place] [address] 85927- 8946 23 May, 2016 control counseling Z30.09 [place] [address] 83317- 8993 15 Nov, 2015 Family planning, BCP ( control pills) maintenance Z30.41 [place] [address] 56310- 2174 August, [place] [id number] [place] [address] 01906- 4251 Apr, Encounter for counseling regarding contraception Z30.9 ; Genital herpes, unspecified A60.00 ; OCP (oral contraceptive pills) initiation Z30.011 and Routine screening for STI (sexually transmitted infection) Z11.3 [facility] [address] [facility] [id number]- 9363 14 Jul, 2014 [facility] [address] [facility] [place] [id number], [place] [address]- 5602 13 Jul, 2014 [facility] [address] [facility] [place] [id number], [place] [address]- 8606 Apr, [facility] [address] [facility] [place] [id number], [place] [address]- 7374 Apr, [facility] [address] [place] [id number] [place] [address]- 3196 Mar, [facility] [id number], [place] [address]- 5930 Mar, [facility] [address], [place] [address]- 7067 Jan, [facility] [id number], [place] [address]- 4290 Jan, [facility] [id number], [place] [address]- 7471 Sep, [facility] [id number], [place] [address]- 1009 Sep, [facility] [address] [facility] [place] [id number], [place] [address]- 5777 Jul, [facility] [address] [facility] [place] [id number], [place] [address]- 8993 Jul, [facility] [address] [facility] [place] [id number][place]50[place]- 3291 Jun, [facility] [address] [facility] [place] [id number][place]- 2371 Jun, [facility] [id number], [place] [address]- 4041 May, [facility] [place] [facility] [address] [id number] [place] [address]- 4208 May, [facility] [place] [facility] [address] [id number] [place] [address]- 6376 May, [facility] [place] [facility] [address] [facility] [place] [id number] [place] [address]- 3396 May, [facility] [place] [facility] [address] [id number] [place] [address]- 5954 May, [facility] [place] [facility] [address] [id number] [place] [address]- 7606 May, [facility] [place] [facility] [address] [id number] [place] [address]- 5989 May, [facility] [place] [facility] [address] [facility] [place] [id number] [place] [address]- 9965 May, [facility] [place] [facility] [address] [facility] [place] [id number] [place] [address]- 7883 May, [facility] [place] [facility] [address] [facility] [place] [id number] [place] [address]- 4460 May, [facility] [place] [facility] [address] [facility] [place] [id number] [place] [address]- 6952 Apr, [facility] [place] [facility] [address] [facility] [place] [id number] [place] [address]- 5266 Apr, [facility] [place] [facility] [address] [id number] [place] [address]- 0564 Apr, [facility] [place] [facility] [address] [id number] [place] [address]- 8885 Apr, [facility] [place] [facility] [address] [facility] [place] [id number] [place] [address]- 3403 Apr, [facility] [place] [facility] [address] [facility] [place] [id number], [place] [address]- 0929 Apr, [facility] [place] [facility] [address] [id number] [place] [address]- 6727 Apr, [facility] [place] [facility] [address] [id number] [place] [address]- 0470 Apr, [facility] [place] [facility] [address] [id number] [place] [address]- 8819 Apr, [facility] [place] [facility] [address] [id number] [place] [address]- 9583 Apr, [facility] [place] [facility] [address] [id number] [place] [address]- 5186 Apr, [facility] [place] [facility] [address] [id number] [place] [address]- 1849 Apr, [facility] [place] [facility] [address] [id number] [place] [address]- 7914 Apr, [facility] [place] [facility] [address] [id number] [place] [address]- 0018 Apr, [facility] [place] [facility] [address] [id number] [place] [address]- 7018 Mar, [facility] [place] [facility] [address] [id number] [place] [address]- 5746 Mar, [facility] [place] [facility] [address] [id number] [place] [address]- 5194 Mar, [facility] [place] [facility] [address] [id number] [place] [address]- 8799 Mar, [facility] [place] [facility] [address] [id number] [place] [address]- 7952 Feb, [facility] [place] [facility] [address] [id number] [place] [address]- 4122 Feb, [facility] [place] [facility] [address] [id number] [place] [address]- 0115 Feb, [facility] [place] [facility] [address] [id number] [place] [address]- 8846 Feb, [facility] [address] [facility] [place] [id number] [place] [address]- 2546 Nov, [facility] [address] [facility] [place] [id number] [place] [address]- 2546 Sep, IMMUNIZATIONS No Known Immunizations SOCIAL HISTORY Never Assessed REASON FOR VISIT Congestion, PT has been having shortness of breath. PT notes the medication helped from her last appt. but since she has been at home more the symptoms have reoccured. PT notes her fiance has been experiencing the same symtpoms being at home. -Benson MARVIN PLAN OF CARE Activity Details Follow Up prn Reason: VITAL SIGNS Height 67 in 2017-06-12 Weight 158 lbs 2017-06-12 Temperature 98.3 degrees Fahrenheit 2017-06-12 Heart Rate 80 bpm 2017-06-12 Respiratory Rate 20 2017-06-12 Oximetry on room air:99 % 2017-06-12 BMI 24.74 kg/m2 2017-06-12 Blood pressure systolic 110 mmHg 2017-06-12 Blood pressure diastolic 65 mmHg 2017-06-12 MEDICATIONS Medication Instructions Dosage Frequency Start Date End Date Duration Status Cetirizine HCl 10 mg Orally Once a day 1 tablet 24h May, Jul, 30 day(s) Active Montelukast Sodium 10 mg Orally Once a day 1 tablet in the evening 24h May, 30 day(s) Not-Taking RESULTS No Results PROCEDURES No Known procedures INSTRUCTIONS MEDICATIONS ADMINISTERED No Known Medications MEDICAL (GENERAL) HISTORY Type Description Date Medical History genital herpes Medical History depression
--- OUTSIDE RECORDS SUMMARY | 2018-08-07 18:56 | XMS REPORT ---
Author SUKUMAR Guadalupe [facility] eClinicalWorks Address Unknown Phone Unavailable Care Team Providers Care [employer] Manager Name Role Phone SUKUMAR GRIER CP Unavailable Allergies, Adverse Reactions, Alerts Substance Reaction Event Type Penicillin V Potassium Info Not Available Drug Allergy Problems Problem Type Condition Code Onset Dates Condition Status Problem Genital herpes, unspecified A60.00 Active Problem OCP (oral contraceptive pills) initiation Z30.011 Active Problem Major depressive disorder, single episode, moderate F32.1 Active Assessment Family planning, BCP ( control pills) maintenance Z30.41 Active Medications Medication Code System Code Instructions Start Date End Date Status Dosage Ortho Tri-Cyclen Lo [facility] [id number] 0.18/0.215/0.25 MG-25 MCG Orally Once a day May 05, 2015 1 tablet Procedures Procedure Coding System Code Date Office Visit, Est Pt., Level 3 CPT-4 46763 Nov 21, 2015 URINE TEST CPT-4 09525 Nov 21, 2015 Vital Signs Date/Time: Nov 21, 2015 Blood Pressure Systolic 102 mmHg Weight 146.0 lbs Height 67 in BMI 22.86 Index Blood Pressure Diastolic 70 mmHg Results No Known Results Summary Purpose eClinicalWorks Submission
--- OUTSIDE RECORDS SUMMARY | 2018-08-07 18:56 | XMS REPORT ---
Author Author JOS RIBEIRO Organization [facility] Address [address] [place] [address] Care Team Providers Care Telemetry Monitor Name Role Phone JOS RIBEIRO Unavailable PROBLEMS Type Condition ICD9-CM Code ZXR00-BD Code Onset Dates Condition Status SNOMED Code Problem ADD (attention deficit disorder) without hyperactivity F98.8 Active 97938290 Problem Generalized anxiety disorder F41.1 Active 91232375 Problem Genital herpes, unspecified A60.00 Active 97174543 Problem Moderate episode of recurrent major depressive disorder F33.1 Active 234316757 Problem Migraine with aura and without status migrainosus, not intractable G43.109 Active 2072539 ALLERGIES Substance Reaction Event Type Date Status Penicillin V Potassium Unknown Drug Allergy Jan, Active ENCOUNTERS Encounter Location Date Diagnosis [place] [address] [place] [id number] [place] [address] 25366- 7113 Sep, [facility] [address] [address] August, [place] [address] [address] [id number] [place] [address] 47793- 4411 August, [facility] [address] [address]- [address] Jul, ADD (attention deficit disorder) without hyperactivity F98.8 [facility] [address] [address]39- 46[address] Jul, ADD (attention deficit disorder) without hyperactivity F98.8 [facility] [address] [address]- [address] Jul, Generalized anxiety disorder F41.1 ; Moderate episode of recurrent major depressive disorder F33.1 and ADD (attention deficit disorder) without hyperactivity F98.8 [place] [id number] [place] [address] 79382- 6726 29 Jun, 2017 Rash R21 [place] [address] 13[address]- 1120 19 Jun, 2017 Generalized anxiety disorder F41.1 and ADD (attention deficit disorder) without hyperactivity F98.8 [facility] [place] [id number] [place] [address] 81760 -7321 09 Jun, 2017 Skin lesion L98.9 [place] [address] [address] [id number] [place] [address] 98728- 5632 07 Jun, 2017 Severe persistent reactive airway disease with acute exacerbation J45.[address] [address]- [address] 01 Jun, 2017 Generalized anxiety disorder F41.1 and ADD (attention deficit disorder) without hyperactivity F98.8 [place] [id number] [place] [address] 07387 -1562 16 May, 2017 Other specified bacterial agents as the cause of diseases classified elsewhere B96.89 and Acute pharyngitis due to other specified organisms J02.8 [place] [address] [address] [id number] [place] [address] 51368- 4923 14 May, 2017 Generalized anxiety disorder F41.1 [place] [address] [place] [address] [id number] [place] [address] 24990- 8267 14 May, 2017 Shortness of breath R06.02 ; Moderate episode of recurrent major depressive disorder F33.1 and Anxiety F41.9 [facility] [place] [address] [address] [id number] [place] [address] 04825 -0668 14 Jan, 2017 Folliculitis L73.9 [place] [address] [place] [address] [id number] [place] [address] 43945- 6288 23 May, 2016 control counseling Z30.09 [place] [id number] [place] [address] 93867- 5510 15 Nov, 2015 Family planning, BCP ( control pills) maintenance Z30.41 [facility] [address], [place] [address] August, [facility] [id number] [place] [address] 85582- 8762 28 Apr, 2015 Encounter for counseling regarding contraception Z30.9 ; Genital herpes, unspecified A60.00 ; OCP (oral contraceptive pills) initiation Z30.011 and Routine screening for STI (sexually transmitted infection) Z11.3 [facility] [address], [place] [address] 9063 14 Jul, 2014 [facility] [address] [id number] [place] [address] 96402- 6609 Jul, [facility] [id number] [place] [address] 53675- 0122 Apr, [facility] [id number] [place] [address] 74808- 9266 Apr, [facility] [address], [place] [address] 3515 Mar, [facility] [address], [place] [address] 2793 Mar, [facility] [address], [place] [address]- 7394 Jan, [facility] [address], [place] [address]- 8343 Jan, [facility] [address], [place] [address]- 6014 Sep, [facility] [address], [place] [address]- 3827 Sep, [facility] [address], [place] [address]- 8468 Jul, [facility] [address], [place] [address]- 8268 Jul, [facility] [place] [facility] [address] [id number] [place] [address] 2010 Jun, [facility] [place] [facility] [address] [id number] [place] [address]- 0577 Jun, [facility] [place] [facility] [address] [id number] [place] [address]- 3319 May, [facility] [place] [facility] [address] [id number] [place] [address]- 8445 May, [facility] [place] [facility] [address] [id number] [place] [address]- 6263 May, [facility] [place] [facility] [address] [id number] [place] [address]- 0838 May, [facility] [place] [facility] [address] [id number] [place] [address]- 9126 May, [facility] [place] [facility] [address] [id number] [place] [address]- 2605 May, [facility] [place] [facility] [address] [id number] [place] [address]- 6775 May, [facility] [place] [facility] [address] [id number] [place] [address]- 3129 May, [facility] [place] [facility] [address] [id number] [place] [address]- 5142 May, [facility] [place] [facility] [address] [id number] [place] [address]- 2131 May, [facility] [place] [facility] [address] [id number] [place] [address]- 6993 Apr, [facility] [place] [facility] [address] [id number] [place] [address]- 2589 Apr, [facility] [place] [facility] [address] [id number] [place] [address]- 3510 Apr, [facility] [place] [facility] [address] [id number] [place] [address]- 2360 Apr, [facility] [address] [id number] [place] [address]- 2332 Apr, [facility] [address] [id number] [place] [address]- 5707 Apr, [facility] [address] [id number] [place] [address]- 5940 Apr, [facility] [address] [id number] [place] [address]- 8475 Apr, [facility] [address] [id number] [place] [address]- 7906 Apr, [facility] [address] [id number] [place] [address]- 6084 Apr, [facility] [address] [id number] [place] [address]- 7344 Apr, [facility] [address] [id number] [place] [address]- 4587 Apr, [facility] [address] [id number] [place] [address]- 0176 Apr, [facility] [address] [id number] [place] [address]- 3414 Apr, [facility] [address] [id number] [place] [address]- 3365 Mar, [facility] [address] [id number] [place] [address]- 0076 Mar, [facility] [place] [facility] [address] [id number] [place] [address]- 8003 Mar, [facility] [place] [facility] [address] [id number] [place] [address]- 9876 Mar, [facility] [address] [id number] [place] [address]- 2472 Feb, [facility] [address] [facility] [id number] [address]- 1736 Feb, [facility] [address] [facility] [id number], [place] [address]- 6596 Feb, [facility] [address] [facility] [id number], [place] [address]- 6936 Feb, [facility] [address] [facility] [id number], [place] [address]- 2546 Nov, [facility] [address] [facility] [id number], [place] [address]- 6226 Sep, IMMUNIZATIONS No Known Immunizations SOCIAL HISTORY Never Assessed REASON FOR VISIT red, painful area on the right side of her bikini line. pt reports it is located under her right buttocks cheek. denies any drainage from this area. reports it has been there for 3 months. has been small...noticed it has become larger in size. didnt really start hurting until last noc. [email or web address] PLAN OF CARE Activity Details Follow Up prn Reason: VITAL SIGNS Height 67 in 2017-01-19 Weight 156.4 lbs 2017-01-19 Temperature 98.1 degrees Fahrenheit 2017-01-19 Heart Rate 82 bpm 2017-01-19 Respiratory Rate 20 2017-01-19 BMI 24.49 kg/m2 2017-01-19 Blood pressure systolic 112 mmHg 2017-01-19 Blood pressure diastolic 68 mmHg 2017-01-19 MEDICATIONS Medication Instructions Dosage Frequency Start Date End Date Duration Status Clindamycin HCl 300 MG Orally 2 times a day 1 capsule 12h Jan, Jan, 07 days Active Ortho Micronor 0.35 MG Orally Once a day 1 tablet 24h May, 28 day(s) Active RESULTS No Results PROCEDURES No Known procedures INSTRUCTIONS MEDICATIONS ADMINISTERED No Known Medications MEDICAL (GENERAL) HISTORY Type Description Date Medical History genital herpes Medical History depression
--- OUTSIDE RECORDS SUMMARY | 2018-08-07 18:56 | XMS REPORT ---
Author Author OSMEL GARCIA Organization [facility] Address [address] [place] [address] Care Team Providers Care Manager Packaging Name Role Phone RADHAHEYDIOSMEL Unavailable PROBLEMS Type Condition ICD9-CM Code WSQ47-UZ Code Onset Dates Condition Status SNOMED Code Problem ADD (attention deficit disorder) without hyperactivity F98.8 Active 90606449 Problem Generalized anxiety disorder F41.1 Active 44720344 Problem Genital herpes, unspecified A60.00 Active 81400550 Problem Moderate episode of recurrent major depressive disorder F33.1 Active 406623193 Problem Migraine with aura and without status migrainosus, not intractable G43.109 Active 4978736 ALLERGIES No Information ENCOUNTERS Encounter Location Date Diagnosis [place] [address] [place] [address] [id number] [place] [address] 35449- 0517 Nov, [place] [address] [place] [id number] [place] [address] 20949- 6619 Oct, [place] [address] [place] [id number] [place] [address] 35031- 9226 Oct, Generalized anxiety disorder F41.1 ; Moderate episode of recurrent major depressive disorder F33.1 and ADD (attention deficit disorder) without hyperactivity F98.8 [place] [address] [place] [address] [id number] [place] [address] 84368- 1040 Sep, ADD (attention deficit disorder) without hyperactivity F98.8 [place] [address] [place] [address] [id number] [place] [address] 25934- 5395 Sep, Generalized anxiety disorder F41.1 ; Moderate episode of recurrent major depressive disorder F33.1 and ADD (attention deficit disorder) without hyperactivity F98.8 [place] [address] [place] [address] [id number] [place] [address] 15178- 0629 Sep, ADD (attention deficit disorder) without hyperactivity F98.8 [facility] [address], [place] [address]- 4095 August, Generalized anxiety disorder F41.1 ; Moderate episode of recurrent major depressive disorder F33.1 and ADD (attention deficit disorder) without hyperactivity F98.8 [facility] [address], [place] [address]- 7795 August, Generalized anxiety disorder F41.1 ; Moderate episode of recurrent major depressive disorder F33.1 and ADD (attention deficit disorder) without hyperactivity F98.8 [facility] [address] [place] [address] [id number] [place] [address] 21998- 3007 Jul, ADD (attention deficit disorder) without hyperactivity F98.8 [facility] [address] [place] [address] [id number] [place] [address] 00614- 5062 Jul, ADD (attention deficit disorder) without hyperactivity F98.8 [place] [address] [place] [address] [id number] [place] [address] 02038- 2261 Jul, Generalized anxiety disorder F41.1 ; Moderate episode of recurrent major depressive disorder F33.1 and ADD (attention deficit disorder) without hyperactivity F98.8 [facility] [address] [place] [address] 93114- 8489 Jun, Rash R21 [facility] [address] [place] [address] [id number] [place] [address] 24064- 6196 Jun, Generalized anxiety disorder F41.1 and ADD (attention deficit disorder) without hyperactivity F98.8 [facility] [address], [place] [address] Jun, Skin lesion L98.9 [facility] [address] [place] [address] [id number] [place] [address] 16079- 1649 Jun, Severe persistent reactive airway disease with acute exacerbation J45.51 [facility] [address] [place] [address] [id number] [address]- 7546 Jun, Generalized anxiety disorder F41.1 and ADD (attention deficit disorder) without hyperactivity F98.8 [facility] [address] [place] [address] 04890 -5172 16 May, 2017 Other specified bacterial agents as the cause of diseases classified elsewhere B96.89 and Acute pharyngitis due to other specified organisms J02.8 [place] [address] [place] [address] [id number] [place] [address] 58561- 2345 14 May, 2017 Generalized anxiety disorder F41.1 [place] [address] [place] [address] [id number] [place] [address] 14781- 0069 14 May, 2017 Shortness of breath R06.02 ; Moderate episode of recurrent major depressive disorder F33.1 and Anxiety F41.9 [facility] [address] [place] [address] [id number] [place] [address] 72443 -7930 14 Jan, 2017 Folliculitis L73.9 [place] [address] [place] [address] [id number] [place] [address] 66868- 4933 23 May, 2016 control counseling Z30.09 [place] [address] [place] [address] [id number] [place] [address] 04646- 8467 15 Nov, 2015 Family planning, BCP ( control pills) maintenance Z30.41 [place] [address] [place] [address] [id number] [place] [address] 55505- 7649 August, [place] [address] [place] [address] [id number] [place] [address] 87798- 9236 Apr, Encounter for counseling regarding contraception Z30.9 ; Genital herpes, unspecified A60.00 ; OCP (oral contraceptive pills) initiation Z30.011 and Routine screening for STI (sexually transmitted infection) Z11.3 [place] [address] [place] [address] [id number] [place] [address] 49128- 6014 14 Jul, 2014 [place] [address] [place] [address] [id number] [place] [address] 85600- 2845 13 Jul, 2014 [place] [address] [place] [address] [id number] [place] [address] 25483- 3271 Apr, [facility] [place] [facility] [address] [id number] [place] [address]- 3328 Apr, [facility] [place] [facility] [address] [id number] [place] [address]- 3060 Mar, [facility] [place] [facility] [address] [id number] [place] [address]- 4828 Mar, [facility] [place] [facility] [address] [id number] [place] [address]- 6963 Jan, [facility] [place] [facility] [address] [id number] [place] [address]- 4569 Jan, [facility] [place] [facility] [address] [id number] [place] [address]- 0285 Sep, [facility] [place] [facility] [address] [id number] [place] [address]- 5867 Sep, [facility] [place] [facility] [address] [id number] [place] [address]- 3671 Jul, [facility] [place] [facility] [address] [id number] [place] [address]- 3177 Jul, [facility] [place] [facility] [address] [id number] [place] [address]- 6777 Jun, [facility] [place] [facility] [address] [id number] [place] [address]- 5183 Jun, [facility] [place] [facility] [address] [id number], [place] [address]- 7908 May, [facility] [place] [facility] [address] [id number] [place] [address]- 8779 May, [facility] [place] [facility] [address] [id number] [place] 8744 May, [facility] [place] [facility] [address] [id number] [place] [address]- 3192 May, [facility] [place] [facility] [address] [id number] [place] [address]- 2166 18 May, 2013 [facility] [place] [facility] [address] [id number] [place] [address]- 0376 May, [facility] [place] [facility] [address] [id number] [place] [address]- 7336 May, [facility] [place] [facility] [address] [id number] [place] [address]- 6926 May, [facility] [place] [facility] [address] [id number] [place] [address]- 9390 May, [facility] [place] [facility] [address] [id number] [place] [address]- 0121 May, [facility] [place] [facility] [address] [id number] [place] [address]- 3970 Apr, [facility] [place] [facility] [address] [id number] [place] [address]- 9459 Apr, [facility] [place] [facility] [address] [id number] [place] [address]- 6592 Apr, [facility] [place] [facility] [address] [id number] [place] [address]- 8816 Apr, [facility] [place] [facility] [address] [id number] [place] [address]- 5157 Apr, [facility] [place] [facility] [address] [id number] [place] [address]- 2708 Apr, [facility] [place] [facility] [address] [id number] [place] [address]- 7494 Apr, [facility] [place] [facility] [address] [id number] [place] [address]- 4505 Apr, [facility] [place] [facility] [address] [id number] [place] [address]- 2563 Apr, [facility] [place] [facility] [address] [id number] [place] [address]- 9245 Apr, [facility] [address] [place] [id number] 8736 Apr, [facility] [address], [place] [address]- 2876 Apr, [facility] [address] [place] [id number], [place] [address]- 5225 Apr, [facility] [address], [place] [address]- 4095 Apr, [facility] [address] [place] [id number] 5156 Mar, [facility] [address] 9107 Mar, [facility] [address] 1300 Mar, [facility] [address], [place] [address]- 3149 Mar, [facility] [address], [place] [address]- 1834 Feb, [facility] [address], [place] [address]- 5411 Feb, [facility] [address] [id number]- 4961 Feb, [facility] [address] [id number], [place] [address]- 1641 Feb, [facility] [address] [id number], [place] [address]- 1341 Nov, [facility] [address], [place] [address]- 7712 Sep, IMMUNIZATIONS No Known Immunizations SOCIAL HISTORY Never Assessed REASON FOR VISIT intake PLAN OF CARE Activity Details Follow Up 2 Weeks Reason: Follow-up VITAL SIGNS MEDICATIONS Medication Instructions Dosage Frequency Start Date End Date Duration Status Montelukast Sodium 10 mg Orally Once a day 1 tablet in the evening 24h May, 30 day(s) Active Cetirizine HCl 10 mg Orally Once a day 1 tablet 24h May, Jul, 30 day(s) Active RESULTS No Results PROCEDURES Procedure Date Ordered Result Body Site Psych diagnostic evaluation, established patient May 22, 2017 INSTRUCTIONS MEDICATIONS ADMINISTERED No Known Medications MEDICAL (GENERAL) HISTORY Type Description Date Medical History genital herpes Medical History depression
--- OUTSIDE RECORDS SUMMARY | 2018-08-07 18:56 | XMS REPORT ---
Author Author OSMEL GARCIA Organization [facility] Address [address] [place] [address] Care Team Providers Care Personalized Living Manager Name Role Phone RADHAHEYDIOSMEL Unavailable PROBLEMS Type Condition ICD9-CM Code EEW22-GH Code Onset Dates Condition Status SNOMED Code Problem ADD (attention deficit disorder) without hyperactivity F98.8 Active 73288318 Problem Generalized anxiety disorder F41.1 Active 78487685 Problem Genital herpes, unspecified A60.00 Active 33043706 Problem Moderate episode of recurrent major depressive disorder F33.1 Active 221938188 Problem Migraine with aura and without status migrainosus, not intractable G43.109 Active 0273572 ALLERGIES No Information ENCOUNTERS Encounter Location Date Diagnosis [place] [id number] [place] [address] 94313- 6011 Nov, [place] [id number] [place] [address] 02353- 7555 Oct, [place] [id number] [place] [address] 13438- 3630 Oct, Generalized anxiety disorder F41.1 ; Moderate episode of recurrent major depressive disorder F33.1 and ADD (attention deficit disorder) without hyperactivity F98.8 [place] [id number] [place] [address] 05994- 8293 Sep, ADD (attention deficit disorder) without hyperactivity F98.8 [place] [id number] [place] [address] 69120- 8232 Sep, Generalized anxiety disorder F41.1 ; Moderate episode of recurrent major depressive disorder F33.1 and ADD (attention deficit disorder) without hyperactivity F98.8 [place] [id number] [place] [address] 81731- 6237 Sep, ADD (attention deficit disorder) without hyperactivity F98.8 [facility] [address] [address] 3[address] August, Generalized anxiety disorder F41.1 ; Moderate episode of recurrent major depressive disorder F33.1 and ADD (attention deficit disorder) without hyperactivity F98.8 [facility] [id number] [address] 4802 August, Generalized anxiety disorder F41.1 ; Moderate episode of recurrent major depressive disorder F33.1 and ADD (attention deficit disorder) without hyperactivity F98.8 [facility] [id number] [place] [address] 55795- 7412 Jul, ADD (attention deficit disorder) without hyperactivity F98.8 [facility] [id number] [place] [address] 17247- 0753 Jul, ADD (attention deficit disorder) without hyperactivity F98.8 [place] [id number] [place] [address] 31062- 0259 Jul, Generalized anxiety disorder F41.1 ; Moderate episode of recurrent major depressive disorder F33.1 and ADD (attention deficit disorder) without hyperactivity F98.8 [facility] [address] [place] [address] 78911- 3053 Jun, Rash R21 [facility] [id number] [place] [address] 06380- 7199 Jun, Generalized anxiety disorder F41.1 and ADD (attention deficit disorder) without hyperactivity F98.8 [facility] [address] [address] Jun, Skin lesion L98.9 [facility] [id number] [place] [address] 14288- 1100 Jun, Severe persistent reactive airway disease with acute exacerbation J45.51 [facility] [id number] [address]- 8884 Jun, Generalized anxiety disorder F41.1 and ADD (attention deficit disorder) without hyperactivity F98.8 [facility] [id number] [place] [address] 37722 -7651 16 May, 2017 Other specified bacterial agents as the cause of diseases classified elsewhere B96.89 and Acute pharyngitis due to other specified organisms J02.8 [place] [id number] [place] [address] 79055- 9233 14 May, 2017 Generalized anxiety disorder F41.1 [place] [id number] [place] [address] 56570- 7343 14 May, 2017 Shortness of breath R06.02 ; Moderate episode of recurrent major depressive disorder F33.1 and Anxiety F41.9 [facility] [id number] [place] [address] 53336 -2599 14 Jan, 2017 Folliculitis L73.9 [place] [id number] [place] [address] 26311- 1840 23 May, 2016 control counseling Z30.09 [place] [id number] [place] [address] 60538- 7134 15 Nov, 2015 Family planning, BCP ( control pills) maintenance Z30.41 [place] [id number] [place] [address] 22764- 6393 August, [place] [id number] [place] [address] 71904- 8346 Apr, Encounter for counseling regarding contraception Z30.9 ; Genital herpes, unspecified A60.00 ; OCP (oral contraceptive pills) initiation Z30.011 and Routine screening for STI (sexually transmitted infection) Z11.3 [place] [id number] [place] [address] 59755- 9315 14 Jul, 2014 [place] [id number] [place] [address] 54605- 0815 13 Jul, 2014 [place] [id number] [place] [address] 06027- 8844 Apr, [facility] [place] [facility] [address] [id number] [place] [address]- 9649 Apr, [facility] [place] [facility] [address] [id number] [place] [address]- 1654 Mar, [facility] [place] [facility] [address] [id number] [place] [address]- 5448 Mar, [facility] [place] [facility] [address] [id number] [place] [address]- 1650 Jan, [facility] [place] [facility] [address] [id number] [place] [address]- 4906 Jan, [facility] [place] [facility] [address] [id number] [place] [address]- 9402 Sep, [facility] [place] [facility] [address] [id number] [place] [address]- 8233 Sep, [facility] [place] [facility] [address] [id number] [place] [address]- 2765 Jul, [facility] [place] [facility] [address] [id number] [place] [address]- 2841 Jul, [facility] [place] [facility] [address] [id number] [place] [address]- 5123 Jun, [facility] [place] [facility] [address] [id number] [place] [address]- 8527 Jun, [facility] [place] [facility] [address] [id number] [address]- 0186 May, [facility] [place] [facility] [address] [id number] [place] [address]- 5484 May, [facility] [place] [facility] [address] [id number] [place] [address]573 May, [facility] [place] [facility] [address] [id number] [place] [address]- 0769 May, [facility] [place] [facility] [address] [id number] [place] [address]- 9666 18 May, 2013 [facility] [place] [facility] [address] [id number] [place] [address]- 1816 May, [facility] [place] [facility] [address] [id number] [place] [address]- 2196 May, [facility] [place] [facility] [address] [id number] [place] [address]- 7486 May, [facility] [place] [facility] [address] [id number] [place] [address]- 8104 May, [facility] [place] [facility] [address] [id number] [place] [address]- 2096 May, [facility] [place] [facility] [address] [id number] [place] [address]- 4706 Apr, [facility] [place] [facility] [address] [id number] [place] [address]- 3780 Apr, [facility] [place] [facility] [address] [id number] [place] [address]- 7137 Apr, [facility] [place] [facility] [address] [id number] [place] [address]- 9051 Apr, [facility] [place] [facility] [address] [id number] [place] [address]- 7325 Apr, [facility] [place] [facility] [address] [id number] [place] [address]- 6625 Apr, [facility] [place] [facility] [address] [id number] [place] [address]- 4120 Apr, [facility] [place] [facility] [address] [id number] [place] [address]- 5024 Apr, [facility] [place] [facility] [address] [id number] [place] [address]- 5565 Apr, [facility] [place] [facility] [address] [id number] [place] [address]- 4411 Apr, [facility] [id number] [address]- 1660 Apr, [facility] [address] [address]- 6579 Apr, [facility] [address] 0705 Apr, [facility] [address] 1444 Apr, [facility] [address] 7383 Mar, [facility] [address] 3467 Mar, [facility] [address] [address]- 6545 Mar, [facility] [address] [address]- 9904 Mar, [facility] [address] [address]- 5192 Feb, [facility] [address] [address]- 3896 Feb, [facility] [address] [address]- 0311 Feb, [facility] [address] [address]- 6738 Feb, [facility] [address] [address]- 4837 Nov, [facility] [address] [address]- 4886 Sep, IMMUNIZATIONS No Known Immunizations SOCIAL HISTORY Never Assessed REASON FOR VISIT Follow-up Anxiety PLAN OF CARE Activity Details Follow Up 2 Weeks Reason: Follow-up VITAL SIGNS MEDICATIONS Unknown Medications RESULTS No Results PROCEDURES Procedure Date Ordered Result Body Site Psychotherapy, patient &/family, 45 minutes, established patient June 06, 2017 INSTRUCTIONS MEDICATIONS ADMINISTERED No Known Medications MEDICAL (GENERAL) HISTORY Type Description Date Medical History genital herpes Medical History depression
--- OUTSIDE RECORDS SUMMARY | 2018-08-07 18:56 | XMS REPORT ---
Author Author OSMEL GARCIA Organization [facility] Address [address] [place] [address] Care Team Providers Care Wood Caulker Name Role Phone RADHAHEYDIOSMEL Unavailable PROBLEMS Type Condition ICD9-CM Code UCO25-SM Code Onset Dates Condition Status SNOMED Code Problem ADD (attention deficit disorder) without hyperactivity F98.8 Active 91634214 Problem Generalized anxiety disorder F41.1 Active 13927485 Problem Genital herpes, unspecified A60.00 Active 95532881 Problem Moderate episode of recurrent major depressive disorder F33.1 Active 746547059 Problem Migraine with aura and without status migrainosus, not intractable G43.109 Active 4021170 ALLERGIES No Information ENCOUNTERS Encounter Location Date Diagnosis [place] [address] [id number] [place] [address] 92533- 6838 Nov, [place] [id number] [place] [address] 28698- 8475 Oct, [place] [id number] [place] [address] 86936- 0555 Oct, Generalized anxiety disorder F41.1 ; Moderate episode of recurrent major depressive disorder F33.1 and ADD (attention deficit disorder) without hyperactivity F98.8 [place] [id number] [place] [address] 58481- 6538 Sep, ADD (attention deficit disorder) without hyperactivity F98.8 [place] [id number] [place] [address] 73807- 5728 Sep, Generalized anxiety disorder F41.1 ; Moderate episode of recurrent major depressive disorder F33.1 and ADD (attention deficit disorder) without hyperactivity F98.8 [place] [id number] [place] [address] 68452- 4502 Sep, ADD (attention deficit disorder) without hyperactivity F98.8 [facility] [address], [place] [address]- 1593 August, Generalized anxiety disorder F41.1 ; Moderate episode of recurrent major depressive disorder F33.1 and ADD (attention deficit disorder) without hyperactivity F98.8 [facility] [address], [place] [address]- 4516 August, Generalized anxiety disorder F41.1 ; Moderate episode of recurrent major depressive disorder F33.1 and ADD (attention deficit disorder) without hyperactivity F98.8 [facility] [id number] [place] [address] 19077- 6225 Jul, ADD (attention deficit disorder) without hyperactivity F98.8 [facility] [id number] [place] [address] 28544- 2507 Jul, ADD (attention deficit disorder) without hyperactivity F98.8 [place] [id number] [place] [address] 20256- 3239 Jul, Generalized anxiety disorder F41.1 ; Moderate episode of recurrent major depressive disorder F33.1 and ADD (attention deficit disorder) without hyperactivity F98.8 [facility] [id number] [place] [address] 51074- 2970 Jun, Rash R21 [facility] [id number] [place] [address] 50222- 1130 Jun, Generalized anxiety disorder F41.1 and ADD (attention deficit disorder) without hyperactivity F98.8 [facility] [address] [address] -[address]47 Jun, Skin lesion L98.9 [facility] [id number] [place] [address] 35556- 7781 Jun, Severe persistent reactive airway disease with acute exacerbation J45.51 [facility] [id number] [address]- 4610 Jun, Generalized anxiety disorder F41.1 and ADD (attention deficit disorder) without hyperactivity F98.8 [facility] [id number] [place] [address] 11856 -8212 16 May, 2017 Other specified bacterial agents as the cause of diseases classified elsewhere B96.89 and Acute pharyngitis due to other specified organisms J02.8 [place] [id number] [place] [address] 11241- 9277 14 May, 2017 Generalized anxiety disorder F41.1 [place] [id number] [place] [address] 85553- 5950 14 May, 2017 Shortness of breath R06.02 ; Moderate episode of recurrent major depressive disorder F33.1 and Anxiety F41.9 [facility] [id number] [place] [address] 15435 -9410 14 Jan, 2017 Folliculitis L73.9 [place] [id number] [place] [address] 78253- 5055 23 May, 2016 control counseling Z30.09 [place] [id number] [place] [address] 44777- 8204 15 Nov, 2015 Family planning, BCP ( control pills) maintenance Z30.41 [place] [id number] [place] [address] 74820- 5400 August, [place] [id number] [place] [address] 17878- 3288 Apr, Encounter for counseling regarding contraception Z30.9 ; Genital herpes, unspecified A60.00 ; OCP (oral contraceptive pills) initiation Z30.011 and Routine screening for STI (sexually transmitted infection) Z11.3 [place] [id number] [place] [address] 21716- 2033 14 Jul, 2014 [place] [id number] [place] [address] 94648- 9571 13 Jul, 2014 [place] [id number] [place] [address] 07543- 4629 Apr, [facility] [place] [facility] [address] [id number] [place] [address]- 5669 Apr, [facility] [place] [facility] [address] [id number] [place] [address]- 1620 Mar, [facility] [place] [facility] [address] [id number] [place] [address]- 7391 Mar, [facility] [place] [facility] [address] [id number] [place] [address]- 4229 Jan, [facility] [place] [facility] [address] [id number] [place] [address]- 4728 Jan, [facility] [place] [facility] [address] [id number] [place] [address]- 6968 Sep, [facility] [place] [facility] [address] [id number] [place] [address]- 9538 Sep, [facility] [place] [facility] [address] [id number] [place] [address]- 1268 Jul, [facility] [place] [facility] [address] [id number] [place] [address]- 2211 Jul, [facility] [place] [facility] [address] [id number] [place] [address]- 6990 Jun, [facility] [place] [facility] [address] [id number] [place] [address]- 0416 Jun, [facility] [place] [facility] [address] [id number] [address]- 9218 May, [facility] [place] [facility] [address] [id number] [place] [address]- 9076 May, [facility] [place] [facility] [address] [id number] [place] 5172 May, [facility] [place] [facility] [address] [id number] [place] [address]- 2179 May, [facility] [place] [facility] [address] [id number] [place] [address]- 2423 18 May, 2013 [facility] [place] [facility] [address] [id number] [place] [address]- 0016 May, [facility] [place] [facility] [address] [id number] [place] [address]- 9486 May, [facility] [place] [facility] [address] [id number] [place] [address]- 6166 May, [facility] [place] [facility] [address] [id number] [place] [address]- 9548 May, [facility] [place] [facility] [address] [id number] [place] [address]- 6976 May, [facility] [place] [facility] [address] [id number] [place] [address]- 7479 Apr, [facility] [place] [facility] [address] [id number] [place] [address]- 2217 Apr, [facility] [place] [facility] [address] [id number] [place] [address]- 6193 Apr, [facility] [place] [facility] [address] [id number] [place] [address]- 0395 Apr, [facility] [place] [facility] [address] [id number] [place] [address]- 4825 Apr, [facility] [place] [facility] [address] [id number] [place] [address]- 6862 Apr, [facility] [place] [facility] [address] [id number] [place] [address]- 3159 Apr, [facility] [place] [facility] [address] [id number] [place] [address]- 7342 Apr, [facility] [place] [facility] [address] [id number] [place] [address]- 4600 Apr, [facility] [place] [facility] [address] [id number] [place] [address]- 5778 Apr, [facility] [id number] [address]- 0438 Apr, [facility] [address], [place] [address]- 5820 Apr, [facility] [address] 8538 Apr, [facility] [address] 7995 Apr, [facility] [address] 5674 Mar, [facility] [address] 2593 Mar, [facility] [address] [address]- 7129 Mar, [facility] [address], [place] [address]- 7431 Mar, [facility] [address], [place] [address]- 5969 Feb, [facility] [address], [place] [address]- 0946 Feb, [facility] [address], [place] [address]- 7095 Feb, [facility] [address], [place] [address]- 6209 Feb, [facility] [address], [place] [address]- 2955 Nov, [facility] [address], [place] [address]- 3364 Sep, IMMUNIZATIONS No Known Immunizations SOCIAL HISTORY Never Assessed REASON FOR VISIT Follow-up Anxiety PLAN OF CARE Activity Details Follow Up 2 Weeks Reason: Follow-up VITAL SIGNS MEDICATIONS Unknown Medications RESULTS No Results PROCEDURES Procedure Date Ordered Result Body Site Psychotherapy, patient &/family, 45 minutes, established patient June 24, 2017 INSTRUCTIONS MEDICATIONS ADMINISTERED No Known Medications MEDICAL (GENERAL) HISTORY Type Description Date Medical History genital herpes Medical History depression
--- OUTSIDE RECORDS SUMMARY | 2018-08-07 18:57 | XMS REPORT | Continuity of Care Document ---
Author Organization Unknown Address Unknown Allergies Active Description Code Type Severity Reaction Onset Reported/Identified Relationship to Patient Clinical Status Yes Penicillins [id number] Drug Allergy Unknown N/A 12/08/2012 Yes Penicillins Drug Allergy N/A N/A 02/27/2013 Medications There is no data. Problems Date Dx Coded Attending Type Code Diagnosis Diagnosed By 09/15/2012 461.9 SINUSITIS ACUTE 09/15/2012 ANAND MONGE MD 461.9 SINUSITIS ACUTE 09/15/2012 NILAY FAJARDO LCPC 461.9 SINUSITIS ACUTE 09/15/2012 ANAND MONGE MD 461.9 SINUSITIS ACUTE 09/15/2012 ELIAS GARCIA PHD 461.9 SINUSITIS ACUTE 09/15/2012 ELIAS GARCIA PHD 461.9 SINUSITIS ACUTE 09/15/2012 DARBY CARLIN DDS 461.9 SINUSITIS ACUTE 09/15/2012 RUTHANN BAKER DO 461.9 SINUSITIS ACUTE 09/15/2012 DARBY CARLIN DDS 461.9 SINUSITIS ACUTE 09/15/2012 JUSTEN GUILLEN APRN A 461.9 SINUSITIS ACUTE 09/15/2012 ANAND MONGE MD 461.9 SINUSITIS ACUTE 09/15/2012 JUSTEN GUILLEN APRN A 461.9 SINUSITIS ACUTE 09/15/2012 RUTHANN BAKER DO 461.9 SINUSITIS ACUTE 09/15/2012 RUTHANN BAKER DO 461.9 SINUSITIS ACUTE 11/12/2012 ANAND MONGE MD V03.9 NEED FOR PROPHYLACTIC VACCINATION AND INOCULATION AGAINST UNSPECIFIED SINGLE BACTERIAL DISEASE 11/12/2012 ANAND MONGE MD V20.2 WELL CHILD 11/12/2012 ANAND MONGE MD V25.01 GENERAL COUNSELING ON PRESCRIPTION OF ORAL CONTRACEPTIVES 11/12/2012 NILAY FAJARDO LCPC V03.9 NEED FOR PROPHYLACTIC VACCINATION AND INOCULATION AGAINST UNSPECIFIED SINGLE BACTERIAL DISEASE 11/12/2012 NILAY FAJARDO LCPC V20.2 WELL CHILD 11/12/2012 NILAY FAJARDO LCPC V25.01 GENERAL COUNSELING ON PRESCRIPTION OF ORAL CONTRACEPTIVES 11/12/2012 ANAND MONGE MD V03.9 NEED FOR PROPHYLACTIC VACCINATION AND INOCULATION AGAINST UNSPECIFIED SINGLE BACTERIAL DISEASE 11/12/2012 ANAND MONGE MD V20.2 WELL CHILD 11/12/2012 ANAND MONGE MD V25.01 GENERAL COUNSELING ON PRESCRIPTION OF ORAL CONTRACEPTIVES 11/12/2012 ELIAS GARCIA PHD V03.9 NEED FOR PROPHYLACTIC VACCINATION AND INOCULATION AGAINST UNSPECIFIED SINGLE BACTERIAL DISEASE 11/12/2012 ELIAS GARCIA PHD V20.2 WELL CHILD 11/12/2012 ELIAS GARCIA PHD V25.01 GENERAL COUNSELING ON PRESCRIPTION OF ORAL CONTRACEPTIVES 11/12/2012 ELIAS GARCIA PHD V03.9 NEED FOR PROPHYLACTIC VACCINATION AND INOCULATION AGAINST UNSPECIFIED SINGLE BACTERIAL DISEASE 11/12/2012 ELIAS GARCIA PHD V20.2 WELL CHILD 11/12/2012 ELIAS GARCIA PHD V25.01 GENERAL COUNSELING ON PRESCRIPTION OF ORAL CONTRACEPTIVES 11/12/2012 TESFAYE CASTROSDARBY V03.9 NEED FOR PROPHYLACTIC VACCINATION AND INOCULATION AGAINST UNSPECIFIED SINGLE BACTERIAL DISEASE 11/12/2012 WHITE DDSDARBY V20.2 WELL CHILD 11/12/2012 WHITE MATTHEWSDARBY J V25.01 GENERAL COUNSELING ON PRESCRIPTION OF ORAL CONTRACEPTIVES 11/12/2012 BAKER DO RUTHANN K V03.9 NEED FOR PROPHYLACTIC VACCINATION AND INOCULATION AGAINST UNSPECIFIED SINGLE BACTERIAL DISEASE 11/12/2012 BAKER DO RUTHANN K V20.2 WELL CHILD 11/12/2012 BAKER DO RUTHANN K V25.01 GENERAL COUNSELING ON PRESCRIPTION OF ORAL CONTRACEPTIVES 11/12/2012 WHITE DDSDARBY J V03.9 NEED FOR PROPHYLACTIC VACCINATION AND INOCULATION AGAINST UNSPECIFIED SINGLE BACTERIAL DISEASE 11/12/2012 WHITE DDSDARBY J V20.2 WELL CHILD 11/12/2012 WHITE MATTHEWSDARBY J V25.01 GENERAL COUNSELING ON PRESCRIPTION OF ORAL CONTRACEPTIVES 11/12/2012 JUSTEN GUILLEN APRN V03.9 NEED FOR PROPHYLACTIC VACCINATION AND INOCULATION AGAINST UNSPECIFIED SINGLE BACTERIAL DISEASE 11/12/2012 MINDY GLOBAL COMPENSATION MANAGER, JUSTEN A V20.2 WELL CHILD 11/12/2012 MINDYBraxton GALVEZ JUSTEN A V25.01 GENERAL COUNSELING ON PRESCRIPTION OF ORAL CONTRACEPTIVES 11/12/2012 ANAND MONGE MD V03.9 NEED FOR PROPHYLACTIC VACCINATION AND INOCULATION AGAINST UNSPECIFIED SINGLE BACTERIAL DISEASE 11/12/2012 ANAND MONGE MD V20.2 WELL CHILD 11/12/2012 ANAND MONGE MD V25.01 GENERAL COUNSELING ON PRESCRIPTION OF ORAL CONTRACEPTIVES 11/12/2012 MINDYDULCE Limon APRNIDI A V03.9 NEED FOR PROPHYLACTIC VACCINATION AND INOCULATION AGAINST UNSPECIFIED SINGLE BACTERIAL DISEASE 11/12/2012 MINDYBraxton GALVEZ JUSTEN A V20.2 WELL CHILD 11/12/2012 JUSTEN GUILLEN APRN A V25.01 GENERAL COUNSELING ON PRESCRIPTION OF ORAL CONTRACEPTIVES 11/12/2012 BAKER DO RUTHANN K V03.9 NEED FOR PROPHYLACTIC VACCINATION AND INOCULATION AGAINST UNSPECIFIED SINGLE BACTERIAL DISEASE 11/12/2012 BAKER DO RUTHANN K V20.2 WELL CHILD 11/12/2012 BAKER DO RUTHANN K V25.01 GENERAL COUNSELING ON PRESCRIPTION OF ORAL CONTRACEPTIVES 11/12/2012 BAKER DO RUTHANN K V03.9 NEED FOR PROPHYLACTIC VACCINATION AND INOCULATION AGAINST UNSPECIFIED SINGLE BACTERIAL DISEASE 11/12/2012 BAKER DO RUTHANN K V20.2 WELL CHILD 11/12/2012 BAKER DO RUTHANN K V25.01 GENERAL COUNSELING ON PRESCRIPTION OF ORAL CONTRACEPTIVES 02/27/2013 ANAND MONGE MD 296.20 MAJOR DEPRESSIVE AFFECTIVE DISORDER SINGLE EPISODE UNSPECIFIED DEGREE 02/27/2013 [facility], NILAY B 296.20 MAJOR DEPRESSIVE AFFECTIVE DISORDER SINGLE EPISODE UNSPECIFIED DEGREE 02/27/2013 ANAND MONGE MD 296.20 MAJOR DEPRESSIVE AFFECTIVE DISORDER SINGLE EPISODE UNSPECIFIED DEGREE 02/27/2013 RADHA CENTENO, ELIAS Rhodes 296.20 MAJOR DEPRESSIVE AFFECTIVE DISORDER SINGLE EPISODE UNSPECIFIED DEGREE 02/27/2013 ELIAS GARCIA PHD 296.20 MAJOR DEPRESSIVE AFFECTIVE DISORDER SINGLE EPISODE UNSPECIFIED DEGREE 02/27/2013 DARBY CARLIN DDS 296.20 MAJOR DEPRESSIVE AFFECTIVE DISORDER SINGLE EPISODE UNSPECIFIED DEGREE 02/27/2013 ISIS BAKER DOA K 296.20 MAJOR DEPRESSIVE AFFECTIVE DISORDER SINGLE EPISODE UNSPECIFIED DEGREE 02/27/2013 DARBY CARLIN DDS 296.20 MAJOR DEPRESSIVE AFFECTIVE DISORDER SINGLE EPISODE UNSPECIFIED DEGREE 02/27/2013 MINDY GALVEZ, JUSTEN A 296.20 MAJOR DEPRESSIVE AFFECTIVE DISORDER SINGLE EPISODE UNSPECIFIED DEGREE 02/27/2013 ANAND MONGE MD 296.20 MAJOR DEPRESSIVE AFFECTIVE DISORDER SINGLE EPISODE UNSPECIFIED DEGREE 02/27/2013 MINDYSHANTELLE GALVEZ, JUSTEN A 296.20 MAJOR DEPRESSIVE AFFECTIVE DISORDER SINGLE EPISODE UNSPECIFIED DEGREE 02/27/2013 ISIS BAKER DOA K 296.20 MAJOR DEPRESSIVE AFFECTIVE DISORDER SINGLE EPISODE UNSPECIFIED DEGREE 02/27/2013 ISIS BAKER DOA K 296.20 MAJOR DEPRESSIVE AFFECTIVE DISORDER SINGLE EPISODE UNSPECIFIED DEGREE 03/13/2013 [facility], NILAY B 296.22 MO DEPRESSIVE SINGLE MODERATE 03/13/2013 ANAND MONGE MD 296.22 MO DEPRESSIVE SINGLE MODERATE 03/13/2013 ELIAS GARCIA PHD 296.22 MO DEPRESSIVE SINGLE MODERATE 03/13/2013 ELIAS GARCIA PHD 296.22 MO DEPRESSIVE SINGLE MODERATE 03/13/2013 DARBY CARLIN DDS J 296.22 MO DEPRESSIVE SINGLE MODERATE 03/13/2013 RUTHANN BAKER DO K 296.22 MO DEPRESSIVE SINGLE MODERATE 03/13/2013 WHITE MATTHEWSDARBY 296.22 MO DEPRESSIVE SINGLE MODERATE 03/13/2013 MINDY GALVEZ JUSTEN A 296.22 MO DEPRESSIVE SINGLE MODERATE 03/13/2013 ANAND MONGE MD 296.22 MO DEPRESSIVE SINGLE MODERATE 03/13/2013 MINDY GALVEZ, JUSTEN A 296.22 MO DEPRESSIVE SINGLE MODERATE 03/13/2013 ISIS BAKER DOA K 296.22 MO DEPRESSIVE SINGLE MODERATE 03/13/2013 ISIS BAKER DOA K 296.22 MO DEPRESSIVE SINGLE MODERATE 04/14/2013 ELIAS GARCIA PHD 296.32 MO DEPRESSIVE RECURRENT MODERATE 04/14/2013 DARBY CARLIN DDS J 296.32 MO DEPRESSIVE RECURRENT MODERATE 04/14/2013 ISIS BAKER DOA K 296.32 MO DEPRESSIVE RECURRENT MODERATE 04/14/2013 TESFAYE CASTROSDRABY J 296.32 MO DEPRESSIVE RECURRENT MODERATE 04/14/2013 MINDY GALVEZ, JUSTEN A 296.32 MO DEPRESSIVE RECURRENT MODERATE 04/14/2013 ANAND MONGE MD 296.32 MO DEPRESSIVE RECURRENT MODERATE 04/14/2013 MINDY GALVEZ, JUSTEN A 296.32 MO DEPRESSIVE RECURRENT MODERATE 04/14/2013 RUTHANN BAKER DO 296.32 MO DEPRESSIVE RECURRENT MODERATE 04/14/2013 RUTHANN BAKER DO 296.32 MO DEPRESSIVE RECURRENT MODERATE 05/19/2013 RUTHANN BAKER DO V74.5 STD SCREEN 05/19/2013 TESFAYE CASTROS, DARBY J V74.5 STD SCREEN 05/19/2013 DULCE GUILLEN APRNIDI A V74.5 STD SCREEN 05/19/2013 ANAND MONGE MD V74.5 STD SCREEN 05/19/2013 DULCE GUILLEN APRNIDI A V74.5 STD SCREEN 05/19/2013 RUTHANN BAKER DO V74.5 STD SCREEN 05/19/2013 RUTHANN BAKER DO V74.5 STD SCREEN 06/03/2013 JUSTEN GUILLEN APRN A 054.10 HERPES SIMPLEX GENITAL 06/03/2013 ANAND MONGE MD 054.10 HERPES SIMPLEX GENITAL 06/03/2013 JUSTEN GUILLEN APRN A 054.10 HERPES SIMPLEX GENITAL 06/03/2013 RUTHANN BAKER DO 054.10 HERPES SIMPLEX GENITAL 06/03/2013 RUTHANN BAKER DO 054.10 HERPES SIMPLEX GENITAL 03/22/2014 RUTHANN BAKER DO V74.1 TB SCREENING Procedures Code [place] [address] PSYCH DIAGNOSTIC EVALUATION 03/13/2013 76947 PSYTX PT&/FAMILY 45 MINUTES 04/10/2013 25563 PSYTX PT&/FAMILY 30 MINUTES 04/16/2013 75697 PSYTX PT&/FAMILY 30 MINUTES 04/29/2013 68174 ROUTINE VENIPUNCTURE 05/19/2013 HERPSM1,2 HERPES SIMPLEX 1 AND 2, IGM, IGG 05/21/2013 97417 GC/CHLAM URINE (STATE) 05/25/2013 79641 HERPES SIMPLEX CULTURE 06/03/2013 98147 TEST, URINE (IN- HOUSE) 09/28/2013 23984 TB TEST INTRADERMAL 03/22/2014 Results Test Result Range PDM - 09 PANEL (PROFILE 1) - 09/09/17 11:59 Prescribed Drug 1 Vyvanse(TM) NRG Creatinine 117.5 mg/dL > or=20.0 pH 5.72 4.5 - 9.0 Oxidant NEGATIVE mcg/mL <200 Amphetamines POSITIVE ng/mL <500 Benzodiazepines NEGATIVE ng/mL <100 medMATCH Benzodiazepines CONSISTENT NRG Marijuana Metabolite NEGATIVE ng/mL <20 medMATCH Marijuana Metab CONSISTENT NRG Cocaine Metabolite NEGATIVE ng/mL <150 medMATCH Cocaine Metab CONSISTENT NRG Opiates NEGATIVE ng/mL <100 medMATCH Opiates CONSISTENT NRG Oxycodone NEGATIVE ng/mL <100 medMATCH Oxycodone CONSISTENT NRG COMMENT NRG Amphetamine 2173 ng/mL <250 medMATCH Amphetamine CONSISTENT NRG Methamphetamine NEGATIVE ng/mL <250 medMATCH Methamphetamine CONSISTENT NRG Barbiturates NEGATIVE ng/mL <300 medMATCH Barbiturates CONSISTENT NRG Methadone Metabolite NEGATIVE ng/mL <100 medMATCH Methadone Metab CONSISTENT NRG Phencyclidine NEGATIVE ng/mL <25 medMATCH Phencyclidine CONSISTENT NRG PDM - 09 PANEL (PROFILE 1) - 07/28/18 13:43 Prescribed Drug 1 Vyvanse(TM) NRG Creatinine 51.2 mg/dL > or=20.0 pH 7.17 4.5 - 9.0 Oxidant NEGATIVE mcg/mL <200 Amphetamines NEGATIVE ng/mL <500 medMATCH Amphetamines INCONSISTENT NRG Benzodiazepines NEGATIVE ng/mL <100 medMATCH Benzodiazepines CONSISTENT NRG Marijuana Metabolite NEGATIVE ng/mL <20 medMATCH Marijuana Metab CONSISTENT NRG Cocaine Metabolite NEGATIVE ng/mL <150 medMATCH Cocaine Metab CONSISTENT NRG Opiates NEGATIVE ng/mL <100 medMATCH Opiates CONSISTENT NRG Oxycodone NEGATIVE ng/mL <100 medMATCH Oxycodone CONSISTENT NRG COMMENT NRG Barbiturates NEGATIVE ng/mL <300 medMATCH Barbiturates CONSISTENT NRG Methadone Metabolite NEGATIVE ng/mL <100 medMATCH Methadone Metab CONSISTENT NRG Phencyclidine NEGATIVE ng/mL <25 medMATCH Phencyclidine CONSISTENT NRG Encounters ACCT No. Visit Date/Time Discharge Status Pt. Type Provider Facility Loc./Unit Complaint [id number] 03/22/2014 15:01:00 03/22/2014 23:59:59 [facility] Outpatient RUTHANN BAKER DO [id number] 09/28/2013 15:15:00 09/28/2013 23:59:59 [facility] Outpatient RUTHANN BAKER DO [id number] 09/28/2013 15:15:00 09/28/2013 23:59:59 [facility] Outpatient JUSTEN GUILLEN APRN [id number] 07/30/2013 11:17:00 07/30/2013 23:59:59 [facility] ANAND MONGE MD [id number] 06/03/2013 10:40:00 06/03/2013 23:59:59 [facility] Outpatient DULCE GUILLEN [address] [id number] 05/22/2013 11:33:00 05/22/2013 23:59:59 [facility] Outpatient DARBY CARLIN DDS [id number] 05/19/2013 17:49:00 05/19/2013 23:59:59 [facility] Outpatient RUTHANN BAKER DO [id number] 04/27/2013 12:40:00 04/27/2013 23:59:59 [facility] Outpatient DARBY CARLIN DDS [id number] 04/14/2013 13:51:00 04/14/2013 23:59:59 [facility] Outpatient ELIAS GARCIA PHD [id number] 04/10/2013 07:54:00 04/10/2013 23:59:59 [facility] Outpatient ELIAS GARCIA PHD [id number] 04/07/2013 14:37:00 04/07/2013 23:59:59 CLS Outpatient ANAND MONGE MD [id number] 03/13/2013 15:59:00 03/13/2013 23:59:59 [facility] Outpatient NILAY FAJARDO LCPC [id number] 03/04/2013 10:49:00 03/04/2013 23:59:59 [facility]LS Outpatient ANAND MONGE MD [id number] 09/15/2012 18:19:00 Document Registration [id number] 08/08/2016 15:56:00 08/08/2016 23:59:59 CLS Outpatient SUKUMAR STEARNS [facility] OCC RIGHT FOOT INJURY [id number] 12/10/2012 18:52:00 12/10/2012 22:57:00 DIS Emergency [id number] 12/08/2012 17:53:00 12/08/2012 20:12:00 DIS Emergency [id number] 03/13/2013 16:53:11 ACT Document Registration [id number] 07/28/2018 13:00:00 07/28/2018 23:59:59 CLS Outpatient FARIDA DE LUNA APRN [facility] [id number] 07/28/2018 13:00:00 Document Registration [id number] 09/09/2017 11:20:00 Document Registration
--- OUTSIDE RECORDS SUMMARY | 2018-08-07 18:57 | XMS REPORT ---
Author Author STEVEN FLOR [facility] eClinicalWorks Address Unknown Phone Unavailable Care Team Providers Care Right Of Way Agent Name Role Phone STEVEN FLOR CP Unavailable Allergies, Adverse Reactions, Alerts Substance Reaction Event Type Penicillins Info Not Available Non Drug Allergy Problems Problem Type Condition Code Onset Dates Condition Status Problem Genital herpes, unspecified A60.00 Active Problem OCP (oral contraceptive pills) initiation Z30.011 Active Problem Major depressive disorder, single episode, moderate F32.1 Active Assessment OCP (oral contraceptive pills) initiation Z30.011 Active Assessment Routine screening for STI (sexually transmitted infection) Z11.3 Active Assessment Encounter for counseling regarding contraception Z30.9 Active Assessment Genital herpes, unspecified A60.00 Active Medications Medication Code System Code Instructions Start Date End Date Status Dosage Ortho Tri-Cyclen Lo [facility] [id number] 0.18/0.215/0.25 MG-25 MCG Orally Once a day May 05, 2015 1 tablet Procedures Procedure Coding System Code Date URINE TEST CPT-4 92702 May 05, 2015 Office Visit, Est Pt., Level 3 CPT-4 52304 May 05, 2015 No Charge CPT-4 38060 May 05, 2015 Vital Signs Date/Time: May 05, 2015 Temperature 98.6 F Weight 150.4 lbs Height 67 in BMI 23.55 Index Blood Pressure Diastolic 70 mmHg Blood Pressure Systolic 110 mmHg Cardiac Monitoring Heart Rate 72 bpm BMIPercentile 68.98 % Wt Percentile 80.51 % Results Name Result Date Reference Range Unit Abnormality Flag TEST, URINE (IN HOUSE) ----RESULTS negative [id number] ----Lot # [id number] ----Control + [id number] ----Exp date [id number] Summary Purpose eClinicalWorks Submission
--- OUTSIDE RECORDS SUMMARY | 2018-08-07 18:57 | XMS REPORT | Continuity of Care Document ---
Author Author [facility] Organization [facility] Address Unknown Phone Unavailable Care Team Providers Care Correctional Supervisor Name Role Phone [facility] Insurance Providers Payer Name Policy Number Subscriber Name Relationship Domitila [employer] [id number] La Steven 01 Self / Same As Patient Advance Directives Directive Response Recorded Date Advance Directives N 12/10/12 6:59pm Health Care Power of Simulation Engineer N 12/10/12 6:59pm Organ Donor N 12/10/12 6:59pm Problems No Known Problems or Medical conditions. Social History History Response Recorded Date/Time Alcohol Use Rarely Uses 12/10/12 6:59pm Recreational Drug Use N 12/10/12 6:59pm Sexually Transmitted Disease N 12/10/12 6 :59pm HIV/AIDS N 12/10/12 6:59pm Allergies, Adverse Reactions, Alerts Allergen Type Severity Reaction Last Updated Penicillins Adverse Reaction Unknown 12/08/12 Medications Medication Dose Units Route Sig Qty Days Acyclovir (Zovirax) 400 Mg PO QID 7 Tramadol Hcl 50 Mg PO Q6H PRN 10 Metronidazole (Flagyl 500 Mg) 1 Each PO BID 10 Trimethoprim/Sulfamethoxazole (Bactrim Ds Tablet) 1 Each PO BID 10 [Bcp] Response Recorded Date/Time Status not known Unknown Results Test Date Result Interp. Ref. Range Urine Bacteria December 08, 2012 7:30pm FEW /HPF H - Urine Bilirubin December 08, 2012 7:30pm NEGATIVE - Urine Casts December 08, 2012 7:30pm NONE /LPF - Urine Clarity December 08, 2012 7:30pm SLIGHTLY CLOUDY - Urine Color December 08, 2012 7:30pm YELLOW - Urine Crystals December 08, 2012 7:30pm NONE /LPF - Urine Culture Indicated December 08, 2012 7:30pm YES - Urine Glucose (UA) December 08, 2012 7:30pm NEGATIVE - Urine Ketones December 08, 2012 7:30pm NEGATIVE - Urine Leukocyte Esterase December 08, 2012 7:30pm 1+ H - Urine Mucus December 08, 2012 7:30pm MODERATE /LPF H - Urine Nitrite December 08, 2012 7:30pm NEGATIVE - Urine Protein December 08, 2012 7:30pm NEGATIVE - Urine RBC December 08, 2012 7:30pm NONE /HPF - Urine Specific [place] December 08, 2012 7:30pm 1.025 H - Urine Squamous Epithelial Cells December 08, 2012 7:30pm 5-10 /HPF - Urine Urobilinogen December 08, 2012 7:30pm NORMAL MG/DL - Urine WBC December 08, 2012 7:30pm 5-10 /HPF H - Urine pH December 08, 2012 7:30pm 5 - Urine RBC (Auto) December 08, 2012 7:30pm NEGATIVE - Procedures Procedure Code Date Urine Culture 12/08/12 Encounters Encounter Location Date/Time Registered Emergency Room [facility] 12/10/12 6:52pm Departed Emergency Room [facility] 05/21 5:53pm
--- OUTSIDE RECORDS SUMMARY | 2018-08-07 18:57 | XMS REPORT | Continuity of Care Document ---
Author Author [facility] Organization [facility] Address Unknown Phone Unavailable Care Team Providers Care Side Stitcher Name Role Phone [facility] Insurance Providers Payer Name Policy Number Subscriber Name Relationship [facility] [employer] [id number] La Steven 01 Self / Same As Patient Advance Directives Directive Response Recorded Date Advance Directives N 12/08/12 6:40pm Health Care Power of Quenching Car Operator N 12/08/12 6:40pm Organ Donor N 12/08/12 6:40pm Problems No Known Problems or Medical conditions. Social History History Response Recorded Date/Time Alcohol Use Rarely Uses 12/08/12 6:40pm Recreational Drug Use N 12/08/12 6:40pm Sexually Transmitted Disease N 12/08/12 7 :06pm HIV/AIDS N 12/08/12 7:06pm Allergies, Adverse Reactions, Alerts Allergen Type Severity Reaction Last Updated Penicillins Adverse Reaction Unknown 12/08/12 Medications Medication Dose Units Route Sig Qty Days Tramadol Hcl 50 Mg PO Q6H PRN 10 Metronidazole (Flagyl 500 Mg) 1 Each PO BID 10 Trimethoprim/Sulfamethoxazole (Bactrim Ds Tablet) 1 Each PO BID 10 [Bcp] Response Recorded Date/Time Status not known Unknown Results No Known Relevant Diagnostic Tests, Laboratory Data and/or Discharge Summary. Encounters Encounter Location Date/Time Departed Emergency [facility] 05/21 5:53pm
--- OUTSIDE RECORDS SUMMARY | 2018-08-07 18:57 | XMS REPORT ---
Author Author ANAND MONGE Organization [facility] Address [address] [place] [address] Care Team Providers Care Engineering Assistant Name Role Phone ANAND MONGE Unavailable PROBLEMS Type Condition ICD9-CM Code KHW13-GM Code Onset Dates Condition Status SNOMED Code Problem Migraine with aura and without status migrainosus, not intractable G43.109 Active 6662177 Problem Genital herpes, unspecified A60.00 Active 58839398 Problem Major depressive disorder, single episode, moderate F32.1 Active 560747850 ALLERGIES Substance Reaction Event Type Date Status Penicillin V Potassium Unknown Drug Allergy May, Active SOCIAL HISTORY Never Assessed PLAN OF CARE Activity Details Follow Up prn, 1 Year Reason: VITAL SIGNS Height 67 in 2016-05-31 Weight 150 lbs 2016-05-31 Temperature 98.6 degrees Fahrenheit 2016-05-31 Heart Rate 90 bpm 2016-05-31 Respiratory Rate 18 2016-05-31 BMI 23.49 kg/m2 2016-05-31 Blood pressure systolic 110 mmHg 2016-05-31 Blood pressure diastolic 60 mmHg 2016-05-31 MEDICATIONS Medication Instructions Dosage Frequency Start Date End Date Duration Status Ortho Micronor 0.35 MG Orally Once a day 1 tablet 24h May, 28 day(s) Active RESULTS No Results PROCEDURES No Known procedures IMMUNIZATIONS No Known Immunizations MEDICAL (GENERAL) HISTORY Type Description Date Medical History genital herpes Medical History depression
[2018-08-07] MEDS ORDERED: CYCLOBENZAPRINE 10 MG (FLEXERIL) TAB PO SCH (19:30)
[2018-08-07] MEDS ORDERED: KETOROLAC 60 MG/2 ML VIAL IM ONE (19:30)
[2018-08-07] MEDS ORDERED: predniSONE 20 MG TAB PO ONE (19:30)
--- NOTE | 2018-08-07 19:32 | ED Back Pain ---
General Chief Complaint: Back Problems Stated Complaint: BACK AND R LEG PAIN Source of Information: Patient Exam Limitations: No Limitations History of Present Illness Date Seen by Provider: August 07, 2018 Time Seen by Provider: 19:32 Initial Comments 23-year-old female who presents to emergency room with complaints of right buttocks pain that radiates down her right leg. She reports she's had this pain from time to time but has became worse the last 2 days. She denies injury. Denies loss of bowel or bladder. Allergies and Home Medications Allergies Coded Allergies: Penicillins (Verified Adverse Reaction, Unknown, 12/08/12) Home Medications Acyclovir 400 Mg Tablet, 400 MG PO QID Prescribed by: ZULEMA YA on 12/10/122220 Cyclobenzaprine HCl 5 Mg Tablet, 5 MG PO TID Prescribed by: MICHEL MALCOLM on 08/07/182018 Fluconazole 200 Mg Tablet, 1 EACH PO DAILY, (Reported) Metronidazole 500 Mg Tab, 1 EACH PO BID Prescribed by: SANCHEZ GALVEZ on 12/08/122000 Prednisone 50 Mg Tab, 50 MG PO DAILY Prescribed by: MICHEL MALCOLM on 08/07/182018 Sulfamethoxazole/Trimethoprim 1 Each Tablet, 1 EACH PO BID Prescribed by: SANCHEZ GALVEZ on 12/08/122000 Tramadol Hcl 50 Mg Tablet, 50 MG PO Q6H PRN Prescribed by: SANCHEZ GALVEZ on 12/08/122000 Past Nobalef-Bmyglb-Cnydbh Hx Patient Social History Recent Foreign Travel: No Contact w/Someone Who Travel: No Immunizations Up To Date Tetanus Booster (TDap): Less than 5yrs Past Medical History Reproductive Disorders: No Female Reproductive Disorders: Denies Sexually Transmitted Disease: No HIV/AIDS: No Family Medical History No Pertinent Family Hx Physical Exam Vital Signs Capillary Refill : Height, Weight, BMI Height: '" Weight: 123lbs. oz. 55.383598ik; BMI Method:Stated Progress/Results/Core Measures Results/Orders My Orders Orders - MICHEL MALCOLM Ketorolac Injection (Toradol Injection) (08/07/18 19:30) Cyclobenzaprine Tablet (Flexeril Tablet) (08/07/18 19:30) Prednisone Tablet (Deltasone Tablet) (08/07/18 19:30) Medications Given in ED Current Medications Medications Dose Ordered Sig/Izabela Route Start Time Stop Time Status Last Admin Dose Admin Ketorolac Tromethamine 60 mg ONCE ONCE IM 08/07/18 19:30 08/07/18 19:31 DC 08/07/18 19:50 60 MG Prednisone 40 mg ONCE ONCE PO 08/07/18 19:30 08/07/18 19:31 DC 08/07/18 19:50 40 MG Departure Impression Primary Impression: Sciatica Disposition: HOME, SELF-CARE Condition: Stable/Unchanged Departure-Patient Inst. Decision time for Depature: 20:18 Referrals: [facility] [place] [facility] (PCP/Family) Primary Care Physician Patient Instructions: Sciatica Exercises, Sciatica Add. Discharge Instructions: Ibuprofen and Tylenol as directed by the bottle for pain relief. Take medication as directed. Primary care provider within 1 week for recheck. Return back to the emergency room for worsening symptoms or concerns as needed. All discharge instructions reviewed with patient and/or family. Voiced understanding. Scripts Cyclobenzaprine HCl (Cyclobenzaprine HCl) 5 Mg Tablet 5 MG PO TID, #10 TAB Prov: MICHEL MALCOLM 08/07/18 Prednisone (Prednisone) 50 Mg Tab 50 MG PO DAILY for 4 Days, #4 TAB Prov: MICHEL MALCOLM 08/07/18 Work/School Note: Work Release Form Date Seen in the Emergency Department: August 07, 2018 Return to Work: August 11, 2018 Restrictions: No Restrictions MICHEL MACLOLM August 07, 2018 19:32
[2018-08-07] MEDS ORDERED: PRD50T PO (20:19)
[2018-08-07] MEDS ORDERED: CYCL5TAB PO (20:19)
[2018-08-07 20:30] VITALS: BP 115/89
== END 2018-08-07 20:33 | disposition home or self-care (01) ==
LOC: EDUNIT# 18:46 → ER 18:47
DX: M54.41 Lumbago with sciatica, right side (principal); Z88.0 Allergy status to penicillin; Z79.52 Long term (current) use of systemic steroids
CPT/HCPCS: 99284